=== PATIENT | male | born 1965 | race Caucasian/White ===

== ENCOUNTER 2020-07-18 12:06 | Emergency (ER) | payer MEDICAID, SELFPAY ==
--- NOTE | ~2020-07-18 | XR_ITS ---
EXAMINATION: XR ANKLE, LEFT XR FOOT, LEFT CLINICAL INFORMATION: Fall, trauma, pain COMPARISON: None TECHNIQUE: 2 views left ankle and 2 views left foot are obtained along with a lateral view of the combined ankle and foot for a total of 5 views. FINDINGS: There are old postsurgical changes with screw tracks seen in the mid to lower tibia and fibula. There are old appearing posttraumatic deformity medial malleolus and distal fibular shaft and lateral malleolus without appreciable acute fracture line or cortical disruption. No visible ankle capsular effusion. The subtalar joint and calcaneus are unremarkable. Posterior calcaneal recess is preserved. There are diffuse osteoporotic changes in the ankle and foot with mottled attenuation most notably midfoot. There is a mild hallux valgus great toe. There is an oblique fracture line lateral base first proximal phalanx of indeterminate age, possibly subacute or older. There is questionable cortical disruption neck first proximal phalanx and proximal shaft second toe middle phalanx. XR/XR ankle LT min 3V IMPRESSION: 1. Old appearing posttraumatic changes distal fibula and medial malleolus. No visible acute ankle fracture or dislocation. 2. Fracture lateral base first proximal phalanx of indeterminate age, possibly subacute or older. Questionable hairline fracture neck first proximal phalanx and proximal shaft second toe middle phalanx. Recommend correlation with patient's symptoms and clinical exam. Correlation with outside imaging and/or orthopedic report or be helpful to discern if these areas are sequela from more remote injury.
--- NOTE | ~2020-07-18 | CT_ITS ---
EXAMINATION: HEAD AND CERVICAL SPINE CT WITHOUT CONTRAST CLINICAL INFORMATION: Head injury with loss of consciousness yesterday COMPARISON: Previous head CT July 2006 TECHNIQUE: Axial images through the head and cervical spine without contrast. Sagittal and coronal reconstructions on the technologist workstation were performed. Patient dose 735+4 9 1 mg/cm. This CT examination was performed using dose optimization techniques as appropriate, variously including the following: *Automated exposure control *Adjustment of mA and/or kV according to patient size (this includes techniques or standardized protocols for targeted exams where dose is matched to indication/reason for exam; i.e. extremities or head) *Use of iterative reconstruction technique FINDINGS: Head CT: There is artifact from implanted hearing device in the left temporal occipital lobe left parietal lobes. There is no evidence of an extra-axial collection. There is no evidence of intra-axial or extra-axial hemorrhage. The ventricles and extra-axial CSF spaces are appropriate. Sanches-white matter differentiation is normal. No mass, mass effect or infarct is seen. There is an implanted hearing device projecting over the left temporal bone. No skull fracture is seen. Visualized paranasal sinuses, mastoid air cells and middle ears are clear. Cervical spine CT: There is slight head tilt to the right and curvature of the proximal cervical spine to the left. Bone alignment is otherwise normal. No acute fracture or dislocation is seen. There is a fracture of the posterior left third rib that is probably old. There is question of old trauma to the left scapula versus the coracoclavicular ligament with soft tissue ossification. There is multilevel degenerative spondylosis and degenerative disc disease from C3-C3-C4 to C6-C7. Prevertebral soft tissues are normal. There is a soft tissue ossification of the nuchal ligament probably related to old soft tissue trauma. There is a 3 mm nodule at the left lung apex. This is more posteriorly located than apical nodule seen on March [address] scan and it is uncertain whether this is the same or a new nodule. CT/CT cervical spine wo con IMPRESSION: Head CT: Significant artifact from implanted hearing device. No acute findings. Cervical spine CT: No acute fracture or dislocation seen. Degenerative changes. 3 mm left apical pulmonary nodule.
--- NOTE | ~2020-07-18 | XR_ITS ---
EXAMINATION: XR ANKLE, LEFT XR FOOT, LEFT CLINICAL INFORMATION: Fall, trauma, pain COMPARISON: None TECHNIQUE: 2 views left ankle and 2 views left foot are obtained along with a lateral view of the combined ankle and foot for a total of 5 views. FINDINGS: There are old postsurgical changes with screw tracks seen in the mid to lower tibia and fibula. There are old appearing posttraumatic deformity medial malleolus and distal fibular shaft and lateral malleolus without appreciable acute fracture line or cortical disruption. No visible ankle capsular effusion. The subtalar joint and calcaneus are unremarkable. Posterior calcaneal recess is preserved. There are diffuse osteoporotic changes in the ankle and foot with mottled attenuation most notably midfoot. There is a mild hallux valgus great toe. There is an oblique fracture line lateral base first proximal phalanx of indeterminate age, possibly subacute or older. There is questionable cortical disruption neck first proximal phalanx and proximal shaft second toe middle phalanx. XR/XR foot LT min 3V IMPRESSION: 1. Old appearing posttraumatic changes distal fibula and medial malleolus. No visible acute ankle fracture or dislocation. 2. Fracture lateral base first proximal phalanx of indeterminate age, possibly subacute or older. Questionable hairline fracture neck first proximal phalanx and proximal shaft second toe middle phalanx. Recommend correlation with patient's symptoms and clinical exam. Correlation with outside imaging and/or orthopedic report or be helpful to discern if these areas are sequela from more remote injury.
[2020-07-18 12:22] VITALS: BP 125/82; BP 164/62; PULSE 76; PULSE 78; RESP 16; TEMP 36.3; O2SAT 97; O2SAT 98; BMI 24.2
--- NOTE | 2020-07-18 15:09 | ED.FALL ---
HPI - Fall General Chief Complaint: Extremity Injury, Lower Stated Complaint: ? L TOE FX S/P FALL FROM W/C T-1 Time Seen by Provider: 07/18/20 12:41 Source: patient Mode of arrival: wheelchair Limitations: no limitations History of Present Illness HPI Narrative: 55-year-old male is wheelchair bound with a past medical history of amputation of right leg traumatic, DVT, left ankle fracture,, hepatitis-C, Crohn's disease, and depression presenting to the ED with complaints of a fall with head injury with loss of consciousness unclear down time and right ankle/foot pain since yesterday when he had a mechanical fall where his wheelchair wheel caught in crack of side walk ramp making his wheelchair flip over forward. Reports a bystander helped him up from his wheelchair and brought him home and he decided not to come to the hospital at that time. Although concern for his left ankle/foot due to increasing pain reports he had a old fracture to the left ankle. Currently has a walking boot in place. Denies symptoms prior to the fall. Denies any dizziness, headaches, lightheadedness, change in vision, neck pain/stiffness, nausea/vomiting, cough, sore throat, chest pain, shortness of breath, dyspnea on exertion, orthopnea, palpitations, no pain, diarrhea, constipation, penile discharge, dysuria, hematuria, back pain or any other injuries complaints or concerns at this time. MD complaint: fall Onset (ago): day(s) (Yesterday) Fall from: wheelchair Fall witnessed: yes, by bystander Place fall occurred: street Loss of consciousness: yes Prolonged down time: unclear Symptoms prior to fall: none Location of injury: head and other (right ankle/foot) Severity: moderate Quality: aching Associated symptoms (after fall): other (right ankle/foot pain ) Related Data Previous Rx's Medication Instructions Recorded oxycodone 5 mg PO BID PRN #10 tab 07/18/20 Allergies Allergy/AdvReac Type Severity Reaction Status Date / Time Penicillins [PENICILLINS] Allergy Severe SWELLING Unverified 01/13/20 15:32 shellfish derived Allergy Severe SWELLING Unverified 01/13/20 15:32 [SHELLFISH DERIVED] penicillin G Allergy Unknown facial Verified 05/26/17 00:00 swelling CHOCOLATE Allergy Severe SWELLING Uncoded 01/13/20 15:32 Review of Systems Review of Systems: Constitutional : No changes in activity, No lethargy, No recent prior head injury, No agitation, No increased fussiness ENT/Mouth : No Ear Pain, No Nasal discharge/drainage Eyes: No Eye Pain, No Swelling, No Redness, No Foreign Body, No Vision Changes Cardiovascular : No Chest Pain, No SOB Respiratory : No Cough Gastrointestinal : No Nausea, No Vomiting, No abdominal Pain Genitourinary : No Dysuria, No Urinary Frequency, No Urinary Incontinence, No Urgency, No Flank Pain Musculoskeletal : + joint pain, No neck stiffness, No back pain/injury Skin : No lacerations Neuro : + fall c head injury and LOC, No unsteady gait, No Paresthesias, No altered mental status, No Headache Yes all other systems are reviewed and are negative COUNT INCLUDES THE [facility] Past Medical History Attestation statement: The following information was validated with the patient. Medical History Amputation of leg, right, traumatic DVT (deep venous thrombosis) Social History Social History Advance Directives: No Advance Directives Information Provided: No Physical Exam Vital Signs: Vital Signs: Last Vital Signs Temp 98.4 F 07/18/20 15:39 Pulse 62 07/18/20 15:39 Resp 16 07/18/20 15:39 BP 124/79 07/18/20 15:39 Pulse Ox 99 07/18/20 15:39 Body Mass Index 24.2 Vital signs have been reviewed as normal and appeared to be correct. Blood pressure normal. Heart rate normal. Respiration rate normal. Temperature normal. Oxygen saturation normal. Appearance: Alert. Oriented X3. No acute distress. Head: Normal external exam. Normocephalic. Atraumatic. Able to rotate head bilaterally. Eyes: PERRLA. EOMI. No nystagmus noted. Conjunctiva and sclera normal. Eyelids normal. Corneal reflex normal. ENT: EAC normal. No hemotympanum. No septal hematoma noted. No nasal drainage noted. TM's Normal. Hearing normal. Pharynx normal. Uvula midline. tongue midline. Moist mucous membranes. No trismus noted. No drooling noted. No muffled voice noted. No nystagmus noted. Neck: Normal inspection. Neck supple. FROM. No adenopathy. Trachea midline. Thyroid Normal. No meningeal signs. No neck mass noted. CVS: Normal heart rate and rhythm. Heart sound normal. No murmurs noted. Pulses normal throughout. Respiratory: No respiratory distress. Painless inspiration. Breath sounds normal. No wheezes/rales/rhonchi noted. Chest nontender. No accessory muscle usage noted or decreased air movement noted. Abdomen: Soft and nontender. Bowel sounds normal in all 4 quadrants. No distention noted. No organomegaly noted. No visible injury noted. Back: Nontender. No signs of infection or trauma. Full range of motion noted. Skin: Skin warm and dry. Normal skin color. Normal skin turgor. No rashes/lesions/lacerations noted. Extremities: Patient with amputation to left lower extremity right below the hip joint no signs of infection on stump. Patient with tenderness to palpation to medial and lateral aspect of left ankle no laxity or obvious deformities noted or bruising or abrasions noted. No signs infection noted to left ankle. No calf tenderness noted. Patient with tenderness to palpation to left foot at the 1/2/3 toes with soft tissue swelling. No signs of infection noted. No lower extremity edema. Otherwise all other Extremities exhibit normal range of motion and nontender. Able to shrug shoulders bilaterally and keep up against resistance. Neuro: Oriented X 3. No motor deficit. No sensory deficit. Reflexes normal. Moving all extremities. No focal motor deficits. Cranial nerves II-XI intact bilaterally. Facial strength normal. Normal cognition. Speech normal. Strength 5/5 throughout. No pronator drift. No tremor noted. No fasciculations noted. No rigidity noted. Muscle tone normal throughout. No asterixis noted. Course Course Course Narrative: 13:35pm - 55-year-old male is wheelchair bound with a past medical history of amputation of right leg traumatic, DVT, left ankle fracture,, hepatitis-C, Crohn's disease, and depression presenting to the ED with complaints of a fall with head injury with loss of consciousness unclear down time and right ankle/foot pain since yesterday when he had a mechanical fall where his wheelchair wheel caught in crack of side walk ramp making his wheelchair flip over forward yesterday. - on exam patient is alert and oriented x3. Not in any acute distress. Vital signs are stable within normal limits. No focal neuro deficits are noted. Lungs are clear to auscultation. CV RRR. Abdomen is soft and nontender. Patient noted to have right lower extremity below the hip joint amputation stump appears normal no signs of infection. Left lower leg ankle joint patient with mild soft tissue swelling and tenderness to palpation no signs of infection noted. No calf tenderness or pitting edema noted patient with tenderness to palpation to 1/2/3 toes with mild soft tissue swelling and tenderness to palpation no obvious deformities or signs of infection noted. No other signs of trauma noted. - will obtain CT scan of brain/cervical spine and x-ray of left ankle and left foot Reevaluation(s) Reevaluation #1: - CT scan of brain/cervical spine within normal limits real chronic changes no acute processes noted. X-ray of left ankle revealed chronic changes no acute processes. Foot x-ray revealed age indeterminate fracture to 1st and 5th toes therefore will DC home with instructions to continue using his orthopedic boot give pain meds and referral to Orthopedics and instructions return if any new or worsening symptoms. Patient understands agrees with this plan. Time: 16:20 MDM - Fall Medical Records Attestation: I reviewed the patient's medical records. Lab Data Attestation: I reviewed the patient's lab results. Imaging Data CT scan of brain/cervical spine: Attestation: I personally reviewed and interpreted this imaging study as follows: Radiologist's impression: FINDINGS: Head CT: There is artifact from implanted hearing device in the left temporal occipital lobe left parietal lobes. There is no evidence of an extra-axial collection. There is no evidence of intra-axial or extra-axial hemorrhage. The ventricles and extra-axial CSF spaces are appropriate. Sanches-white matter differentiation is normal. No mass, mass effect or infarct is seen. There is an implanted hearing device projecting over the left temporal bone. No skull fracture is seen. Visualized paranasal sinuses, mastoid air cells and middle ears are clear. Cervical spine CT: There is slight head tilt to the right and curvature of the proximal cervical spine to the left. Bone alignment is otherwise normal. No acute fracture or dislocation is seen. There is a fracture of the posterior left third rib that is probably old. There is question of old trauma to the left scapula versus the coracoclavicular ligament with soft tissue ossification. There is multilevel degenerative spondylosis and degenerative disc disease from C3-C3-C4 to C6-C7. Prevertebral soft tissues are normal. There is a soft tissue ossification of the nuchal ligament probably related to old soft tissue trauma. There is a 3 mm nodule at the left lung apex. This is more posteriorly located than apical nodule seen on March [address] scan and it is uncertain whether this is the same or a new nodule. CT/CT cervical spine wo con IMPRESSION: Head CT: Significant artifact from implanted hearing device. No acute findings. Cervical spine CT: No acute fracture or dislocation seen. Degenerative changes. 3 mm left apical pulmonary nodule. Left ankle/foot x-ray: Attestation: I personally reviewed and interpreted this imaging study as follows: Radiologist's impression: FINDINGS: There are old postsurgical changes with screw tracks seen in the mid to lower tibia and fibula. There are old appearing posttraumatic deformity medial malleolus and distal fibular shaft and lateral malleolus without appreciable acute fracture line or cortical disruption. No visible ankle capsular effusion. The subtalar joint and calcaneus are unremarkable. Posterior calcaneal recess is preserved. There are diffuse osteoporotic changes in the ankle and foot with mottled attenuation most notably midfoot. There is a mild hallux valgus great toe. There is an oblique fracture line lateral base first proximal phalanx of indeterminate age, possibly subacute or older. There is questionable cortical disruption neck first proximal phalanx and proximal shaft second toe middle phalanx. XR/XR foot LT min 3V IMPRESSION: 1. Old appearing posttraumatic changes distal fibula and medial malleolus. No visible acute ankle fracture or dislocation. 2. Fracture lateral base first proximal phalanx of indeterminate age, possibly subacute or older. Questionable hairline fracture neck first proximal phalanx and proximal shaft second toe middle phalanx. Recommend correlation with patient's symptoms and clinical exam. Correlation with outside imaging and/or orthopedic report or be helpful to discern if these areas are sequela from more remote injury. Discharge Plan Discharge Clinical Impression: Ankle sprain and strain, Fall, Head injury with loss of consciousness, Fracture of toe of left foot Patient Disposition: Home, Self-Care Instructions: Toe Fracture (ED), Head Injury (ED) Prescriptions: New oxycodone 5 mg tablet 5 mg PO BID PRN (Reason: pain) Qty: 10 RF: 0 Referrals: Aleisha Blanca MD [Physician] - 2 days (Call tomorrow to make a follow-up appointment within next week or 2)
[2020-07-18 15:39] VITALS: BP 124/79; PULSE 62; RESP 16; TEMP 36.9; O2SAT 99
[2020-07-18] MEDS: oxyCODONE HCl Immed Release 5 MG TABLET PO (16:27)
== END 2020-07-18 16:30 | disposition home or self-care (01) ==
PROVIDERS: Emergency Provider Emergency Medicine Emergency Medical Services
DX: S09.90XA Unspecified injury of head, initial encounter (principal); S93.402A Sprain of unspecified ligament of left ankle, initial encounter; S92.415A Nondisplaced fracture of proximal phalanx of left great toe, initial encounter for closed fracture; S92.525A Nondisplaced fracture of middle phalanx of left lesser toe(s), initial encounter for closed fracture; W05.0XXA Fall from non-moving wheelchair, initial encounter; K50.90 Crohn's disease, unspecified, without complications; Z89.611 Acquired absence of right leg above knee; Z86.718 Personal history of other venous thrombosis and embolism; Z86.19 Personal history of other infectious and parasitic diseases; Y93.89 Activity, other specified; Y92.480 Sidewalk as the place of occurrence of the external cause; Y99.9 Unspecified external cause status
CPT/HCPCS: 70450; 72125; 73610; 73630; 99284

== ENCOUNTER → 2020-08-08 09:52 | Outpatient (BNVA) | payer MEDICAID, SELFPAY | PROVIDERS: PCP Family Medicine; Visit Provider Physician Assistant | DX: S92.402A Displaced unspecified fracture of left great toe, initial encounter for closed fracture (principal); S92.503A Displaced unspecified fracture of unspecified lesser toe(s), initial encounter for closed fracture | CPT/HCPCS: 99202 ==

== ENCOUNTER 2020-09-05 19:58 | Emergency (ER) | payer MEDICAID, SELFPAY ==
--- NOTE | ~2020-09-05 | XR_ITS ---
EXAMINATION: XR CHEST CLINICAL INFORMATION: Pain. COMPARISON: Chest x-ray 12/12/2015. TECHNIQUE: Frontal view of the chest was obtained. 8:40 PM. FINDINGS: Vague small perihilar airspace opacity in the left lung in the superior left perihilar region. The right lung is normally aerated. No pleural effusion. Heart size is normal. The cardiac and mediastinal contours are normal. There is no pulmonary vascular congestion. XR/XR chest 1V IMPRESSION: Vague small perihilar airspace opacity in the left lung.
[2020-09-05 20:08] VITALS: BP 142/85; PULSE 64; RESP 18; TEMP 36.6; O2SAT 96; BMI 25.7
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
[2020-09-05 22:26] LABS: MANUAL DIFF FLAG NO
[2020-09-05 22:27] LABS: Basophils Percent Auto 0.8 % (0-2); Eosinophils Absolute Auto 0.2 X10*3/uL (0.0-0.4); Eosinophils Percent Auto 5.4 % (0-4); Hematocrit 36.1 % (42-52); Hemoglobin 12.3 g/dl (14.0-18.0); Imm Gran Abs Auto 0.02 X10*3/uL (0.00-0.03); Imm Gran Pct Auto 0.5 % (0.0-0.4); Lymphocytes Absolute Auto 0.9 X10*3/uL (1.2-4.9); Lymphocytes Percent Auto 22.4 % (20-40); Mean Corpuscular HGB Conc 34.1 g/dl (31.0-36.0); Mean Corpuscular Hemoglobin 29.9 pg (27.0-33.0); Mean Corpuscular Volume 87.8 fL (80-98); Mean Platelet Volume 9.5 fL (9.4-12.4); Monocytes Absolute Auto 0.4 X10*3/uL (0.1-1.2); Monocytes Percent Auto 9.9 % (2-11); Neutrophils Absolute Auto 2.4 X10*3/uL (2.0-8.3); Platelet Count 208 X10*3/uL (160-400); Red Blood Count 4.11 X10*6/uL (4.60-5.80); Red Cell Distribution Width 11.8 % (11.0-16.0); White Blood Count 3.9 X10*3/uL (4.8-10.8)
[2020-09-05 22:36] LABS: D Dimer < 200 NG/ML
[2020-09-05 22:52] LABS: Anion Gap 13 (12-20); Blood Urea Nitrogen 19 mg/dL (9-16); Calcium 9.1 mg/dL (8.4-10.2); Carbon Dioxide 25 mmol/L (22-29); Chloride 108 mmol/L (96-108); Creatinine Clr Calc Pharmacy 76.3; Estimated Glomerular Filt Rate > 60; Glucose Random 114 mg/dL (60-115); Potassium 3.6 mmol/L (3.3-5.1); Sodium 142 mmol/L (135-145)
[2020-09-05 23:00] LABS: Troponin-I High Sensitivity < 3.5 ng/L (<3.5-35.0)
[2020-09-05 23:02] VITALS: BP 131/79; PULSE 63; RESP 18; O2SAT 97
--- NOTE | 2020-09-05 23:06 | PC.NURSE ---
Pt aaox4, resting on stretcher in NAD, breathing with ease on RA. Pt reports pain in L posterior shoulder. Pt reports it's worse with movement and inspiration though he is able to independently move LUE. pt offers no additional complaints/concerns. pt provided urinal for independent use in bed. Pt stretcher in lowest locked position, rails raised, call vogel within reach.
--- NOTE | 2020-09-05 23:24 | ECG_ITS ---
Test Reason : BACK PAIN Blood Pressure : / mmHG Vent. Rate : 060 BPM Atrial Rate : 060 BPM P-R Int : 150 ms QRS Dur : 082 ms QT Int : 444 ms P-R-T Axes : 069 019 051 degrees QTc Int : 444 ms Normal sinus rhythm Normal ECG When compared with ECG of 02-DEC-2017 10:02, Nonspecific T wave abnormality now evident in Lateral leads Referred By: Chinyere Dia Electronically Signed By:Niles Brandon
[2020-09-05 23:44] VITALS: BP 133/65; PULSE 63; RESP 16; TEMP 36.6; O2SAT 99
== END 2020-09-06 00:15 | disposition home or self-care (01) ==
PROVIDERS: Emergency Provider Emergency Medicine
DX: M25.512 Pain in left shoulder (principal); B19.20 Unspecified viral hepatitis C without hepatic coma; B20 Human immunodeficiency virus [HIV] disease; Z86.718 Personal history of other venous thrombosis and embolism; Z89.611 Acquired absence of right leg above knee
CPT/HCPCS: 36415; 71045; 80048; 84484; 85025; 85379; 93005; 99283; 99284

== ENCOUNTER 2020-10-10 16:38 | Emergency (ER) | payer MEDICAID, SELFPAY ==
--- NOTE | ~2020-10-10 | XR_ITS ---
EXAMINATION: XR ANKLE, LEFT CLINICAL INFORMATION: Fall. COMPARISON: Left ankle 07/18/2020 TECHNIQUE: AP, lateral, and mortise views of the left ankle. FINDINGS: There are old posttraumatic abnormality of both the lateral and medial malleolus that are unchanged since prior exam of 07/18/2020. There is a faint partial radiolucent line still evident at the metaphysis of the fibula at the level the synchondrosis. Ankle mortise remains congruent. There are surgical skin clips at the posterior ankle soft tissues. Ghost tracks again noted in the mid distal shaft of tibia and fibula. There is soft tissue swelling around the ankle, greater on the lateral and medial side. XR/XR ankle LT 2V IMPRESSION: Chronic posttraumatic changes of the medial and lateral malleolus stable in appearance since 07/18/2020. No evidence for an acute osseous abnormality. There is diffuse soft tissue swelling right ankle. If the pain persists CT may be helpful for further evaluation.
[2020-10-10 16:55] VITALS: BP 141/101; BP 144/90; PULSE 63; PULSE 67; RESP 16; TEMP 36.7; O2SAT 96; O2SAT 98; BMI 25.7
[2020-10-10] MEDS: oxyCODONE HCl Immed Release 5 MG TABLET 10 MG PO (18:18)
--- NOTE | 2020-10-10 18:32 | ED.LOWEXIN ---
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 flipped forward with the wheelchair complaining of pain in the left ankle no other injuries Related Data Previous Rx's Medication Instructions Recorded oxycodone 5 mg PO BID PRN #10 tab 07/18/20 cyclobenzaprine 10 mg PO TID PRN #10 tab 09/05/20 oxycodone 5 mg PO Q6H PRN #20 tab 10/10/20 Allergies Allergy/AdvReac Type Severity Reaction Status Date / Time Penicillins [PENICILLINS] Allergy Severe SWELLING Unverified 08/08/20 10:37 shellfish derived Allergy Severe SWELLING Unverified 08/08/20 10:37 [SHELLFISH DERIVED] penicillin G Allergy Unknown facial Verified 08/08/20 10:37 swelling CHOCOLATE Allergy Severe SWELLING Uncoded 08/08/20 10:37 Review of Systems Review of Systems: Yes all other systems are reviewed and are negative [facility] Past Medical History Medical History Amputation of leg, right, traumatic DVT (deep venous thrombosis) Social History Social History Alcohol intake: never Advance Directives: No Advance Directives Information Provided: No Gender identity: male Physical Exam Vital Signs: Vital Signs: Last Vital Signs Temp 98.1 F 10/10/20 16:55 Pulse 67 10/10/20 16:55 Resp 16 10/10/20 16:55 BP 141/101 H 10/10/20 16:55 Pulse Ox 96 10/10/20 16:55 Body Mass Index 25.7 Const: General: comfortable and no acute distress Orientation/consciousness: oriented to person, oriented to place and oriented to time HENMT: Head: Yes normocephalic and Yes atraumatic Eyes: General: appearance normal, both eyes and all related structures Neck: Neck: Yes normal visual inspection and Yes full ROM Chest: Chest palpation & inspection: normal inspection of the chest and normal palpation of entire chest wall Resp: Effort & Inspection: normal respiratory effort Auscultation: clear to auscultation bilaterally Cardio: Palpation: normal PMI Rate: regular rate Rhythm: regular rhythm Heart sounds: S1 normal heart sound present and S2 normal heart sound present GI: Inspection: Yes normal to inspection Palpation (GI): Soft to palpation Auscultation: normal bowel sounds Neuro: General: oriented to person, oriented to place, oriented to time, no focal motor deficits and CN's II-XI intact bilaterally Extrem: Other: Right AKA Ankle/foot/toe images: 1. Diffuse swelling of ankle mortise no deformity neurovascular intact MDM - Extremity Injury (Lower) MDM Narrative Medical decision making narrative: X-ray negative for any acute fracture Louis wrap was applied prescription for oxycodone was given for pain Discharge Plan Discharge Clinical Impression: Ankle sprain Qualifiers: Encounter type: initial encounter Involved ligament of ankle: tibiofibular ligament Laterality: left Qualified Code(s): S93.432A - Sprain of tibiofibular ligament of left ankle, initial encounter Patient Disposition: Home, Self-Care Instructions: Ankle Sprain (ED) Additional Instructions: Louis wrap for support Pain medication as advised Prescriptions: New oxycodone 5 mg tablet 5 mg PO Q6H PRN (Reason: Pain, Moderate) Qty: 20 RF: 0 No Action oxycodone 5 mg tablet 5 mg PO BID PRN (Reason: pain) Qty: 10 RF: 0 cyclobenzaprine 10 mg tablet 10 mg PO TID PRN (Reason: muscle spasm) Qty: 10 RF: 0
== END 2020-10-10 19:10 | disposition home or self-care (01) ==
PROVIDERS: Emergency Provider Internal Medicine
DX: S93.432A Sprain of tibiofibular ligament of left ankle, initial encounter (principal); W05.0XXA Fall from non-moving wheelchair, initial encounter; Y93.9 Activity, unspecified; Y92.9 Unspecified place or not applicable; Y99.9 Unspecified external cause status; Z86.718 Personal history of other venous thrombosis and embolism; Z89.611 Acquired absence of right leg above knee; Z99.3 Dependence on wheelchair
CPT/HCPCS: 73600; 99283

== ENCOUNTER 2020-10-22 20:35 | Emergency (ER) | payer MEDICAID, SELFPAY ==
[2020-10-22 20:45] VITALS: BP 110/71; PULSE 61; RESP 16; TEMP 36.6; O2SAT 96; BMI 26.6
--- NOTE | 2020-10-22 21:38 | ED.LOWEXIN ---
HPI - Extremity Injury (Lower) General Chief Complaint: Extremity Injury, Lower Stated Complaint: body pain Time Seen by Provider: 10/22/20 21:37 History of Present Illness HPI Narrative: 55-year-old male with a history of having traumatic amputation of the right leg. Complaining of pain despite being on Neurontin. Patient also on muscle relaxant. Patient denies any fever chills. No nausea no vomiting. The pain is localized. It is excruciating tonight N/C presents to the emergency department. Related Data Previous Rx's Medication Instructions Recorded oxycodone 5 mg PO BID PRN #10 tab 07/18/20 cyclobenzaprine 10 mg PO TID PRN #10 tab 09/05/20 oxycodone 5 mg PO Q6H PRN #20 tab 10/10/20 Allergies Allergy/AdvReac Type Severity Reaction Status Date / Time Penicillins [PENICILLINS] Allergy Severe SWELLING Unverified 08/08/20 10:37 shellfish derived Allergy Severe SWELLING Unverified 08/08/20 10:37 [SHELLFISH DERIVED] penicillin G Allergy Unknown facial Verified 08/08/20 10:37 swelling CHOCOLATE Allergy Severe SWELLING Uncoded 08/08/20 10:37 Review of Systems Review of Systems: Constitutional: No Weight loss, No Fever, No Chills, No Night Sweats, No Fatigue, No Malaise ENT/Mouth: No Hearing loss, No Ear Pain, No Nasal Congestion, No Sinus Pain, No Hoarseness, No sore throat, No Rhinorrhea, No Swallowing Difficulty Eyes: No Eye Pain, No Swelling, No Redness, No Foreign Body, No Discharge, No Vision Changes Cardiovascular: No Chest Pain, No SOB, No Dyspnea on Exertion, No Orthopnea, No Edema, No Palpitations Respiratory: No Cough, No Sputum, No Wheezing, No Smoke Exposure, No Dyspnea Gastrointestinal: No Nausea, No Vomiting, No Diarrhea, No Constipation, No abdominal Pain, No Hematochezia, No Melena Genitourinary: no irregular bleeding, No Dysuria, No Urinary Frequency, No Hematuria, No Urinary Incontinence, No Urgency, No Flank Pain, No Urinary Flow Changes, No Hesitancy Musculoskeletal: No joint pain, No Myalgias, No Joint Swelling Skin: No Skin Lesions, No rash Neuro: No Weakness, No Numbness, No Paresthesias, No Loss of Consciousness, No Dizziness, No Headache Psych: No Anxiety/Panic, No Depression, No SI/HI/AH/VH, No Social Issues, Heme/Lymph: No Bruising, No Bleeding,No Lymphadenopathy Endocrine: No Polyuria, No Polydipsia, No Temperature Intolerance Yes all other systems are reviewed and are negative [facility] Past Medical History Attestation statement: The following information was validated with the patient. Medical History Amputation of leg, right, traumatic DVT (deep venous thrombosis) Social History Social History Alcohol intake: never Advance Directives: No Advance Directives Information Provided: Yes Gender identity: male Physical Exam Vital Signs: Vital Signs: Last Vital Signs Temp 97.9 F 10/22/20 20:45 Pulse 61 10/22/20 20:45 Resp 16 10/22/20 21:43 BP 110/71 10/22/20 20:45 Pulse Ox 96 10/22/20 20:45 Body Mass Index 26.6 Appearance: Alert. Oriented X3. No acute distress. Eyes: Pupils equal, round and reactive to light. ENT: Pharynx normal. Neck: Normal inspection. Neck supple. No lymph nodes noted. No crepitus CVS: Normal heart rate and rhythm. Pulses normal. Normal S1 and S2 Respiratory: No respiratory distress. Breath sounds normal. No Wheezing. No rales Abdomen: Soft and nontender. No rigidity. No distention. good BS x4 Skin: Skin warm and dry. Normal skin color. Normal skin turgor. Extremities: patient is status post amputation at the level of the proximal thigh on the right. There is no gross redness at the wound. The wound is well healed. Feels warm. No redness noted. No ulcers noted. Neuro: Oriented X 3. No motor deficit. No sensory deficit. Moving all extermities. No slurred speech MDM - Extremity Injury (Lower) MDM Narrative Medical decision making narrative: Patient has symptoms consistent with having phantom pain. No signs of infection.Will give 1 dose of pain medicine. Will discharge patient home. Currently stable condition. Discharge Plan Discharge Clinical Impression: Amputation of leg, right, traumatic Patient Disposition: Home, Self-Care Instructions: Leg Pain (ED) Prescriptions: No Action oxycodone 5 mg tablet 5 mg PO Q6H PRN (Reason: Pain, Moderate) Qty: 20 RF: 0 oxycodone 5 mg tablet 5 mg PO BID PRN (Reason: pain) Qty: 10 RF: 0 cyclobenzaprine 10 mg tablet 10 mg PO TID PRN (Reason: muscle spasm) Qty: 10 RF: 0 Referrals: Physician,Unknown [Primary Care Provider] - 2 days
[2020-10-22 21:43] VITALS: RESP 16
[2020-10-22] MEDS: HYDROmorphone HCl 1 MG/ML SYRINGE IM (21:43)
== END 2020-10-22 22:25 | disposition home or self-care (01) ==
PROVIDERS: Emergency Provider Emergency Medicine Emergency Medical Services
DX: M79.661 Pain in right lower leg (principal); Z89.611 Acquired absence of right leg above knee
CPT/HCPCS: 96372; 99284; J1170

== ENCOUNTER 2020-10-28 18:54 | Emergency (ER) | payer MEDICAID, SELFPAY ==
[2020-10-28 19:07] VITALS: BP 127/95; BP 170/90; PULSE 90; PULSE 95; RESP 16; TEMP 36.4; O2SAT 99; BMI 28.4
--- NOTE | 2020-10-28 19:13 | PC.NURSE ---
PT TO ROOM #5 AFTER HAVING A SYNCOPAL EPISODE AND FALLING DOWN 1-2 STEPS. [employer] APPLIED SALES LEDGER ADMINISTRATOR BY EMS. HL #20G PLACED TO LAC, PT ARRIVES ALERT, RESPIRATIONS EASY, N/L. SKIN W/D. PT DENIES PAIN. PT AWAITING FOR MD'S EVAL.
--- NOTE | 2020-10-28 19:52 | ECG_ITS ---
Test Reason : SYNCOPE Blood Pressure : / mmHG Vent. Rate : 087 BPM Atrial Rate : 087 BPM P-R Int : 154 ms QRS Dur : 080 ms QT Int : 390 ms P-R-T Axes : 055 -18 041 degrees QTc Int : 469 ms Normal sinus rhythm Normal ECG When compared with ECG of 05-SEP-2020 23:42, No significant change was found Referred By: Sukhjinder Gilliam Electronically Signed By:SCARLETT MICHEL
--- NOTE | 2020-10-28 20:10 | ED.FALL ---
HPI - Fall General Chief Complaint: Syncope Stated Complaint: FALL W/LOC Time Seen by Provider: 10/28/20 19:58 Source: patient Mode of arrival: EMS Limitations: no limitations History of Present Illness HPI Narrative: patient right BULMARO was taking cell fever while going down stairs went down one flight of stairs without any problem in the 2nd flight of steps stairs lost balance and fell 2-3 steps without any significant injury no head injury no neck pain was dazed for few seconds Related Data Previous Rx's Medication Instructions Recorded oxycodone 5 mg PO BID PRN #10 tab 07/18/20 cyclobenzaprine 10 mg PO TID PRN #10 tab 09/05/20 oxycodone 5 mg PO Q6H PRN #20 tab 10/10/20 Allergies Allergy/AdvReac Type Severity Reaction Status Date / Time Penicillins [PENICILLINS] Allergy Severe SWELLING Unverified 08/08/20 10:37 shellfish derived Allergy Severe SWELLING Unverified 08/08/20 10:37 [SHELLFISH DERIVED] penicillin G Allergy Unknown facial Verified 08/08/20 10:37 swelling CHOCOLATE Allergy Severe SWELLING Uncoded 08/08/20 10:37 Review of Systems Review of Systems: Yes all other systems are reviewed and are negative [facility] Past Medical History Medical History Amputation of leg, right, traumatic DVT (deep venous thrombosis) Social History Social History Alcohol intake: never Advance Directives: No Advance Directives Information Provided: Yes Gender identity: male Physical Exam Vital Signs: Vital Signs: Last Vital Signs Temp 97.6 F 10/28/20 19:07 Pulse 95 10/28/20 19:07 Resp 16 10/28/20 19:07 BP 127/95 H 10/28/20 19:07 Pulse Ox 99 10/28/20 19:07 Body Mass Index 28.4 Const: General: comfortable and no acute distress Orientation/consciousness: patient oriented x3 HENMT: Head: Yes No palpable skull fracture present, Yes normocephalic and Yes atraumatic Eyes: General: appearance normal, both eyes and all related structures Neck: Neck: Yes normal visual inspection, Yes full ROM, No midline deformity and No tender Chest: Chest palpation & inspection: normal inspection of the chest and normal palpation of entire chest wall Resp: Effort & Inspection: normal respiratory effort Auscultation: clear to auscultation bilaterally Cardio: Palpation: normal PMI Rate: regular rate Rhythm: regular rhythm Heart sounds: S1 normal heart sound present and S2 normal heart sound present Peripheral pulses: Peripheral pulses 2+ throughout GI: Inspection: Yes normal to inspection Palpation (GI): Soft to palpation and nontender : General: No CVA tenderness Back/Spine/Pelvis: Other: R AKA Back: No CVA tenderness and No back tenderness Cervical Spine: cervical ROM normal and No Cervical spine tenderness Thoracic/Lumbar Spine: thoraco-lumbar ROM normal, No paraspinal muscle tenderness, No thoracic spinal tenderness and No lumbar spinal tenderness Skin: General skin exam: no rashes or lesions noted Neuro: General: patient oriented x3 and moves all extremities Extrem: Other: R AKA Discharge Plan Discharge Clinical Impression: Fall (on) (from) other stairs and steps, initial encounter Patient Disposition: Home, Self-Care Instructions: Fall Prevention (ED) Additional Instructions: take Tylenol/Motrin if any pain be careful when going down stairs Prescriptions: No Action oxycodone 5 mg tablet 5 mg PO Q6H PRN (Reason: Pain, Moderate) Qty: 20 RF: 0 oxycodone 5 mg tablet 5 mg PO BID PRN (Reason: pain) Qty: 10 RF: 0 cyclobenzaprine 10 mg tablet 10 mg PO TID PRN (Reason: muscle spasm) Qty: 10 RF: 0 Interventions: ED Discharge Assessment Last Done: 10/28/20 20:35
== END 2020-10-28 22:54 | disposition home or self-care (01) ==
PROVIDERS: Emergency Provider Internal Medicine
DX: Z04.3 Encounter for examination and observation following other accident (principal); Z91.81 History of falling; Z89.611 Acquired absence of right leg above knee
CPT/HCPCS: 93005; 99283

== ENCOUNTER 2020-11-24 15:52 | Outpatient (REF) | payer MEDICAID, SELFPAY ==
--- NOTE | ~2020-11-24 | CT_ITS ---
EXAMINATION: CT CHEST SCREENING CLINICAL INFORMATION: Smoking history COMPARISON: Previous chest x-ray August 2020 and chest CTA 2012 TECHNIQUE: Multidetector volumetric CT imaging of the chest is performed without contrast using low dose technique. Additional 2D coronal and sagittal reformatted images and axial 3D maximum intensity projection (MIP) images are generated on the CT workstation. This CT examination was performed using dose optimization techniques as appropriate, variously including the following: *Automated exposure control *Adjustment of mA and/or kV according to patient size (this includes techniques or standardized protocols for targeted exams where dose is matched to indication/reason for exam; i.e. extremities or head) *Use of iterative reconstruction technique DLP: 53 mGy-cm FINDINGS: LUNGS: There is mild biapical pleural and parenchymal scarring. There is a 3 mm left apical nodule axial image 99 series 5. This may be related to biapical pleural and parenchymal scarring. There is linear scarring or chronic subsegmental atelectasis in the apical posterior segment of the left upper lobe near the pleural fissure axial image 186 series 5. There are clustered peribronchial nodules seen in the left lower lobe. Largest nodule measures 0.7 x 1.7 cm axial image 2:305. this is new from previous exam March 2013. Clustered peribronchial appearance favors an infectious or inflammatory process. The lungs are otherwise clear. MEDIASTINUM: The mediastinum is normal. PLEURA: There is no pleural effusion. There is no pneumothorax. There is left pleural thickening adjacent to a rib fractures. AXILLA: No lymphadenopathy. UPPER ABDOMEN: The gallbladder has been removed. OSSEOUS STRUCTURES: There are multiple healing left rib fractures. There is a left scapula fracture. There may be soft tissue ossification of the coracoclavicular ligament. CT/CT lung screening IMPRESSION: Scarring or subsegmental atelectasis in the left upper lobe adjacent to multiple left-sided rib fractures. Clustered peribronchial left lower lobe nodules, largest measuring 0.7 x 1.7 cm, also adjacent to left-sided rib fractures. Clustered peribronchial appearance favors an infectious or inflammatory process. Multiple healing left left-sided rib fractures and left scapula fracture. ASSESSMENT: Lung-RADS category 3: Probably Benign RECOMMENDATION: Six-month low-dose chest CT follow-up recommended
== END 2020-11-24 15:53 | disposition home or self-care (01) ==
LOC: HO.CT 15:52
PROVIDERS: Visit Provider Physician Assistant Medical
DX: Z12.2 Encounter for screening for malignant neoplasm of respiratory organs (principal); Z87.891 Personal history of nicotine dependence
CPT/HCPCS: 71271; G0296

== ENCOUNTER 2021-02-14 04:29 | Emergency (ER) | payer MEDICAID, SELFPAY ==
[2021-02-14 04:40] VITALS: BP 113/68; BP 120/70; PULSE 65; PULSE 70; RESP 18; TEMP 36.6; O2SAT 97; O2SAT 98; BMI 27.4
--- NOTE | 2021-02-14 04:43 | ED_ITS ---
HPI - General Adult General Stated complaint: R leg pain (amputee) Time Seen by Provider: 02/14/21 04:39 Source: patient and EMS Mode of arrival: EMS Limitations: no limitations History of Present Illness HPI narrative: Patient comes emergency room complaining of phantom pain. Patient states his right leg, which has been amputated approximately 1 year, states it is hurting. Patient denies falling on the amputation site, no infections, no fever, no chills, no joint pain. Related Data Previous Rx's Medication Instructions Recorded oxycodone 5 mg tablet 5 mg PO BID PRN #10 tab 07/18/20 cyclobenzaprine 10 mg tablet 10 mg PO TID PRN #10 tab 09/05/20 oxycodone 5 mg tablet 5 mg PO Q6H PRN #20 tab 10/10/20 Allergies Allergy/AdvReac Type Severity Reaction Status Date / Time Penicillins [PENICILLINS] Allergy Severe SWELLING Verified 02/14/21 04:44 shellfish derived Allergy Severe SWELLING Verified 02/14/21 04:44 [SHELLFISH DERIVED] penicillin G Allergy Unknown facial Verified 02/14/21 04:44 swelling CHOCOLATE Allergy Severe SWELLING Uncoded 08/08/20 10:37 Review of Systems Review of Systems: Constitutional : No Weight loss, No Fever, No Chills, No Night Sweats, No Fatigue, No Malaise ENT/Mouth : No Hearing loss, No Ear Pain, No Nasal Congestion, No Sinus Pain, No Hoarseness, No sore throat, No Rhinorrhea, No Swallowing Difficulty Eyes: No Eye Pain, No Swelling, No Redness, No Foreign Body, No Discharge, No Vision Changes Cardiovascular : No Chest Pain, No SOB, No Dyspnea on Exertion, No Orthopnea, No Edema, No Palpitations Respiratory : No Cough, No Sputum, No Wheezing, No Smoke Exposure, No Dyspnea Gastrointestinal : No Nausea, No Vomiting, No Diarrhea, No Constipation, No abdominal Pain, No Hematochezia, No Melena Genitourinary : no irregular bleeding, No Dysuria, No Urinary Frequency, No Hematuria, No Urinary Incontinence, No Urgency, No Flank Pain, No Urinary Flow Changes, No Hesitancy Musculoskeletal : Chronic joint pain in the left leg, phantom leg pain present in the right leg Skin : No Skin Lesions, No rash Neuro : No Weakness, No Numbness, No Paresthesias, No Loss of Consciousness, No Dizziness, No Headache Psych : No Anxiety/Panic, No Depression, No SI/HI/AH/VH, No Social Issues, Heme/Lymph: No Bruising, No Bleeding,No Lymphadenopathy Endocrine : No Polyuria, No Polydipsia, No Temperature Intolerance [facility] Past Medical History Medical History Amputation of leg, right, traumatic DVT (deep venous thrombosis) Hepatitis C HIV (human immunodeficiency virus infection) Personal history of nicotine dependence Surgical History History of cochlear implant History of colonoscopy History of laparoscopic cholecystectomy History of liver biopsy History of right above knee amputation Social History Social History (Updated 11/24/20 @ 15:50 by Melva Naranjo PA-C) Alcohol intake: never Patient Tobacco Use Status: Former Tobacco user Years Smoked: (onset 16, 1/2-1ppd x 38yrs, 30pyh, quit 01/01/2020) Advance Directives: No Advance Directives Information Provided: Yes Gender identity: Male Physical Exam Const: Other: Appearance: Alert. Oriented X3. No acute distress. Eyes: Pupils equal, round and reactive to light. ENT: Pharynx normal. Neck: Normal inspection. Neck supple. No lymph nodes noted. No crepitus CVS: Normal heart rate and rhythm. Pulses normal. Normal S1 and S2 Respiratory: No respiratory distress. Breath sounds normal. No Wheezing. No rales Abdomen: Soft and nontender. No rigidity. No distention. good BS x4 Skin: Skin warm and dry. Normal skin color. Normal skin turgor. Extremities: Left leg in Aircast boot, right leg amputated, stump clean, no erythema, not tender to palpation Neuro: Oriented X 3. No motor deficit. No sensory deficit. Moving all extermities. No slurred speech. Course Course Course Narrative: Patient likely has phantom limb pain. Patient was provided with 1 shot of Toradol. Discharge Plan Discharge Clinical Impression: Phantom limb pain Patient Disposition: Home, Self-Care Additional Instructions: Please follow-up with your primary care physician tomorrow. If you have any worsening or new symptoms, please return to the emergency room or call 911 Prescriptions: No Action oxycodone 5 mg tablet 5 mg PO Q6H PRN (Reason: Pain, Moderate) Qty: 20 RF: 0 oxycodone 5 mg tablet 5 mg PO BID PRN (Reason: pain) Qty: 10 RF: 0 cyclobenzaprine 10 mg tablet 10 mg PO TID PRN (Reason: muscle spasm) Qty: 10 RF: 0
[2021-02-14] MEDS: Ketorolac Tromethamine 60 MG/2 ML VIAL IM (04:47)
== END 2021-02-14 08:20 | disposition home or self-care (01) ==
PROVIDERS: Emergency Provider Emergency Medicine
DX: G54.6 Phantom limb syndrome with pain (principal)
CPT/HCPCS: 96372; 99283; 99284; J1885

== ENCOUNTER 2021-03-05 09:53 | Outpatient (REF) | payer MEDICAID, SELFPAY ==
--- NOTE | ~2021-03-05 | CT_ITS ---
EXAMINATION: CT CHEST SCREENING CLINICAL INFORMATION: 29 [id number] history. Former smoker. Quit 4 years ago. COMPARISON: Previous chest CT scans most recent October 2020 TECHNIQUE: Multidetector volumetric CT imaging of the chest is performed without contrast using low dose technique. Additional 2D coronal and sagittal reformatted images and axial 3D maximum intensity projection (MIP) images are generated on the CT workstation. This CT examination was performed using dose optimization techniques as appropriate, variously including the following: *Automated exposure control *Adjustment of mA and/or kV according to patient size (this includes techniques or standardized protocols for targeted exams where dose is matched to indication/reason for exam; i.e. extremities or head) *Use of iterative reconstruction technique DLP: 62 mGy-cm FINDINGS: LUNGS: There is mild biapical pleural parenchymal scarring. There is a 3 mm left upper lobe nodule axial image 78 series 5. This is stable and may be related to pleural parenchymal scarring. There is scarring or chronic subsegmental atelectasis in the left upper lobe near the left pleural fissure that is stable. There is interval decrease in size and number of clustered left lower lobe peribronchial nodules. Largest residual nodule measures 4 mm axial image 276 series 5. No new pulmonary nodules are seen. No endobronchial or endotracheal lesion is seen. MEDIASTINUM: There are small mediastinal lymph nodes that are stable. No enlarged lymph nodes are seen. The mediastinum is otherwise normal. PLEURA: There is pleural thickening adjacent to the left-sided rib fractures and the left upper lobe. There is no pleural effusion. AXILLA: No lymphadenopathy. UPPER ABDOMEN: The gallbladder has been removed. OSSEOUS STRUCTURES: There are multiple old left rib fractures. There may be ossification of the coracoclavicular ligament. CT/CT lung screen follow up IMPRESSION: Interval decrease in size and number of the clustered left lower lobe peribronchial nodules, largest residual nodule measuring 4 mm. Evidence of previous trauma to the left upper chest similar to previous exam. ASSESSMENT: Lung-RADS category 2: Benign RECOMMENDATION: Annual low-dose chest CT follow-up recommended.
== END 2021-03-05 09:54 | disposition home or self-care (01) ==
LOC: HO.CT 09:53
PROVIDERS: Visit Provider Physician Assistant Medical
DX: Z12.2 Encounter for screening for malignant neoplasm of respiratory organs (principal); Z87.891 Personal history of nicotine dependence
CPT/HCPCS: 71250

== ENCOUNTER 2021-08-02 14:00 | Outpatient (RCR) | payer MEDICAID, SELFPAY | END 2021-09-10 09:06 | disposition home or self-care (01) | LOC: HO.PT 14:00 | PROVIDERS: PCP General Practice; Visit Provider General Practice | DX: Z89.611 Acquired absence of right leg above knee (principal) | CPT/HCPCS: 95992; 97110; 97112; 97116; 97140; 97163; 97530 ==

== ENCOUNTER 2021-10-18 13:26 | Outpatient (REF) | payer MEDICAID, SELFPAY ==
--- NOTE | ~2021-10-18 | XR_ITS ---
EXAMINATION: XR FOOT, LEFT CLINICAL INFORMATION: Left foot pain COMPARISON: Radiographs left foot 07/18/2020. TECHNIQUE: Left foot is imaged in 4 views. FINDINGS: No acute or healing fracture, dislocation, or destructive process. There is artifactual longitudinal linear lucency lateral base first proximal phalanx on 2 views related to superimposed skin fold. There is mild generalized osteopenia. No focal destructive process or periostitis. There is an old healed fracture distal fibular shaft and screw tract lower tibial shaft. There is some edema in Kager's fat pad. The retrocalcaneal recess is preserved. There is small posterior calcaneal spur. Midfoot shows no focal joint narrowing or erosive change. Forefoot shows degenerative changes first MTP with mild joint narrowing and spurring, mild hallux valgus, and small medial bunion. No erosive change. XR/XR foot LT min 3V IMPRESSION: -No acute or healing fracture, dislocation, destructive process. -Non-specific edema in Kager's fat pad. Retrocalcaneal recess preserved. -Degenerative changes first MTP with mild hallux valgus and medial bunion.
[2021-10-18 13:56] LABS: MANUAL DIFF FLAG NO
[2021-10-18 14:23] LABS: Basophils Percent Auto 0.2 % (0-2); Eosinophils Absolute Auto 0.1 X10*3/uL (0.0-0.4); Hemoglobin 12.8 g/dl (14.0-18.0); Imm Gran Abs Auto 0.01 X10*3/uL (0.00-0.03); Imm Gran Pct Auto 0.2 % (0.0-0.4); Lymphocytes Absolute Auto 0.7 X10*3/uL (1.2-4.9); Lymphocytes Percent Auto 12.1 % (20-40); Mean Corpuscular HGB Conc 32.8 g/dl (31.0-36.0); Mean Corpuscular Hemoglobin 28.5 pg (27.0-33.0); Mean Corpuscular Volume 86.9 fL (80.0-98.0); Mean Platelet Volume 9.9 fL (9.4-12.4); Monocytes Absolute Auto 0.3 X10*3/uL (0.1-1.2); Monocytes Percent Auto 5.7 % (2-11); Neutrophils Absolute Auto 4.4 x10*3/uL (2.0-8.3); Neutrophils Percent Auto 79.8 % (45-73); Platelet Count 280 X10*3/uL (160-400); Red Blood Count 4.49 X10*6/uL (4.60-5.80); Red Cell Distribution Width 12.9 % (11.0-16.0); White Blood Count 5.5 X10*3/uL (4.8-10.8)
[2021-10-18 14:53] LABS: Alanine Aminotransferase 18 U/L (0-40); Albumin Level 4.3 g/dL (3.5-5.0); Alkaline Phosphatase 196 U/L (39-117); Anion Gap 12 (12-20); Aspartate Amino Transferase 36 U/L (5-37); Bilirubin Total 0.6 mg/dL (0.0-1.0); Blood Urea Nitrogen 12 mg/dL (9-16); Calcium 9.2 mg/dL (8.4-10.2); Carbon Dioxide 29 mmol/L (22-29); Chloride 103 mmol/L (96-108); Cholesterol 204 mg/dL; Estimated Glomerular Filt Rate > 60; Glucose Random 116 mg/dL (60-115); HDL Cholesterol 28 mg/dL; LDL Cholesterol Calculated 126 mg/dl; Potassium 4.3 mmol/L (3.3-5.1); Sodium 140 mmol/L (135-145); Total Protein 7.5 g/dL (6.5-8.0); Triglycerides 254 mg/dL
[2021-10-18 15:58] LABS: Appearance Urine CLEAR; Color Urine YELLOW; Glucose Urine UA NEG (NEG); Leukocyte Esterase Urine NEG (NEG); Nitrite Urine NEG (NEG); Specific Gravity - Urine 1.025 (1.005-1.025); Urine Blood NEG (NEG); Urine Ketones NEG (NEG); Urine Protein NEG (NEG-TRACE)
[2021-10-20 13:07] LABS: HCV Log PCR <1.18 NOT DETECTED Log IU/mL (NOT DETECTED); HepC Viral Load <15 NOT DETECTED IU/mL (NOT DETECTED)
[2021-10-20 14:27] LABS: HIV RNA PCR Qn Copies <20 DETECTED copies/mL (NOT DETECTED); HIV RNA PCR Qn Log Copies <1.30 DETECTED (NOT DETECTED)
[2021-10-21 18:06] LABS: TS Negative Control Passed; TS Panel A 2; TS Panel B 1; TS Positive Control Passed; TSpotTB Negative (Negative)
[2021-10-23 11:26] LABS: Absolute CD3 Count 322 cells/uL (840-3060); Absolute CD4 Count 113 cells/uL (490-1740); Absolute CD8 Count 212 cells/uL (180-1170); Absolute Lymphocytes 681 cells/uL (850-3900); CD4 CD8 Ratio 0.53 (0.86-5.00); Percent CD3 Cells 47 % (57-85); Percent CD4 Cells 17 % (30-61); Percent CD8 Cells 31 % (12-42)
== END 2021-10-18 13:27 | disposition home or self-care (01) ==
LOC: HO.XRAY 13:26
PROVIDERS: Absent Provider General Practice; PCP General Practice; Visit Provider Family Medicine
DX: Z11.1 Encounter for screening for respiratory tuberculosis (principal); B20 Human immunodeficiency virus [HIV] disease; M79.672 Pain in left foot
CPT/HCPCS: 36415; 73630; 80053; 80061; 81003; 85025; 86359; 86360; 86481; 87522; 87536

== ENCOUNTER 2021-10-21 19:28 | Emergency (ER) | payer MEDICAID, SELFPAY ==
--- NOTE | ~2021-10-21 | CT_ITS ---
EXAMINATION: CT ABDOMEN AND PELVIS WITH CONTRAST CLINICAL INFORMATION: Abdominal pain COMPARISON: None TECHNIQUE: Multidetector volumetric images were obtained from the superior aspect of the liver through the pubic symphysis following administration 85 mL of Omnipaque 350 intravenous contrast. Sagittal and coronal reformatted images were obtained on the technologist's workstation. Oral contrast: No This CT examination was performed using dose optimization techniques as appropriate, variously including the following: *Automated exposure control *Adjustment of mA and/or kV according to patient size (this includes techniques or standardized protocols for targeted exams where dose is matched to indication/reason for exam; i.e. extremities or head) *Use of iterative reconstruction technique DLP: 571 mGy-cm FINDINGS: LUNG BASES: The visualized lung bases are unremarkable. LIVER, GALLBLADDER, AND BILIARY TREE: The liver is normal in size, shape, and attenuation. No focal hepatic lesion or biliary ductal dilatation is present. Status post cholecystectomy PANCREAS: Unremarkable. SPLEEN: Unremarkable. ADRENAL GLANDS: Unremarkable. KIDNEYS AND URETERS: The kidneys are normal in size, shape, and attenuation. No hydronephrosis, hydroureter, or calculi seen. No perinephric stranding. BLADDER: Unremarkable. GASTROINTESTINAL TRACT: The small and large bowel are unremarkable. The appendix is unremarkable. ABDOMINAL WALL: Soft tissue stranding over the inguinal region on the right and abnormal-appearing right hip joint. Dystrophic calcification. No convincing evidence for an acute bony erosion. LYMPH NODES: Normal. VASCULAR: There is low density in the visualized common femoral vein. Thrombus here cannot be excluded PELVIC VISCERA: Prominent prostate. This is likely incidental in the inferior aspect of the bladder. Given this I cannot exclude a bladder floor lesion OSSEOUS STRUCTURES: Findings as described in the hip. Correlation of course needs to be made clinically. CT/CT abdomen pelvis w con IMPRESSION: The bowel pattern is within normal limits. There is no free fluid. Abnormal appearing right hip. Correlation needs to be made clinically. Calcification which may be dystrophic. No convincing evidence for an acute bony erosion. There is soft tissue pipe changer the common femoral region and again this could be chronic. Hematoma or other acute finding cannot be excluded here. Again clinical correlation needs to be made. Note is made of low density in the visualized right common femoral vein. Thrombus cannot be excluded within the vein. Consider ultrasound to further evaluate. Prominent prostate with an indentation on the inferior bladder. Given this and inferior bladder wall lesion cannot be excluded Fleischner guidelines were followed.
--- NOTE | ~2021-10-21 | US_ITS ---
EXAMINATION: Targeted sonography of the right inguinal region. CLINICAL INFORMATION: Density on CT to right femoral vein. COMPARISON: CT abdomen pelvis 10/21/2021. TECHNIQUE: Targeted grayscale, color and spectral Doppler ultrasonography of the right inguinal vessels. FINDINGS: Targeted sonography of the right inguinal region is identified. The right common femoral vein demonstrates normal grayscale, color and spectral Doppler interrogation and normal compressibility. The right common femoral artery demonstrates no measurable spectral flow and appears to have central intermediate low echogenicity. US/US venous duplex LE RT IMPRESSION: *Findings suspicious for occlusive thrombus within the right common femoral artery. This result was discussed with SHAYY Liang by telephone at 10/22/2021 12:05 AM and it was ascertained that the content and urgency of the report was understood at the time of direct communication.
--- NOTE | ~2021-10-21 | US_ITS ---
EXAMINATION: US PELVIS LIMITED (BLADDER) CLINICAL INFORMATION: Abdominal pain. Lower lobe lateral lesion.. COMPARISON: None TECHNIQUE: Real-time imaging of the bladder. FINDINGS: BLADDER: Well distended and normal. Both ureteral jet are not visualized. Prevoid bladder volume is 110 mL. Postvoid bladder volume is not obtained. US/US bladder IMPRESSION: Nonvisualization of bilateral ureteral jets. The bladder is otherwise unremarkable.
--- NOTE | 2021-10-21 10:33 | ECG_ITS ---
Test Reason : LEG PAIN Blood Pressure : / mmHG Vent. Rate : 065 BPM Atrial Rate : 065 BPM P-R Int : 150 ms QRS Dur : 072 ms QT Int : 414 ms P-R-T Axes : 044 004 022 degrees QTc Int : 430 ms Normal sinus rhythm Normal ECG When compared with ECG of 21-OCT-2021 19:50, QRS axis Shifted right Non-specific change in ST segment in Lateral leads Referred By: Mary Carmen Mckee Electronically Signed By:SCARLETT MICHEL
--- NOTE | 2021-10-21 19:41 | ECG_ITS ---
Test Reason : LEG PAIN Blood Pressure : / mmHG Vent. Rate : 067 BPM Atrial Rate : 067 BPM P-R Int : 144 ms QRS Dur : 076 ms QT Int : 410 ms P-R-T Axes : 000 188 162 degrees QTc Int : 433 ms Normal sinus rhythm Right superior axis deviation Abnormal ECG When compared with ECG of 28-OCT-2020 19:52, QRS axis Shifted left Non-specific change in ST segment in Lateral leads Referred By: Mary Carmen Mckee Electronically Signed By:SCARLETT MICHEL
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
[2021-10-21 19:44] VITALS: BP 98/68; PULSE 76; RESP 17; TEMP 35.6; O2SAT 93; BMI 26.7
[2021-10-21 19:48] VITALS: BP 132/76; PULSE 76; O2SAT 94
[2021-10-21 19:56] LABS: MANUAL DIFF FLAG NO
[2021-10-21 20:00] LABS: Basophils Percent Auto 0.7 % (0-2); Eosinophils Absolute Auto 0.2 X10*3/uL (0.0-0.4); Eosinophils Percent Auto 3.7 % (0-4); Hematocrit 39.3 % (42.0-52.0); Hemoglobin 13.1 g/dl (14.0-18.0); Imm Gran Abs Auto 0.01 X10*3/uL (0.00-0.03); Imm Gran Pct Auto 0.2 % (0.0-0.4); Lymphocytes Absolute Auto 1.4 X10*3/uL (1.2-4.9); Lymphocytes Percent Auto 22.9 % (20-40); Mean Corpuscular HGB Conc 33.3 g/dl (31.0-36.0); Mean Corpuscular Volume 86.9 fL (80.0-98.0); Mean Platelet Volume 9.7 fL (9.4-12.4); Monocytes Absolute Auto 0.5 X10*3/uL (0.1-1.2); Monocytes Percent Auto 7.3 % (2-11); Neutrophils Percent Auto 65.2 % (45-73); Platelet Count 286 X10*3/uL (160-400); Red Blood Count 4.52 X10*6/uL (4.60-5.80); Red Cell Distribution Width 12.9 % (11.0-16.0); White Blood Count 6.2 X10*3/uL (4.8-10.8)
[2021-10-21 20:15] LABS: Alanine Aminotransferase 18 U/L (0-40); Albumin Level 4.2 g/dL (3.5-5.0); Alkaline Phosphatase 190 U/L (39-117); Anion Gap 12 (12-20); Aspartate Amino Transferase 30 U/L (5-37); Bilirubin Direct 0.2 mg/dL (0.0-0.5); Bilirubin Total 0.5 mg/dL (0.0-1.0); Blood Urea Nitrogen 22 mg/dL (9-16); Calcium 9.3 mg/dL (8.4-10.2); Carbon Dioxide 26 mmol/L (22-29); Chloride 106 mmol/L (96-108); Creatinine Clr Calc Pharmacy 55.7; Estimated Glomerular Filt Rate 56; Glucose Random 106 mg/dL (60-115); Lipase 35 U/L (8-78); Potassium 4.2 mmol/L (3.3-5.1); Sodium 140 mmol/L (135-145); Total Protein 7.7 g/dL (6.5-8.0)
[2021-10-21] MEDS: iohexoL 350 MG/ML 100 ML INFUS..BTL IV (20:44)
[2021-10-21 21:35] LABS: Appearance Urine CLEAR; Color Urine DK YELLOW; Glucose Urine UA NEG (NEG); Leukocyte Esterase Urine NEG (NEG); Nitrite Urine NEG (NEG); PH 5.5 (5.0-8.0); Specific Gravity - Urine 1.025 (1.005-1.025); Urine Blood NEG (NEG); Urine Ketones NEG (NEG); Urine Protein NEG (NEG-TRACE)
[2021-10-21] MEDS: diazePAM 2 MG TABLET PO (21:44)
[2021-10-21 23:41] LABS: INTERNATIONAL NORM RATIO 0.9 (0.9-1.1); Prothrombin Time 10.5 SEC (9.9-13.0)
[2021-10-21 23:44] LABS: Partial Thromboplastin Time 36.3 SEC (24.1-38.0)
[2021-10-22] MEDS: 0.9 % Sodium Chloride 1,000 ML 999 ML IVCONT (00:12)
[2021-10-22] MEDS: Apixaban 5 MG TABLET 10 MG PO (01:14)
[2021-10-22] MEDS: oxyCODONE HCl Immed Release 5 MG TABLET PO (01:14)
[2021-10-22 01:17] VITALS: BP 134/78; PULSE 60; RESP 17; TEMP 36.6; O2SAT 96
== END 2021-10-22 02:21 | disposition home or self-care (01) ==
PROVIDERS: Nurse Practitioner Family; Emergency Provider Emergency Medicine; PCP General Practice
DX: I82.411 Acute embolism and thrombosis of right femoral vein (principal); R10.31 Right lower quadrant pain; N40.0 Benign prostatic hyperplasia without lower urinary tract symptoms; R94.31 Abnormal electrocardiogram [ECG] [EKG]; Z89.611 Acquired absence of right leg above knee
CPT/HCPCS: 36415; 74177; 76857; 80048; 80076; 81003; 83690; 85025; 85610; 85730; 93005; 93971; 96360; 99284; Q9967

== ENCOUNTER → 2021-11-08 13:40 | Outpatient (BNVA) | payer MEDICAID, SELFPAY | PROVIDERS: PCP General Practice; Visit Provider Surgery Vascular Surgery | DX: I73.9 Peripheral vascular disease, unspecified (principal); S88.911D Complete traumatic amputation of right lower leg, level unspecified, subsequent encounter | CPT/HCPCS: 99202 ==

== ENCOUNTER 2021-11-21 15:10 | Outpatient (REF) | payer MEDICAID, SELFPAY ==
[2021-11-21 16:11] LABS: Blood Urea Nitrogen 15 mg/dL (9-16); Estimated Glomerular Filt Rate > 60
== END 2021-11-21 15:11 | disposition home or self-care (01) ==
LOC: HO.LAB 15:10
PROVIDERS: PCP General Practice; Visit Provider Surgery Vascular Surgery
DX: I73.9 Peripheral vascular disease, unspecified (principal)
CPT/HCPCS: 36415; 82565; 84520

== ENCOUNTER 2021-11-23 08:22 | Outpatient (REF) | payer MEDICAID, SELFPAY ==
--- NOTE | ~2021-11-23 | CT_ITS ---
EXAMINATION: CTA ABDOMEN, PELVIS AND LOWER EXTREMITY RUNOFF WITH CONTRAST HISTORY: Peripheral vascular disease. DESCRIPTION: Routine abdominal aorta and lower extremity runoff CTA protocol with contrast was performed. 100 mL of Omnipaque 350 was administered. Images were reviewed and processed on an independent dedicated 3-D workstation and 3-D images were reconstructed with concurrent radiologist supervision and subsequently interpreted. The images were reviewed and postprocessed on a dedicated 3-D workstation. DLP: 694 mGy-cm COMPARISON: CT abdomen and pelvis with contrast on 10/21/2021 FINDINGS: VASCULAR: Heart: The visualized heart is normal in size. No pericardial effusion. Abdominal Aorta: Normal caliber, patent. Mesenteric Arteries:The celiac axis, superior mesenteric artery and inferior mesenteric artery are patent. The left gastric artery originates directly from the aorta. Renal Arteries: The right renal artery is widely patent without evidence of hemodynamically significant stenosis. The left renal artery is widely patent without evidence of hemodynamically significant stenosis. Inferior Vena Cava: Normal caliber. Right Lower Extremity: Common iliac artery: Normal caliber, widely patent. External iliac artery: The proximal and mid external iliac artery is patent. The distal vessel is irregular and occludes consistent with proximal right lower extremity amputation at the thigh. Internal iliac artery: Normal caliber, widely patent. Left Lower Extremity: Common iliac artery: Normal caliber, widely patent. External iliac artery: Normal caliber, widely patent. Internal iliac artery: Normal caliber, widely patent. Common femoral artery: Normal caliber, widely patent. Superficial femoral artery: Normal caliber, widely patent. Profunda femoris artery: Normal caliber, widely patent. Popliteal artery: Normal caliber, widely patent. Anterior tibial artery: Normal caliber, widely patent. Posterior tibial artery: Normal caliber, widely patent. Peroneal artery: Normal caliber, widely patent. NONVASCULAR: Lung Bases: The visualized lung bases are unremarkable. Liver: The liver is normal in size, shape, and attenuation. No focal hepatic lesion or biliary ductal dilatation is present. Gallbladder: Surgically absent. Pancreas: Unremarkable. Spleen: Unremarkable. Adrenal Glands: Unremarkable. Kidneys and Ureters: No significant change from 10/21/2021. Symmetric nephrograms. Stable left renal cyst. No hydronephrosis. Bladder: Unremarkable. Gastrointestinal Tract: The small and large bowel are unremarkable. The appendix is unremarkable. Abdominal Wall: No large hernias. Soft tissue stranding/scarring and muscle atrophy along the right hip is stable and consistent with prior surgery. Lymph Nodes: Normal. Pelvis: Mild prostatomegaly. Osseous Structures: No suspicious lesions. Irregularity of the left distal fibula and tibia redemonstrated most consistent with prior injury. Surgical clips are seen adjacent to the ankle posteriorly. The patient is post right lower extremity amputation at the thigh. CT/CT angio abd aorta runoff IMPRESSION: 1. Patent three-vessel runoff to the left lower extremity. 2. Post proximal right lower extremity amputation at the thigh.
[2021-11-23] MEDS: iohexoL 350 MG/ML 100 ML INFUS..BTL IV (09:30)
== END 2021-11-23 08:23 | disposition home or self-care (01) ==
LOC: HO.CT 08:22
PROVIDERS: PCP General Practice; Visit Provider Surgery Vascular Surgery
DX: I73.9 Peripheral vascular disease, unspecified (principal)
CPT/HCPCS: 75635; Q9967

== ENCOUNTER → 2021-12-20 15:38 | Outpatient (BNVA) | payer MEDICAID, SELFPAY | PROVIDERS: PCP General Practice; Visit Provider Surgery Vascular Surgery | DX: I73.9 Peripheral vascular disease, unspecified (principal); Z89.611 Acquired absence of right leg above knee | CPT/HCPCS: 99212 ==

== ENCOUNTER 2022-01-03 16:56 | Emergency (ER) | payer MEDICAID, SELFPAY ==
--- NOTE | ~2022-01-03 | XR_ITS ---
EXAMINATION: XR CLAVICLE, LEFT CLINICAL INFORMATION: Status post fall COMPARISON: None TECHNIQUE: 2 views of the left clavicle. FINDINGS: No acute clavicle fractures identified. AC joint is congruent and intact. There is chronic proliferative bone arising from the coracoid and the distal clavicle compatible with prior remote injury. Degenerative disc disease and uncovertebral spurring noted in the lower cervical spine. XR/XR clavicle LT IMPRESSION: 1. No acute clavicle fracture. 2. Findings compatible with remote injury of the distal clavicle and region of the coracoclavicular ligaments.
[2022-01-03 17:30] VITALS: BP 130/94; PULSE 73; O2SAT 96; BMI 29.0
[2022-01-03 18:33] VITALS: BP 140/87; PULSE 68; RESP 16; TEMP 36.4; O2SAT 96
[2022-01-03] MEDS: oxyCODONE HCl Immed Release 5 MG TABLET 10 MG PO (18:45)
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
== END 2022-01-03 19:16 | disposition home or self-care (01) ==
PROVIDERS: Emergency Provider Internal Medicine
DX: M25.512 Pain in left shoulder (principal); Z79.899 Other long term (current) drug therapy
CPT/HCPCS: 73000; 99283; 99284

== ENCOUNTER 2022-03-17 14:33 | Inpatient (IN) | payer MEDICAID, SELFPAY ==
[2022-03-17] VITALS (7 sets, daily range): BP systolic 92–158; BP diastolic 54–90; PULSE 74–152; RESP 18–28; TEMP 36.4–40.1; O2SAT 4–99; BMI 26.2
--- NOTE | ~2022-03-17 | XR_ITS ---
EXAMINATION: PORTABLE CHEST 1 VIEW CLINICAL INFORMATION: ng placement . COMPARISON: Chest x-ray today. TECHNIQUE: Portable frontal view of the chest was obtained. FINDINGS: Lungs remain hypoexpanded. There has been interval repositioning of the nasogastric tube slightly withdrawn but still with the tip and side-port in the stomach which is decompressed. Chronic appearing reticular markings on the left. Multiple chronic left-sided rib fractures and healed scapular fracture again noted. No focal infiltrate, effusion, edema, or pneumothorax XR/XR chest 1V IMPRESSION: Nasogastric tube slightly withdrawn but still with the tip and side-port in the stomach.
--- NOTE | ~2022-03-17 | XR_ITS ---
EXAMINATION: XR CHEST CLINICAL INFORMATION: NG tube placement COMPARISON: None TECHNIQUE: Frontal view of the chest was obtained. 5:44 PM FINDINGS: Nasogastric tube tip at the diaphragm. Sidehole in the distal thoracic esophagus. Catheter can be advanced 10 cm. No significant abnormality is noted involving the heart, lungs, mediastinum, bony thorax or soft tissues. XR/XR chest 1V IMPRESSION: 1. Nasogastric tube tip at the diaphragm. Catheter can be advanced 10 cm. 2. No acute abnormality of chest. This critical result was discussed with Dr. Gilliam on 03/17/2022, 6:20 PM and it was ascertained that the content and urgency of the report was understood at the time of direct communication.
--- NOTE | ~2022-03-17 | XR_ITS ---
EXAMINATION: XR CHEST CLINICAL INFORMATION: NG tube COMPARISON: None TECHNIQUE: Frontal portable view of the chest was obtained. 1940 hours FINDINGS: Nasogastric tube passes down into the stomach with the end and side hole within the stomach. No significant abnormality is noted involving the heart, lungs, mediastinum, bony thorax or soft tissues. Surgical clips right upper quadrant of abdomen. XR/XR chest 1V IMPRESSION: 1. Nasogastric tube in stomach. 2. No acute abnormality of chest.
--- NOTE | ~2022-03-17 | CT_ITS ---
EXAMINATION: CT ABDOMEN AND PELVIS WITH CONTRAST CLINICAL INFORMATION: Right-sided abdominal pain. COMPARISON: Multiple priors with the last CT abdomen and pelvis CTA of 11/23/2021. TECHNIQUE: Multidetector volumetric images were obtained from the superior aspect of the liver through the pubic symphysis following administration 85 mL of Omnipaque 350 intravenous contrast. Sagittal and coronal reformatted images were obtained on the technologist's workstation. Oral contrast: No This CT examination was performed using dose optimization techniques as appropriate, variously including the following: *Automated exposure control *Adjustment of mA and/or kV according to patient size (this includes techniques or standardized protocols for targeted exams where dose is matched to indication/reason for exam; i.e. extremities or head) *Use of iterative reconstruction technique DLP: 628 mGy-cm FINDINGS: LUNG BASES: Mild bronchial thickening is noted. The lung bases are otherwise unremarkable. No pleural or pericardial effusion. LIVER, GALLBLADDER, AND BILIARY TREE: The liver is normal in size, shape, and attenuation. No focal hepatic lesion or biliary ductal dilatation is present. The gallbladder is surgically absent. Common bile duct is upper limits of normal measuring 0.7 cm in diameter, stable finding. No filling defect is noted in the common bile duct. PANCREAS: Severe fatty atrophy of the pancreatic head is again noted. No focal pancreatic mass is demonstrated. No peripancreatic stranding or fluid. SPLEEN: Unremarkable ADRENAL GLANDS: Unremarkable KIDNEYS AND URETERS: The kidneys are normal in size, shape, and attenuation. No hydronephrosis, hydroureter, or calculi seen. No perinephric stranding. A 3.9 cm cortical cyst is a stable finding when compared to previous CT of 10/21/2021; no further imaging followup of this finding is recommended. BLADDER: Distended and therefore not optimally evaluated. No evidence of radiopaque calculi. GASTROINTESTINAL TRACT: The stomach is mildly distended with fluid. Multiple proximal and mid small bowel loops are fluid-filled with a maximum diameter measuring up to 3 cm. The transition zone is noted in the right upper pelvis (series 3 images 63, 64/100. The small bowel loops distal to these levels are decompressed. Somewhat ovoid dense material is noted within the lumen of small bowel at the transition point, proximal to which the small bowel loops are mildly dilated and fluid filled (series 5 image 35, series 3 image 64), measuring 1.5 x 2.0 cm. Terminal ileum is decompressed. An appendix is normal. The ascending colon is normal in caliber containing air and fecal material. Mid to distal transverse colon, descending colon and rectosigmoid colon are decompressed. No evidence of colonic wall thickening or pericolonic fat stranding. No evidence of intestinal pneumatosis. PERITONEAL CAVITY: There is no evidence of free intraperitoneal air. Small amount of free fluid is noted in the pelvis. ABDOMINAL WALL: No significant hernia is appreciated. LYMPH NODES: No evidence of pathologically enlarged lymph nodes. VASCULAR: The aortoiliac vessels are normal in caliber and well opacified. Celiac axis, SMA and STEVEN are normal in caliber and demonstrate normal enhancement. PELVIC VISCERA: Stable. The prostate measures 4.1 cm in transverse dimension. Normal seminal vesicles. OSSEOUS STRUCTURES: Stable. Deformity of the right acetabulum with heterotopic ossification in the vicinity and absence of femur are again noted. The findings are consistent with known history of right lower extremity amputation. No acute or suspicious osseous lesions are seen. Mild multilevel degenerative disc disease is noted in the lumbar spine. CT/CT abdomen pelvis w IV con IMPRESSION: 1. Findings consistent with distal small bowel obstruction with transition zone in the right upper pelvis. The dense ovoid material noted in the lumen of the small bowel at the transition point as described above is of unclear etiology, may represent nondigested ingested material. Small amount of free fluid in the pelvis. No evidence of intestinal pneumatosis. No evidence of colonic wall thickening or pericolonic fat stranding. 2. Normal appendix. 3. Mild bronchial thickening at the lung bases. Fleischner guidelines were followed.
--- NOTE | 2022-03-17 15:04 | ED.ABDPAIN ---
HPI - Abdominal Pain General Chief Complaint: Abdominal Pain Stated Complaint: RLQ PAIN PER EMS Time Seen by Provider: 03/17/22 14:51 Source: patient Mode of arrival: ambulatory History of Present Illness HPI narrative: 57-year-old male with past medical history of DVT, hepatitis-C, HIV, right leg amputation, presenting to the ED complaining of right lower quadrant abdominal pain, nausea, and vomiting since this morning. Denies known fever, chills, dysuria/hematuria, flank pain, diarrhea/constipation. Last BM this morning MD elicited complaint: abdominal pain Related Data Previous Rx's Medication Instructions Recorded oxycodone 5 mg tablet 5 mg PO BID PRN pain #10 tabs 07/18/20 cyclobenzaprine 10 mg tablet 10 mg PO TID PRN muscle spasm #10 09/05/20 tabs oxycodone 5 mg tablet 5 mg PO Q6H PRN Pain, Moderate #20 10/10/20 tabs apixaban 5 mg (74 tabs) tablets in 5 mg PO BID #74 ea 10/22/21 a dose pack ([employer] DVT-PE Treat 30D Start) oxycodone 5 mg tablet 5 mg PO TID PRN pain 3 days #9 tabs 10/22/21 Allergies Allergy/AdvReac Type Severity Reaction Status Date / Time Penicillins [PENICILLINS] Allergy Severe SWELLING Verified 12/20/21 15:42 shellfish derived Allergy Severe SWELLING Verified 12/20/21 15:42 [SHELLFISH DERIVED] penicillin G Allergy Unknown facial Verified 12/20/21 15:42 swelling CHOCOLATE Allergy Severe SWELLING Uncoded 08/08/20 10:37 Review of Systems Review of Systems Constitutional: No Fever, No Chills, No Fatigue, No Malaise ENT/Mouth: No Ear Pain, No Nasal Congestion, No sore throat, No Rhinorrhea, No Swallowing Difficulty Eyes: No Eye Pain, No Swelling, No Redness, No Vision Changes Cardiovascular: No Chest Pain, No SOB, No Edema, No Palpitations Respiratory: No Cough, No Sputum, No Dyspnea Gastrointestinal: + Nausea, + Vomiting, No Diarrhea, No Constipation, + Abdominal pain Genitourinary: No Dysuria, No Urinary Frequency, No Hematuria, No Urinary Incontinence/retention, No Urgency, No Flank Pain, No Urinary Flow Changes Musculoskeletal: No joint pain, No Myalgias, No Joint Swelling Skin: No Skin Lesions, No rash Neuro: No Weakness, No Dizziness, No Headache Yes all other systems are reviewed and are negative Constitutional: Reports as per [facility] Past Medical History Attestation statement: The following information was validated with the patient. Medical History Amputation of leg, right, traumatic DVT (deep venous thrombosis) Hepatitis C HIV (human immunodeficiency virus infection) Personal history of nicotine dependence Surgical History History of cochlear implant History of colonoscopy History of laparoscopic cholecystectomy History of liver biopsy History of right above knee amputation Social History Social History Alcohol intake: never Patient Tobacco Use Status: Never used Tobacco Cigarettes Per Day: 1 Years Smoked: (onset 16, 1/2-1ppd x 38yrs, 30pyh, quit 01/01/2020) Smoked in Last 30 Days: No Use of substances other than those prescribed or required for medical reasons: No Advance Directives: No Advance Directives Information Provided: No Gender identity: Male Physical Exam ED Vital Signs: Vital Signs - 24 hr 03/17/22 14:46 03/17/22 16:07 03/17/22 18:07 Temperature 97.5 F 99.0 F Pulse Rate 74 92 152 H Respiratory Rate 20 18 28 H Blood Pressure 107/76 147/87 H 128/90 H Pulse Oximetry 94 97 93 Oxygen Delivery Method Room Air Room Air Nasal Cannula Oxygen Flow Rate 4 03/17/22 19:28 03/17/22 20:15 03/17/22 21:03 Temperature 104.2 F H 103.4 F H Pulse Rate 137 H 128 H 126 H Respiratory Rate 28 H 21 H 22 H Blood Pressure 118/85 92/54 L Pulse Oximetry 95 4 L Oxygen Delivery Method Nasal Cannula Nasal Cannula Oxygen Flow Rate 4 BMI result Body Mass Index 26.2 Const General: cooperative, healthy appearing and no acute distress Orientation/consciousness: patient oriented x3 Limitations: no limitations HENMT Head: Yes normal to inspection and Yes atraumatic Ears: hearing grossly normal bilaterally General nose exam: Normal external nose present Face and sinus: Yes normal facial exam Eyes General: appearance normal, both eyes and all related structures EOM: EOMs intact bilaterally Neck Neck: Yes normal visual inspection and Yes no meningeal signs Resp Effort & Inspection: normal respiratory effort and no respiratory distress Auscultation: clear to auscultation bilaterally Cardio Rate: regular rate Heart sounds: S1 normal heart sound present and S2 normal heart sound present GI Other: Old surgical scars noted Inspection: Yes normal to inspection Palpation (GI): Soft to palpation, Tenderness to palpation present (GI) (Diffusely > RLQ) with no rebound tenderness, no guarding and not rigid Skin Rashes: no rashes Wounds: no wounds Neuro General: patient oriented x3, tone normal and no meningeal signs Gait exam (Neuro): Normal gait present Extrem General: Yes normal to inspection Procedures Procedure Narrative Procedure Narrative: NG tube placement 1st--14 gauge placed not great output, bubbles heard on placement confirmation 2nd--18 gauge placed No complications Good output Course Course Course Narrative: -1553--mild leukocytosis of 11.6 likely reactive from nausea/vomiting and pain. -Acute on chronically elevated BUN likely from dehydration. Chronically elevated alk-phos. Labs otherwise reassuring 1734--CT abdomen pelvis w IV con IMPRESSION: 1. Findings consistent with distal small bowel obstruction with transition zone in the right upper pelvis. The dense ovoid material noted in the lumen of the small bowel at the transition point as described above is of unclear etiology, may represent nondigested ingested material. Small amount of free fluid in the pelvis. No evidence of intestinal pneumatosis. No evidence of colonic wall thickening or pericolonic fat stranding. 2. Normal appendix. 3. Mild bronchial thickening at the lung bases. ? Fleischner guidelines were followed. >> NG tube placed, consulted general surgeon, Dr. Guerrero > Dr. Guerrero recommended medicine admit -1750--after NG tube placement patient very tachycardic in 150s, sinus tach on EKG, desatting, concern for aspiration pneumonia > lactic/blood cultures, IV cefepime, and IV metoprolol ordered -heart rate mildly improved to 120s after Lopressor. Plan to admit for further management XR chest 1V IMPRESSION: 1.? Nasogastric tube tip at the diaphragm. Catheter can be advanced 10 cm. 2.? No acute abnormality of chest. >?NG tube adjusted, will obtain repeat XR -1705--lactic acid elevated to 2.9 likely from persistent nausea/ vomiting & dehydration -patient febrile to 104.2 rectally IV Toradol and rectal Tylenol ordered. Will re-consult Surgery -Dr. Guerrero evaluated patient in the ED, recommended replacing NG tube with larger tube > will place 18g -new NG tube with good output Medications Administered Discontinued Medications Generic Name Dose Route Start Last Admin Trade Name Freq PRN Reason Stop Dose Admin Acetaminophen 650 mg 03/17/22 19:33 03/17/22 19:46 Acetaminophen Supp 650 Mg Supp.Rect CO 03/17/22 19:34 650 mg ONCE ONE Administration Diphenhydramine HCl 12.5 mg 03/17/22 16:39 03/17/22 16:44 Diphenhydramine Hcl 50 Mg/Ml Vial IVPUSH 03/17/22 16:40 12.5 mg ONCE ONE Administration Sodium Chloride 1,000 mls @ 999 mls/hr 03/17/22 15:00 03/17/22 19:31 Ns IV 03/17/22 16:00 Infused .Q1H1M ANTWAN Infusion Lactated Ringer's 1,000 mls @ 999 mls/hr 03/17/22 16:00 03/17/22 19:31 Lr IV 03/17/22 17:00 Infused .Q1H1M ANTWAN Infusion Cefepime HCl 2 gm/ Sodium 50 mls @ 100 mls/hr 03/17/22 17:48 03/17/22 19:31 Chloride IV 03/17/22 18:17 Infused ONCE ONE Infusion Iohexol 85 ml 03/17/22 16:03 03/17/22 16:04 Iohexol 350 Mg/Ml 100 Ml Infus..Btl IV 03/17/22 16:04 85 ml ONCE ONE Administration Ketorolac Tromethamine 15 mg 03/17/22 19:31 03/17/22 19:46 Ketorolac Tromethamine 15 Mg/Ml Vial IVPUSH 03/17/22 19:32 15 mg ONCE ONE Administration Levalbuterol HCl 1.25 mg 03/17/22 20:10 03/17/22 20:13 Levalbuterol Hcl 1.25 Mg/0.5 Ml Vial.Neb INHALE 03/17/22 20:11 1.25 mg ONCE ONE Administration Lidocaine HCl 1 appl 03/17/22 17:14 03/17/22 17:21 Lidocaine Hcl 4 % Avnceh-F-Axd 4 Ml TOPICAL 03/17/22 17:15 1 appl ONCE ONE Administration Metoclopramide HCl 10 mg 03/17/22 16:39 03/17/22 16:44 Metoclopramide Hcl 10 Mg/2 Ml Vial IVPUSH 03/17/22 16:40 10 mg ONCE ONE Administration Metoprolol Tartrate 5 mg 03/17/22 17:48 03/17/22 18:07 Metoprolol Tartrate 5 Mg/5 Ml Vial IVPUSH 03/17/22 17:49 5 mg ONCE ONE Administration Morphine Sulfate 4 mg 03/17/22 14:59 03/17/22 15:25 Morphine Sulfate 4 Mg/Ml Cartridge IVPUSH 03/17/22 15:00 4 mg ONCE ONE Administration Protocol Morphine Sulfate 2 mg 03/17/22 19:53 03/17/22 20:00 Morphine Sulfate 2 Mg/Ml Cartridge IVPUSH 03/17/22 19:54 2 mg ONCE ONE Administration Protocol Ondansetron HCl 4 mg 03/17/22 14:59 03/17/22 15:25 Ondansetron Hcl 4 Mg/2 Ml Vial IVPUSH 03/17/22 15:00 4 mg ONCE ONE Administration Ondansetron HCl 4 mg 03/17/22 17:14 03/17/22 17:21 Ondansetron Hcl 4 Mg/2 Ml Vial IVPUSH 03/17/22 17:15 4 mg ONCE ONE Administration MDM - Abdominal Pain MDM Narrative Medical decision making narrative: 57-year-old male with past medical history of DVT, hepatitis-C, HIV, right leg amputation, presenting to the ED complaining of right lower quadrant abdominal pain, nausea, and vomiting since this morning. On exam vital signs stable, appears in pain, NAD, abdomen soft diffusely tender to palpation greatest in the right lower quadrant, no rebound or guarding. Concern for appendicitis vs diverticulitis vs renal stone. Lower suspicion for cholecystitis/lithiasis or pancreatitis Plan: Labs, UA, CT abdomen/pelvis, IVF, pain medication ordered Differential Diagnosis Differential diagnosis: Likely abdominal pain, acute appendicitis, diverticulitis, gastroenteritis, gastritis, pancreatitis and renal colic Medical Records Attestation: I reviewed the patient's medical records. Lab Data Attestation: I reviewed the patient's lab results. Result diagrams: 03/17/22 15:20 03/17/22 15:20 Labs: Lab Results 03/17/22 03/17/22 03/17/22 Range/Units 15:20 15:20 17:53 WBC 11.6 H (4.8-10.8) X10*3/uL RBC 5.41 (4.60-5.80) X10*6/uL Hgb 15.5 (14.0-18.0) g/dl Hct 47.2 D (42.0-52.0) % MCV 87.2 (80.0-98.0) fL MCH 28.7 (27.0-33.0) pg MCHC 32.8 (31.0-36.0) g/dl RDW 12.6 (11.0-16.0) % Plt Count 300 (160-400) X10*3/uL MPV 9.8 (9.4-12.4) fL Immature Gran % (Auto) 0.3 (0.0-0.4) % Neut % (Auto) 88.5 H (45-73) % Lymph % (Auto) 7.8 L (20-40) % [place] % (Auto) 2.4 (2-11) % Eos % (Auto) 0.6 (0-4) % Baso % (Auto) 0.4 (0-2) % Lymph # (Auto) 0.9 L (1.2-4.9) X10*3/uL [place] # (Auto) 0.3 (0.1-1.2) X10*3/uL Eos # (Auto) 0.1 (0.0-0.4) X10*3/uL Baso # (Auto) 0.1 (0.0-0.2) X10*3/uL Abs Immat Gran (auto) 0.03 (0.00-0.03) X10*3/uL Absolute Neuts (auto) 10.3 H (2.0-8.3) x10*3/uL Absolute Nucleated RBC 0.000 (0.0-0.012) X10*3/uL Nucleated RBC % (auto) 0.0 (0.0-0.2) /100WBC Sodium 141 (135-145) mmol/L Potassium 4.2 (3.3-5.1) mmol/L Chloride 104 (96-108) mmol/L Carbon Dioxide 26 (22-29) mmol/L Anion Gap 15 (12-20) BUN 23 H (9-16) mg/dL Creatinine 1.22 (0.5-1.4) mg/dL Estim Creat Clear Calc 61.7 Estimated GFR > 60 Random Glucose 130 H (60-115) mg/dL Lactic Acid (0.5-2.0) mmol/L Calcium 9.9 D (8.4-10.2) mg/dL Magnesium 2.0 (1.6-2.6) mg/dL Total Bilirubin 0.8 (0.0-1.0) mg/dL Direct Bilirubin 0.2 (0.0-0.5) mg/dL AST 27 (5-37) U/L ALT 16 (0-40) U/L Alkaline Phosphatase 191 H (39-117) U/L Lactate Dehydrogenase 228 (118-273) U/L Total Protein 8.4 H (6.5-8.0) g/dL Albumin 4.8 (3.5-5.0) g/dL Lipase 10 (8-78) U/L COVID-19 (FRANCES) Negative (Negative) COVID-19 Clin Com See Note 03/17/22 Range/Units 17:58 WBC (4.8-10.8) X10*3/uL RBC (4.60-5.80) X10*6/uL Hgb (14.0-18.0) g/dl Hct (42.0-52.0) % MCV (80.0-98.0) fL MCH (27.0-33.0) pg MCHC (31.0-36.0) g/dl RDW (11.0-16.0) % Plt Count (160-400) X10*3/uL MPV (9.4-12.4) fL Immature Gran % (Auto) (0.0-0.4) % Neut % (Auto) (45-73) % Lymph % (Auto) (20-40) % [place] % (Auto) (2-11) % Eos % (Auto) (0-4) % Baso % (Auto) (0-2) % Lymph # (Auto) (1.2-4.9) X10*3/uL [place] # (Auto) (0.1-1.2) X10*3/uL Eos # (Auto) (0.0-0.4) X10*3/uL Baso # (Auto) (0.0-0.2) X10*3/uL Abs Immat Gran (auto) (0.00-0.03) X10*3/uL Absolute Neuts (auto) (2.0-8.3) x10*3/uL Absolute Nucleated RBC (0.0-0.012) X10*3/uL Nucleated RBC % (auto) (0.0-0.2) /100WBC Sodium (135-145) mmol/L Potassium (3.3-5.1) mmol/L Chloride (96-108) mmol/L Carbon Dioxide (22-29) mmol/L Anion Gap (12-20) BUN (9-16) mg/dL Creatinine (0.5-1.4) mg/dL Estim Creat Clear Calc Estimated GFR Random Glucose (60-115) mg/dL Lactic Acid 2.9 H* (0.5-2.0) mmol/L Calcium (8.4-10.2) mg/dL Magnesium (1.6-2.6) mg/dL Total Bilirubin (0.0-1.0) mg/dL Direct Bilirubin (0.0-0.5) mg/dL AST (5-37) U/L ALT (0-40) U/L Alkaline Phosphatase (39-117) U/L Lactate Dehydrogenase (118-273) U/L Total Protein (6.5-8.0) g/dL Albumin (3.5-5.0) g/dL Lipase (8-78) U/L COVID-19 ([facility]) (Negative) COVID-19 Clin Com ECG Data Attestation: I personally reviewed and interpreted this ECG as follows: ECG interpretation date: 03/17/22 ECG interpretation time: 17:40 Interpretation: EKG sinus tachycardia with premature atrial complexes at a rate of 142. Artifact present. No STEMI. QTC 427 Critical Care Time Critical Care Time Critical Care Time: Yes Total Critical Care Time: 50 Attestation: I have personally provided critical care time exclusive of time spent on separately billable procedures. Time includes review of lab data, radiology results, discussion with consultants, and monitoring for potential decompensation. Intervention performed as documented. Discharge Plan Discharge Clinical Impression: SBO (small bowel obstruction), Aspiration pneumonia Patient Disposition: Admitted As Inpatient
[2022-03-17 15:24] LABS: MANUAL DIFF FLAG NO
[2022-03-17] MEDS: 0.9 % Sodium Chloride 1,000 ML 999 ML IV (15:24)
[2022-03-17 15:25] LABS: Basophils Absolute Auto 0.1 X10*3/uL (0.0-0.2); Basophils Percent Auto 0.4 % (0-2); Eosinophils Absolute Auto 0.1 X10*3/uL (0.0-0.4); Eosinophils Percent Auto 0.6 % (0-4); Hematocrit 47.2 % (42.0-52.0); Hemoglobin 15.5 g/dl (14.0-18.0); Imm Gran Abs Auto 0.03 X10*3/uL (0.00-0.03); Imm Gran Pct Auto 0.3 % (0.0-0.4); Lymphocytes Absolute Auto 0.9 X10*3/uL (1.2-4.9); Lymphocytes Percent Auto 7.8 % (20-40); Mean Corpuscular HGB Conc 32.8 g/dl (31.0-36.0); Mean Corpuscular Hemoglobin 28.7 pg (27.0-33.0); Mean Corpuscular Volume 87.2 fL (80.0-98.0); Mean Platelet Volume 9.8 fL (9.4-12.4); Monocytes Absolute Auto 0.3 X10*3/uL (0.1-1.2); Monocytes Percent Auto 2.4 % (2-11); Neutrophils Absolute Auto 10.3 x10*3/uL (2.0-8.3); Neutrophils Percent Auto 88.5 % (45-73); Platelet Count 300 X10*3/uL (160-400); Red Blood Count 5.41 X10*6/uL (4.60-5.80); Red Cell Distribution Width 12.6 % (11.0-16.0); White Blood Count 11.6 X10*3/uL (4.8-10.8)
[2022-03-17] MEDS: ondansetron HCL 4 MG/2 ML VIAL IVPUSH ×2 (15:25→17:21)
[2022-03-17] MEDS: Morphine Sulfate 4 MG/ML CARTRIDGE IVPUSH (15:25)
[2022-03-17 15:47] LABS: Alanine Aminotransferase 16 U/L (0-40); Albumin Level 4.8 g/dL (3.5-5.0); Alkaline Phosphatase 191 U/L (39-117); Anion Gap 15 (12-20); Aspartate Amino Transferase 27 U/L (5-37); Bilirubin Direct 0.2 mg/dL (0.0-0.5); Bilirubin Total 0.8 mg/dL (0.0-1.0); Blood Urea Nitrogen 23 mg/dL (9-16); Calcium 9.9 mg/dL (8.4-10.2); Carbon Dioxide 26 mmol/L (22-29); Chloride 104 mmol/L (96-108); Creatinine Clr Calc Pharmacy 61.7; Estimated Glomerular Filt Rate > 60; Glucose Random 130 mg/dL (60-115); Lipase 10 U/L (8-78); Potassium 4.2 mmol/L (3.3-5.1); Sodium 141 mmol/L (135-145); Total Protein 8.4 g/dL (6.5-8.0)
[2022-03-17] MEDS: iohexoL 350 MG/ML 100 ML INFUS..BTL 85 ML IV (16:04)
[2022-03-17] MEDS: Lactated Ringers 1,000 ML 999 ML IV ×2 (16:27→22:21)
[2022-03-17] MEDS: diphenhydrAMINE HCL 50 MG/ML VIAL 12.5 MG IVPUSH (16:44)
[2022-03-17] MEDS: Metoclopramide HCl 10 MG/2 ML VIAL IVPUSH (16:44)
[2022-03-17] MEDS: Lidocaine HCl 4 % Laryng-O-Jet 4 ML 1 APPL TOPICAL (17:21)
--- NOTE | 2022-03-17 17:39 | ECG_ITS ---
Test Reason : DYSPNEA/TACHY Blood Pressure : / mmHG Vent. Rate : 142 BPM Atrial Rate : 142 BPM P-R Int : 126 ms QRS Dur : 070 ms QT Int : 278 ms P-R-T Axes : 054 259 037 degrees QTc Int : 427 ms Sinus tachycardia with Premature atrial complexes with Aberrant conduction Right superior axis deviation Abnormal ECG When compared with ECG of 21-OCT-2021 19:54, Aberrant conduction is now Present Vent. rate has increased BY 77 BPM QRS axis Shifted left Referred By: Marleni Turner Electronically Signed By:MICHAEL OTTO MD
--- NOTE | 2022-03-17 18:05 | P.CONGS_ITS ---
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 I was asked to evaluate the pt due to poor NG function & vomiting around the NG tube, along with fever of 104F & continued abd pain. The pt reports the pain started yesterday & he had a BM, but then began vomiting. He notes he's comp liant with his HIV meds & my counts are good, even my T cells. Review of Systems Review of Systems: Yes all other systems are reviewed and are negative Constitutional: Constitutional: Reports as per [facility] Past Medical History Medical History Amputation of leg, right, traumatic DVT (deep venous thrombosis) Hepatitis C HIV (human immunodeficiency virus infection) Personal history of nicotine dependence Surgical History Surgical History History of cochlear implant History of colonoscopy History of laparoscopic cholecystectomy History of liver biopsy History of right above knee amputation Social History Social History Alcohol intake: never Patient Tobacco Use Status: Never used Tobacco Cigarettes Per Day: 1 Years Smoked: (onset 16, 1/2-1ppd x 38yrs, 30pyh, quit 01/01/2020) Smoked in Last 30 Days: No Use of substances other than those prescribed or required for medical reasons: No Advance Directives: No Advance Directives Information Provided: No Gender identity: Male Meds Allergies Allergy/AdvReac Type Severity Reaction Status Date / Time Penicillins [PENICILLINS] Allergy Severe SWELLING Verified 12/20/21 15:42 shellfish derived Allergy Severe SWELLING Verified 12/20/21 15:42 [SHELLFISH DERIVED] penicillin G Allergy Unknown facial Verified 12/20/21 15:42 swelling CHOCOLATE Allergy Severe SWELLING Uncoded 08/08/20 10:37 Active Medications: Current Medications Cefepime HCl 2 gm/ Sodium (Chloride) 50 mls @ 100 mls/hr IV ONCE ONE Stop: 03/17/22 18:17 Pharmacy Consult (Consult Rx Perform Med Rec) 1 each MISCELLANE ONCE PRN PRN Reason: Consult order Physical Exam Vital Signs: Vital Signs: Last Vital Signs Temp 99.0 F 03/17/22 16:07 Pulse 92 03/17/22 16:07 Resp 18 03/17/22 16:07 BP 147/87 H 03/17/22 16:07 Pulse Ox 97 03/17/22 16:07 O2 Del Method 03/17/22 16:07 BMI result Body Mass Index 26.2 The patient is non-toxic & in good spirits NC/AT, PERRLA, EOMI Mood, affect & judgment all appear appropriate Sclera anicteric conjunctiva pink and moist Oropharynx is clear with no aphthous ulcers, Mallampati class 4, mucous membranes moist Neck is supple with no masses, adenopathy or bruits Thyroid is nontender and free of dominant masses Heart is regular, normal S1-S2 no rubs or murmurs Lungs are clear and equal anteriorly with no audible wheezing, rubs or dullness to percussion Abdomen is overweight with no demonstrable hernias. A well-healed lower abd midline incision is present. RLQ tenderness with no R/R/G or peritoneal sign to percussion is noted. No HSM, rebound, rigidity, guarding, masses or bruits are present. Rectal exam is deferred Skin has good turgor and is free of rashes RIGHT lower Extremities is absent; left is free of cyanosis clubbing edema Results Labs Result diagrams: 03/17/22 15:20 03/17/22 15:20 Labs: Abnormal lab results 03/17/22 03/17/22 Range/Units 15:20 15:20 WBC 11.6 H (4.8-10.8) X10*3/uL Neut % (Auto) 88.5 H (45-73) % Lymph % (Auto) 7.8 L (20-40) % Lymph # (Auto) 0.9 L (1.2-4.9) X10*3/uL Absolute Neuts (auto) 10.3 H (2.0-8.3) x10*3/uL BUN 23 H (9-16) mg/dL Random Glucose 130 H (60-115) mg/dL Alkaline Phosphatase 191 H (39-117) U/L Total Protein 8.4 H (6.5-8.0) g/dL Short CBC 03/17/22 Range/Units 15:20 WBC 11.6 H (4.8-10.8) X10*3/uL Hgb 15.5 (14.0-18.0) g/dl Hct 47.2 D (42.0-52.0) % Plt Count 300 (160-400) X10*3/uL BMP 03/17/22 15:20 Sodium 141 Potassium 4.2 Chloride 104 Carbon Dioxide 26 BUN 23 H Creatinine 1.22 Calcium 9.9 D Liver Function 03/17/22 Range/Units 15:20 Total Bilirubin 0.8 (0.0-1.0) mg/dL Direct Bilirubin 0.2 (0.0-0.5) mg/dL AST 27 (5-37) U/L ALT 16 (0-40) U/L Alkaline Phosphatase 191 H (39-117) U/L Albumin 4.8 (3.5-5.0) g/dL Lactic acid is elevated at 2.9; repeat after 2L IVF is pending Imaging Chest x-ray: report reviewed and image reviewed Abdomen CT scan report/results: report reviewed and image reviewed CT scan - pelvis: report reviewed and image reviewed Assessment and Plan (1) SBO (small bowel obstruction): Status: Acute (2) Aspiration pneumonia: Status: Acute (3) PAD (peripheral artery disease): Status: Acute (4) Acute deep vein thrombosis (DVT) of right femoral vein: Status: Acute (5) Personal history of nicotine dependence: Status: Acute (6) HIV (human immunodeficiency virus infection): Status: Acute (7) Hepatitis C: Status: Acute (8) Depression: Status: Acute (9) Crohn's disease: Status: Acute (10) Substance abuse: Status: Acute (11) Amputation of leg, right, traumatic: Status: Acute Plan New 18Fr NG placed with improved output. Continue NPO, NG to low intermittent suction Pt dehydrated; continue aggressive IVF & resuscitation May need to transition to Lovenox re: DVT suspect aspiration, given approx 500cc reported by ER staff around NG & only 300cc via NG. Abx added Trend labs & exam. There's a Dx of Crohn's in his EMR; will need more hx re: presentation. Procedures Date of Service Date of Service: 03/17/22
[2022-03-17] MEDS: Metoprolol Tartrate 5 MG/5 ML VIAL IVPUSH (18:07)
[2022-03-17] MEDS: cefEPime HCl 2 GM in 0.9 % Sodium Chloride 50 ML IV (18:07)
[2022-03-17 18:19] LABS: COVID-19 Test Negative (Negative); IDNOW Serial# 55D5AD1C
[2022-03-17 18:46] LABS: Lactic Acid 2.9 mmol/L (0.5-2.0)
[2022-03-17] MEDS: Ketorolac Tromethamine 15 MG/ML VIAL IVPUSH ×2 (19:46→21:50)
[2022-03-17] MEDS: Acetaminophen Supp 650 MG SUPP.RECT PR (19:46)
[2022-03-17] MEDS: Morphine Sulfate 2 MG/ML CARTRIDGE IVPUSH (20:00)
[2022-03-17 20:02] LABS: Reflex Lactate? Lactic Acid Added
[2022-03-17 20:25] LABS: Lactate Dehydrogenase 228 U/L (118-273)
--- NOTE | 2022-03-17 21:26 | PM.IMHP ---
History of Present Illness Date of Service: 03/17/22 Chief Complaint: Abdominal pain This is a 57-year-old male with past medical history of HIV, hep C, Crohn's disease, history of substance abuse, DVT, traumatic amputation of right leg, of abdominal pain and distension. Patient reports the pain started the day prior, pain is 10/10, associated with nausea vomiting, worse in the lower abdomen, nonradiating. Constant. Last bowel movement once a day prior, he is not passing gas. Denies any fever chills, no chest pain, no shortness of breath. No urinary symptoms and no lower extremity edema. Patient has history of appendectomy. On arrival to the ED patient hemodynamically stable with no significant abnormal vitals. Labs are significant for WBC count of 11.6 lactic acid of 2.9 improved after IV fluids, otherwise unremarkable Abdomen pelvic CT shows distal small-bowel obstruction with transition zone in the right upper pelvis, also there was dense 0 view admit to really noted in the lumen of the small bowel While patient was receiving the NG tube to decompress for small-bowel obstruction he has significant vomiting, became hypoxic went into respiratory distress. Likely secondary to aspiration. Patient's heart rate increased to the 130s, became tachypneic, patient was placed on nasal cannula with improvement in his symptoms. Chest x-ray showed no acute abnormality Despite the NG tube placement patient continued to have vomiting, general surgery was called, came to evaluate patient, recommended changing the NG tube 12 bigger tube, the NG tube was changed with improvement patient's symptoms Review of Systems Review of Systems: Yes all other systems are reviewed and are negative [facility] Medical History Acute deep vein thrombosis (DVT) of right femoral vein Amputation of leg, right, traumatic Ankle fracture, left Closed fracture of phalanx of second toe Crohn's disease Depression DVT (deep venous thrombosis) Fracture of left great toe Hepatitis C HIV (human immunodeficiency virus infection) PAD (peripheral artery disease) Personal history of nicotine dependence Substance abuse Family History (Updated 03/18/22 @ 05:14 by Tarik Carlton MD) Other No family history of coronary artery disease Surgical History History of cochlear implant History of colonoscopy History of laparoscopic cholecystectomy History of liver biopsy History of right above knee amputation Social History Household Members: Spouse and Family Housing: Apartment Alcohol intake: never Patient Tobacco Use Status: Never used Tobacco Cigarettes Per Day: 1 Years Smoked: (onset 16, 1/2-1ppd x 38yrs, 30pyh, quit 01/01/2020) Smoked in Last 30 Days: No Use of substances other than those prescribed or required for medical reasons: Yes Substance Use Type: Marijuana Substance Use Frequency: Occasionally Last Used Substance: Days (ago) Currently Displaying Signs/Symptoms of Drug Intoxication Withdrawal: No Any prior treatment program specific to substance use: No Have you been hit, kicked, punched, or otherwise hurt by someone within the past year? If so, by whom?: No Do you feel safe in your current relationship?: No Is there a partner from a previous relationship who is making you feel unsafe now?: No Are you made to feel afraid or neglected: No Advance Directives: No Advance Directives Information Provided: No Do you have thoughts of harming others: None Do you have a plan to hurt others: No Plan Recently lost weight without trying: No How much weight loss: Not applicable Eating poorly because of decreased appetite: No Nutrition screen score: 0 Gender identity: Male Meds Allergies Allergy/AdvReac Type Severity Reaction Status Date / Time Penicillins [PENICILLINS] Allergy Severe SWELLING Verified 12/20/21 15:42 shellfish derived Allergy Severe SWELLING Verified 12/20/21 15:42 [SHELLFISH DERIVED] penicillin G Allergy Unknown facial Verified 12/20/21 15:42 swelling CHOCOLATE Allergy Severe SWELLING Uncoded 08/08/20 10:37 Active Medications: Current Medications Lactated Ringer's (Lr) 1,000 mls @ 999 mls/hr IV .Q1H1M ANTWAN Stop: 03/17/22 22:15 Pharmacy Consult (Consult Rx Perform Med Rec) 1 each MISCELLANE ONCE PRN PRN Reason: Consult order Physical Exam Vital Signs and Narrative: Vital Signs: Last Vital Signs Temp 103.4 F H 03/17/22 21:03 Pulse 126 H 03/17/22 21:03 Resp 22 H 03/17/22 21:03 BP 92/54 L 03/17/22 21:03 Pulse Ox 4 L 03/17/22 21:03 O2 Del Method 11/20/22 21:03 O2 Flow Rate 4 03/17/22 19:28 BMI result Body Mass Index 26.2 Const: General: cooperative and no acute distress Orientation/consciousness: patient oriented x3 Eyes: General: appearance normal, both eyes and all related structures Resp: Effort & Inspection: normal respiratory effort Auscultation: clear to auscultation bilaterally Cardio: Rate: regular rate Rhythm: regular rhythm GI: Other: Abdomen is distended, NG tube in place, hyperactive bowel sounds Skin: General skin exam: no rashes or lesions noted Neuro: General: patient oriented x3 Cognition (Neuro): normal cognition Extrem: General: Yes normal to inspection and Yes no pedal edema Results Labs CBC and Chem 7: 03/17/22 15:20 03/17/22 15:20 Labs: Laboratory Results - last 24 hr 03/17/22 03/17/22 03/17/22 15:20 15:20 17:53 MCV 87.2 MCH 28.7 MCHC 32.8 RDW 12.6 Plt Count 300 MPV 9.8 Immature Gran % (Auto) 0.3 Neut % (Auto) 88.5 H Lymph % (Auto) 7.8 L [place] % (Auto) 2.4 Eos % (Auto) 0.6 Baso % (Auto) 0.4 Lymph # (Auto) 0.9 L [place] # (Auto) 0.3 Eos # (Auto) 0.1 Baso # (Auto) 0.1 Abs Immat Gran (auto) 0.03 Absolute Neuts (auto) 10.3 H Absolute Nucleated RBC 0.000 Nucleated RBC % (auto) 0.0 Anion Gap 15 Estim Creat Clear Calc 61.7 Estimated GFR > 60 Random Glucose 130 H Lactic Acid Calcium 9.9 D Magnesium 2.0 Total Bilirubin 0.8 Direct Bilirubin 0.2 AST 27 ALT 16 Alkaline Phosphatase 191 H Lactate Dehydrogenase 228 Total Protein 8.4 H Albumin 4.8 Lipase 10 COVID-19 (FRANCES) Negative COVID-19 Clin Com See Note 03/17/22 17:58 MCV MCH MCHC RDW Plt Count MPV Immature Gran % (Auto) Neut % (Auto) Lymph % (Auto) [place] % (Auto) Eos % (Auto) Baso % (Auto) Lymph # (Auto) [place] # (Auto) Eos # (Auto) Baso # (Auto) Abs Immat Gran (auto) Absolute Neuts (auto) Absolute Nucleated RBC Nucleated RBC % (auto) Anion Gap Estim Creat Clear Calc Estimated GFR Random Glucose Lactic Acid 2.9 H* Calcium Magnesium Total Bilirubin Direct Bilirubin AST ALT Alkaline Phosphatase Lactate Dehydrogenase Total Protein Albumin Lipase COVID-19 (FRANCES) COVID-19 Clin Com Imaging Radiologist's Impressions: Impressions Abdomen/Pelvis CT 03/17/22 16:05 IMPRESSION: 1. Findings consistent with distal small bowel obstruction with transition zone in the right upper pelvis. The dense ovoid material noted in the lumen of the small bowel at the transition point as described above is of unclear etiology, may represent nondigested ingested material. Small amount of free fluid in the pelvis. No evidence of intestinal pneumatosis. No evidence of colonic wall thickening or pericolonic fat stranding. 2. Normal appendix. 3. Mild bronchial thickening at the lung bases. Fleischner guidelines were followed. Chest X-Ray 03/17/22 17:50 IMPRESSION: 1. Nasogastric tube tip at the diaphragm. Catheter can be advanced 10 cm. 2. No acute abnormality of chest. This critical result was discussed with Dr. Gilliam on 03/17/2022, 6:20 PM and it was ascertained that the content and urgency of the report was understood at the time of direct communication. Chest X-Ray 03/17/22 19:42 IMPRESSION: 1. Nasogastric tube in stomach. 2. No acute abnormality of chest. Chest X-Ray 03/17/22 20:50 IMPRESSION: Nasogastric tube slightly withdrawn but still with the tip and side-port in the stomach. Assessment and Plan (1) SBO (small bowel obstruction): Status: Acute (2) Aspiration pneumonia: Qualifiers: Aspiration pneumonia type: due to gastric secretions Laterality: unspecified laterality Lung location: unspecified part of lung Qualified Code(s): J69.0 - Pneumonitis due to inhalation of food and vomit Status: Acute (3) Acute respiratory failure with hypoxia: Status: Acute (4) Lactic acidosis: Status: Acute Plan 57-year-old male with significant past medical history as mentioned above presents to the hospital complaints of abdominal pain found to have acute small-bowel obstruction # small-bowel obstruction - likely in the setting of prior gastrointestinal surgery - patient was evaluated by surgery, recommending decompression by NG tube - at this time will keep patient NPO - general surgery to follow # acute hypoxic respiratory failure - secondary to aspiration pneumonia - patient with evidence of aspiration after placement of NG tube - chest x-ray negative but may be lagging - continue O2 as required # aspiration pneumonia - secondary to NG tube placement and small-bowel obstruction - will treat with Levaquin given history of penicillin allergy = monitor respiratory status # lactic acidosis - likely secondary to small-bowel obstruction - no acute sepsis - trended down after IV fluids # history of HIV - pharmacy pending med review # DVT - hold Eliquis in anticipation of possible surgical intervention for small-bowel obstruction DVT prophylaxis: SCDs Given patient's small-bowel obstruction patient require minimum 2 night inpatient hospital stay for further management Quality Stroke Does the patient have a stroke diagnosis?: No VTE Prior VTE?: No VTE Risk Level:: Medical - moderate - high VTE Device Contraindication: N/A - Device Ordered VTE Drug Contraindication: Treatment Not Indicated
[2022-03-17] MEDS: Lactated Ringers 1,000 ML 100 ML IVCONT (23:22)
[2022-03-17] MEDS: 0.9 % Sodium Chloride Flush 3 ML SYRINGE IVFLUSH (23:23)
[2022-03-17 23:33] LABS: ~Lactic Acid-LAB USE ONLY 1.9 mmol/L (0.5-2.0)
[2022-03-18] VITALS (7 sets, daily range): BP systolic 100–144; BP diastolic 55–83; PULSE 81–98; RESP 17–20; TEMP 36.6–38.8; O2SAT 90–96
[2022-03-18] MEDS: Morphine Sulfate 2 MG/ML CARTRIDGE 4 MG IVPUSH ×3 (06:21→19:33)
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
[2022-03-18 10:04] LABS: MANUAL DIFF FLAG NO
[2022-03-18 10:05] LABS: Basophils Percent Auto 0.4 % (0-2); Eosinophils Percent Auto 0.2 % (0-4); Hematocrit 43.6 % (42.0-52.0); Imm Gran Abs Auto 0.02 X10*3/uL (0.00-0.03); Imm Gran Pct Auto 0.4 % (0.0-0.4); Lymphocytes Absolute Auto 0.8 X10*3/uL (1.2-4.9); Mean Corpuscular HGB Conc 32.1 g/dl (31.0-36.0); Mean Corpuscular Hemoglobin 28.3 pg (27.0-33.0); Mean Corpuscular Volume 88.1 fL (80.0-98.0); Mean Platelet Volume 9.9 fL (9.4-12.4); Monocytes Absolute Auto 0.8 X10*3/uL (0.1-1.2); Monocytes Percent Auto 14.2 % (2-11); Neutrophils Absolute Auto 3.9 x10*3/uL (2.0-8.3); Neutrophils Percent Auto 70.8 % (45-73); Platelet Count 231 X10*3/uL (160-400); Red Blood Count 4.95 X10*6/uL (4.60-5.80); Red Cell Distribution Width 13.2 % (11.0-16.0); White Blood Count 5.5 X10*3/uL (4.8-10.8)
--- NOTE | 2022-03-18 10:11 | PHA.MEDREC ---
Pharmacy Consult ? Medication Reconciliation Pharmacy has completed the medication reconciliation. Spoke with patient's Theresa. Reports patient does not take Aspirin. Chandrika Hernandez, PharmD
[2022-03-18] MEDS: Lactated Ringers 1,000 ML 100 ML IVCONT ×2 (10:16→21:54)
[2022-03-18] MEDS: levoFLOXacin/D5W 750 MG/150 ML PIGGYBACK 100 MG IV (10:17)
[2022-03-18 10:22] LABS: Anion Gap 15 (12-20); Blood Urea Nitrogen 33 mg/dL (9-16); Carbon Dioxide 27 mmol/L (22-29); Chloride 107 mmol/L (96-108); Creatinine Clr Calc Pharmacy 46.7; Estimated Glomerular Filt Rate 44; Glucose Random 107 mg/dL (60-115); Potassium 4.6 mmol/L (3.3-5.1); Sodium 144 mmol/L (135-145)
[2022-03-18 10:36] LABS: Calcium 8.9 mg/dL (8.4-10.2)
--- NOTE | 2022-03-18 11:15 | P.PNIM_ITS ---
Subjective Subjective Date of Service: 03/18/22 Interval History: No acute issues overnight. Pt complains of continued SOB and productive cough. Continued diffuse abdominal pain an distention. Pt denies passing gas or having a bowel movement. Denies F/C, palpitations, difficulty urinating. Review of Systems SOB Productive cough Diffuse abdominal pain Review of Systems: Yes all other systems are reviewed and are negative Physical Exam Vital Signs: Vital Signs: Last Vital Signs Temp 101.9 F H 03/18/22 07:51 Pulse 95 03/18/22 07:51 Resp 17 03/18/22 07:51 BP 100/63 03/18/22 07:51 Pulse Ox 90 L 03/18/22 07:51 O2 Del Method 03/18/22 07:51 O2 Flow Rate 2.0 03/18/22 07:51 BMI result Body Mass Index 26.2 Const: General: cooperative, no acute distress, alert and awake Orientation/consciousness: patient oriented x3 HEENT: Head: Yes normal to inspection, Yes normocephalic and Yes atraumatic Resp: Effort & Inspection: normal respiratory effort, able to speak in complete sentences and Actively coughing Quality: productive Auscultation: rales bilateral throughout Cardio: Jugular venous distension: no JVD Rate: regular rate Rhythm: regular rhythm GI: Inspection: Yes distended and Yes G-tube present Palpation (GI): Firmness to palpation present (GI) and Tenderness to palpation present (GI) (diffusely) Auscultation: Hyperactive bowel sounds present Neuro: General: patient oriented x3 and CN's II-XI intact bilaterally Psych: Mental Status: mental status grossly normal Speech and movement: Normal speech and movement present Thought process: Normal thought process present Thought content: Normal thought content present Insight: Good insight present (Psych) Judgement: Good judgement present (Psych) Objective Data Active Medications Acetaminophen (Acetaminophen 325 Mg Tablet) 650 mg PO Q6H PRN PRN Reason: Pain, Mild (Pain Scale 1-3) Lactated Ringer's (Lr) 1,000 mls @ 100 mls/hr IVCONT .Q10H [facility] Last Infusion: 03/18/22 10:24 Dose: 0 mls/hr Documented By: YANCY Levofloxacin (Levaquin) 750 mg in 150 mls @ 100 mls/hr IV Q24H [facility] Last Admin: 03/18/22 10:17 Dose: 100 mls/hr Documented By: YANCY Morphine Sulfate (Morphine Sulfate 2 Mg/Ml Cartridge) 4 mg IVPUSH Q4H PRN; Protocol PRN Reason: Pain, Severe (Pain Scale 7-10) Last Admin: 03/18/22 06:21 Dose: 4 mg Documented By: MADAN Ondansetron HCl (Ondansetron Hcl 4 Mg/2 Ml Vial) 4 mg IVPUSH Q8H PRN PRN Reason: Nausea and Vomiting Pharmacy Consult (Consult Rx Perform Med Rec) 1 each MISCELLANE ONCE PRN PRN Reason: Consult order Sodium Chloride (0.9 % Sodium Chloride Flush 3 Ml Syringe) 3 ml IVFLUSH QSHIFT [facility] Last Admin: 03/18/22 10:14 Dose: Not Given Documented By: YANCY Non-Admin Reason: IV Running Labs CBC & Chem 7: 03/18/22 09:49 03/18/22 09:49 Labs: Laboratory Results - last 24 hr 03/17/22 03/17/22 03/17/22 15:20 15:20 17:53 MCV 87.2 MCH 28.7 MCHC 32.8 RDW 12.6 Plt Count 300 MPV 9.8 Immature Gran % (Auto) 0.3 Neut % (Auto) 88.5 H Lymph % (Auto) 7.8 L [place] % (Auto) 2.4 Eos % (Auto) 0.6 Baso % (Auto) 0.4 Lymph # (Auto) 0.9 L [place] # (Auto) 0.3 Eos # (Auto) 0.1 Baso # (Auto) 0.1 Abs Immat Gran (auto) 0.03 Absolute Neuts (auto) 10.3 H Absolute Nucleated RBC 0.000 Nucleated RBC % (auto) 0.0 Anion Gap 15 Estim Creat Clear Calc 61.7 Estimated GFR > 60 Random Glucose 130 H Lactic Acid Lactic Acid F/U @ 2Hr Calcium 9.9 D Magnesium 2.0 Total Bilirubin 0.8 Direct Bilirubin 0.2 AST 27 ALT 16 Alkaline Phosphatase 191 H Lactate Dehydrogenase 228 Total Protein 8.4 H Albumin 4.8 Lipase 10 COVID-19 (FRANCES) Negative COVID-19 Clin Com See Note 03/17/22 03/17/22 03/18/22 17:58 23:11 09:49 MCV 88.1 MCH 28.3 MCHC 32.1 RDW 13.2 Plt Count 231 MPV 9.9 Immature Gran % (Auto) 0.4 Neut % (Auto) 70.8 Lymph % (Auto) 14.0 L [place] % (Auto) 14.2 H Eos % (Auto) 0.2 Baso % (Auto) 0.4 Lymph # (Auto) 0.8 L [place] # (Auto) 0.8 Eos # (Auto) 0.0 Baso # (Auto) 0.0 Abs Immat Gran (auto) 0.02 Absolute Neuts (auto) 3.9 Absolute Nucleated RBC 0.000 Nucleated RBC % (auto) 0.0 Anion Gap Estim Creat Clear Calc Estimated GFR Random Glucose Lactic Acid 2.9 H* Lactic Acid F/U @ 2Hr 1.9 Calcium Magnesium Total Bilirubin Direct Bilirubin AST ALT Alkaline Phosphatase Lactate Dehydrogenase Total Protein Albumin Lipase COVID-19 (FRANCES) COVID-19 [facility] Com 03/18/22 09:49 MCV MCH MCHC RDW Plt Count MPV Immature Gran % (Auto) Neut % (Auto) Lymph % (Auto) [place] % (Auto) Eos % (Auto) Baso % (Auto) Lymph # (Auto) [place] # (Auto) Eos # (Auto) Baso # (Auto) Abs Immat Gran (auto) Absolute Neuts (auto) Absolute Nucleated RBC Nucleated RBC % (auto) Anion Gap 15 Estim Creat Clear Calc 46.7 Estimated GFR 44 Random Glucose 107 Lactic Acid Lactic Acid F/U @ 2Hr Calcium 8.9 D Magnesium Total Bilirubin Direct Bilirubin AST ALT Alkaline Phosphatase Lactate Dehydrogenase Total Protein Albumin Lipase COVID-19 (FRANCES) COVID-19 Clin Com Assessment and Plan (1) SBO (small bowel obstruction): Status: Acute (2) Aspiration pneumonia: Status: Acute Plan Pt is a 57-year-old male with PMH significant for HIV, Hep C, Chron's disease, history of substance abuse, DVT, traumatic amputation of right leg, who presented to the hospital with complaints of abdominal pain and distention and N/V. CT revealed an acute small-bowel obstruction. Pt vomited with NG tube placement, became hypoxic and went into respiratory distress, likely secondary to aspiration. # small-bowel obstruction - likely in the setting of prior gastrointestinal surgery - patient was evaluated by surgery, recommending decompression by NG tube - pt continues to deny flatus or BM - at this time will keep patient NPO - general surgery to follow # acute hypoxic respiratory failure, secondary to aspiration pneumonia - patient with evidence of aspiration after placement of NG tube - chest x-ray negative but may be lagging - Levaquin 750mg IV q24 - continue O2 as required - monitor respiratory status # lactic acidosis, now resolved - likely secondary to small-bowel obstruction - no acute sepsis - trended down after IV fluids # history of HIV - keep home meds pending med review # DVT - hold Eliquis in anticipation of possible surgical intervention for small-bowel obstruction DVT prophylaxis:? SCDs Pt will need continued inpatient hospitalization given patient's unresolved small-bowel obstruction and treatment for aspiration pneumonia Quality Stroke Does the patient have a stroke diagnosis?: No VTE Prior VTE?: No VTE Risk Level:: Medical - moderate - high VTE Device Contraindication: N/A - Device Ordered VTE Drug Contraindication: Treatment Not Indicated
--- NOTE | 2022-03-18 13:38 | MHC.CM.PN ---
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
[2022-03-18] MEDS: Throat Lozenge, Medicated LOZENGE 1 LOZENGE MUCOUS MEM (23:02)
[2022-03-19 03:27] VITALS: BP 135/76; PULSE 90; RESP 20; TEMP 37.2; O2SAT 97
[2022-03-19] MEDS: Lactated Ringers 1,000 ML 100 ML IVCONT (06:13)
[2022-03-19 07:34] VITALS: BP 118/77; PULSE 87; RESP 17; TEMP 37.4; O2SAT 94
--- NOTE | 2022-03-19 07:55 | P.PNGS_ITS ---
Subjective Subjective Date of Service: 03/19/22 Patient reports: no new complaints, feels better, flatus and bowel movement Interval history: The patient reports that he had 3 bowel movements yesterday in his been passing gas. He otherwise denies abdominal pain, interval change since yesterday and is having no issues with difficulty breathing or shortness of breath. He was helpful that is nasogastric tube could be removed, so I placed an order and started him on clears. Physical Exam Vital Signs: Vital Signs: Last Vital Signs Temp 99.4 F 03/19/22 07:34 Pulse 87 03/19/22 07:34 Resp 17 03/19/22 07:34 BP 118/77 03/19/22 07:34 Pulse Ox 94 03/19/22 07:34 O2 Del Method 03/19/22 07:34 O2 Flow Rate 2.0 03/19/22 07:34 BMI result Body Mass Index 26.2 On exam, the patient is nontoxic The bilious drainage in his nasogastric tube is transition to light yellow/green, fresh bile. His abdomen is nontender and there is no rebound, rigidity or guarding I still do not appreciate any hernia to explain the patient's symptoms Objective Data Active Medications Acetaminophen (Acetaminophen 325 Mg Tablet) 650 mg PO Q6H PRN PRN Reason: Pain, Mild (Pain Scale 1-3) Benzocaine (Throat Lozenge, Medicated Lozenge) 1 lozenge MUCOUS MEM Q2H PRN PRN Reason: Sore Throat Last Admin: 03/18/22 23:02 Dose: 1 lozenge Documented By: IRVING Lactated Ringer's (Lr) 1,000 mls @ 100 mls/hr IVCONT .Q10H [facility] Last Admin: 03/19/22 06:13 Dose: 100 mls/hr Documented By: IRVING Levofloxacin (Levaquin) 750 mg in 150 mls @ 100 mls/hr IV Q24H [facility] Last Infusion: 03/18/22 12:39 Dose: 0 mls/hr Documented By: YANCY Morphine Sulfate (Morphine Sulfate 2 Mg/Ml Cartridge) 4 mg IVPUSH Q4H PRN; Protocol PRN Reason: Pain, Severe (Pain Scale 7-10) Last Admin: 03/18/22 19:33 Dose: 4 mg Documented By: IRVING Ondansetron HCl (Ondansetron Hcl 4 Mg/2 Ml Vial) 4 mg IVPUSH Q8H PRN PRN Reason: Nausea and Vomiting Pharmacy Consult (Consult Rx Perform Med Rec) 1 each MISCELLANE ONCE PRN PRN Reason: Consult order Sodium Chloride (0.9 % Sodium Chloride Flush 3 Ml Syringe) 3 ml IVFLUSH QSHIFT [facility] Last Admin: 03/18/22 23:22 Dose: Not Given Documented By: IRVING Non-Admin Reason: IV Running Labs CBC & Chem 7: 03/18/22 09:49 03/18/22 09:49 Labs: Laboratory Results - last 24 hr 03/18/22 03/18/22 09:49 09:49 MCV 88.1 MCH 28.3 MCHC 32.1 RDW 13.2 Plt Count 231 MPV 9.9 Immature Gran % (Auto) 0.4 Neut % (Auto) 70.8 Lymph % (Auto) 14.0 L [place] % (Auto) 14.2 H Eos % (Auto) 0.2 Baso % (Auto) 0.4 Lymph # (Auto) 0.8 L [place] # (Auto) 0.8 Eos # (Auto) 0.0 Baso # (Auto) 0.0 Abs Immat Gran (auto) 0.02 Absolute Neuts (auto) 3.9 Absolute Nucleated RBC 0.000 Nucleated RBC % (auto) 0.0 Anion Gap 15 Estim Creat Clear Calc 46.7 Estimated GFR 44 Random Glucose 107 Calcium 8.9 D Microbiology Microbiology Results: Microbiology 03/17/22 18:01 Blood Culture - Preliminary Blood - Venous No growth after 24 hours. 03/17/22 17:58 Blood Culture - Preliminary Blood - Venous No growth after 24 hours. Procedures Date of Service Date of Service: 03/19/22 Progress Note: A&P Assessment and plan (1) SBO (small bowel obstruction): Status: Acute (2) Aspiration pneumonia: Status: Acute (3) HIV (human immunodeficiency virus infection): Status: Acute (4) Hepatitis C: Status: Acute (5) DVT (deep venous thrombosis): Status: Acute Plan As noted, I have placed an order to remove his nasogastric tube and start him on a clear diet. If he is doing better and tolerating a clear diet tonight, his oral medicines can be resumed and his diet advanced with likely discharge tomorrow. If his abdominal pain/cramping returns, resume NPO and will consider a Gastrografin small-bowel follow-through to assess anatomy. Time Spent With Patient Time: Total time spent is greater than 50% in coordination of care (as documented) at patient's floor/unit and/or counseling patient: Quality Stroke Does the patient have a stroke diagnosis?: No VTE Prior VTE?: No VTE Risk Level:: Medical - moderate - high VTE Device Contraindication: N/A - Device Ordered VTE Drug Contraindication: Treatment Not Indicated
[2022-03-19] MEDS: levoFLOXacin/D5W 750 MG/150 ML PIGGYBACK 100 MG IV (09:10)
--- NOTE | 2022-03-19 09:28 | HO.PM.IMPN ---
Subjective Subjective Date of Service: 03/19/22 Interval History: Pt reports he is feeling much better. He started passing gas yesterday with three bowel movements. Denies abdominal pain or distention. Denies SOB or difficulty breathing. Cough is better but still intermittently productive. NGT has been removed and diet advanced to clears. Review of Systems Pt reports no new complaints. Denies abdominal pain. Denies SOB. Reports intermittent productive cough. Review of Systems: Yes all other systems are reviewed and are negative Physical Exam Vital Signs: Vital Signs: Last Vital Signs Temp 99.4 F 03/19/22 07:34 Pulse 87 03/19/22 07:34 Resp 17 03/19/22 07:34 BP 118/77 03/19/22 07:34 Pulse Ox 94 03/19/22 07:34 O2 Del Method 03/19/22 07:34 O2 Flow Rate 2.0 03/19/22 07:34 BMI result Body Mass Index 26.2 General: AOx3, no acute distress Resp: Mild expiratory wheezes in lower lobes bilaterally CVS: S1, S2, RRR GI: +BS, NT, no distention Skin: No rash Neuro: Motor grossly intact Psych: Appropriate affect Objective Data Active Medications Acetaminophen (Acetaminophen 325 Mg Tablet) 650 mg PO Q6H PRN PRN Reason: Pain, Mild (Pain Scale 1-3) Benzocaine (Throat Lozenge, Medicated Lozenge) 1 lozenge MUCOUS MEM Q2H PRN PRN Reason: Sore Throat Last Admin: 03/18/22 23:02 Dose: 1 lozenge Documented By: IRVING Lactated Ringer's (Lr) 1,000 mls @ 100 mls/hr IVCONT .Q10H [facility] Last Infusion: 03/19/22 09:09 Dose: 0 mls/hr Documented By: YANCY Levofloxacin (Levaquin) 750 mg in 150 mls @ 100 mls/hr IV Q24H [facility] Last Admin: 03/19/22 09:10 Dose: 100 mls/hr Documented By: YANCY Morphine Sulfate (Morphine Sulfate 2 Mg/Ml Cartridge) 4 mg IVPUSH Q4H PRN; Protocol PRN Reason: Pain, Severe (Pain Scale 7-10) Last Admin: 03/18/22 19:33 Dose: 4 mg Documented By: IRVING Ondansetron HCl (Ondansetron Hcl 4 Mg/2 Ml Vial) 4 mg IVPUSH Q8H PRN PRN Reason: Nausea and Vomiting Pharmacy Consult (Consult Rx Perform Med Rec) 1 each MISCELLANE ONCE PRN PRN Reason: Consult order Sodium Chloride (0.9 % Sodium Chloride Flush 3 Ml Syringe) 3 ml IVFLUSH QSHIFT [facility] Last Admin: 03/19/22 09:09 Dose: Not Given Documented By: YANCY Non-Admin Reason: IV Running Labs CBC & Chem 7: 03/18/22 09:49 03/18/22 09:49 Labs: Laboratory Results - last 24 hr 03/18/22 03/18/22 09:49 09:49 MCV 88.1 MCH 28.3 MCHC 32.1 RDW 13.2 Plt Count 231 MPV 9.9 Immature Gran % (Auto) 0.4 Neut % (Auto) 70.8 Lymph % (Auto) 14.0 L [place] % (Auto) 14.2 H Eos % (Auto) 0.2 Baso % (Auto) 0.4 Lymph # (Auto) 0.8 L [place] # (Auto) 0.8 Eos # (Auto) 0.0 Baso # (Auto) 0.0 Abs Immat Gran (auto) 0.02 Absolute Neuts (auto) 3.9 Absolute Nucleated RBC 0.000 Nucleated RBC % (auto) 0.0 Anion Gap 15 Estim Creat Clear Calc 46.7 Estimated GFR 44 Random Glucose 107 Calcium 8.9 D Microbiology Microbiology Results: Microbiology 03/17/22 18:01 Blood Culture - Preliminary Blood - Venous No growth after 24 hours. 03/17/22 17:58 Blood Culture - Preliminary Blood - Venous No growth after 24 hours. Assessment and Plan (1) SBO (small bowel obstruction): Status: Acute (2) Aspiration pneumonia: Status: Acute Plan Plan Pt is a 57-year-old male with PMH significant for HIV, Hep C, Chron's disease, history of substance abuse, DVT, traumatic amputation of right leg, who presented to the hospital with complaints of abdominal pain and distention and N/V. CT revealed an acute small-bowel obstruction. Pt vomited with NG tube placement, became hypoxic and went into respiratory distress, likely secondary to aspiration.? # small-bowel obstruction, now resolved - likely secondary to prior gastrointestinal surgery - pt reports passing flatus and having three bowel movements yesterday - NGT removed - diet advanced to clears - general surgery to follow # acute hypoxic respiratory failure, secondary to aspiration pneumonia - patient with evidence of aspiration after placement of NG tube - chest x-ray negative but may be lagging - Levaquin 750mg IV q24, change to PO tomorrow if tolerates clears today - continue O2 as required - monitor respiratory status # lactic acidosis, now resolved - likely secondary to small-bowel obstruction - no acute sepsis - trended down after IV fluids # history of HIV - keep home meds # DVT - resume Eliquis since surgical intervention no longer indicated DVT prophylaxis:? SCDs If pt tolerates clear diet today, pt will likley be discharged tomorrow. Quality Stroke Does the patient have a stroke diagnosis?: No VTE Prior VTE?: No VTE Risk Level:: Medical - moderate - high VTE Device Contraindication: N/A - Device Ordered VTE Drug Contraindication: Treatment Not Indicated
[2022-03-19 11:00] VITALS: BP 119/80; PULSE 91; RESP 18; TEMP 37; O2SAT 92
--- NOTE | 2022-03-19 13:53 | P.CDIC_ITS ---
CDI Concurrent Query Documentation Clarification: PHYSICIAN'S DOCUMENTATION REQUEST Date of Query: 03/19/22 [id number] Patient Name: Memo Mishra Admit Date: 03/17/22 Dear Doctor, A review of the medical record indicates additional documentation may be needed. Please review below and update the documentation accordingly. Clinical Indicators: The following diagnoses or signs and symptoms were noted in the patient record: Risk Factors/Clinical Indicators/Treatments per MD progress note 03/19/22: ?small-bowel obstruction, now resolved - likely secondary to prior gastrointest inal surgery - pt reports passing flatus and having t hree bowel movements yesterday - NGT removed - diet advanced to clears Based on the above, could you clarify in the Progress Notes the appropriate diagnosis, if significant, that supports the above abnormalities and additional evaluation, monitoring, and/or treatment rendered: * Partial SBO * Complete SBO * Other (please specify) * Unable to determine Use of terms such as suspected, likely, concern for, or probable (associated with a specific diagnosis that is being evaluated, monitored, or treated as if it exists) are acceptable and can be coded in the inpatient setting, when documented at the time of discharge. Thank you, Lesley Keith [insert CDI's credentials] Extension: [4-digit phone extension] Please use your independent medical judgment in providing your response. THIS QUERY IS PART OF THE PERMANENT MEDICAL RECORD Provider Response: Other Other Diagnosis: complete small bowel obstruction
[2022-03-19 15:21] VITALS: BP 130/75; PULSE 89; RESP 18; TEMP 37.2; O2SAT 92
[2022-03-19] MEDS: Apixaban 5 MG TABLET PO (19:35)
[2022-03-19 20:00] VITALS: BP 133/81; PULSE 89; RESP 18; TEMP 37.7; O2SAT 95
[2022-03-19] MEDS: Gabapentin 400 MG CAPSULE PO (22:54)
[2022-03-19] MEDS: 0.9 % Sodium Chloride Flush 3 ML SYRINGE IVFLUSH (22:56)
[2022-03-19 23:29] VITALS: BP 125/73; PULSE 96; RESP 18; TEMP 37.2; O2SAT 94
[2022-03-20 03:33] VITALS: BP 125/78; PULSE 80; RESP 20; TEMP 37.3; O2SAT 96
--- NOTE | 2022-03-20 07:07 | PM.PNGS ---
Subjective Subjective Date of Service: 03/20/22 Patient reports: no new complaints, feels better, tolerating liquids well, flatus and bowel movement Interval history: The patient reports that he continues to improve and is hungry. He denies any abdominal pain, chest pain, difficulty breathing or shortness of breath. He reports that he has had continued flatus and another couple bowel movements yesterday. He asked if his diet could be advanced since he is hungry. He denies any new complaints or neurologic issues. Physical Exam Vital Signs: Vital Signs: Last Vital Signs Temp 99.1 F 03/20/22 03:33 Pulse 80 03/20/22 03:33 Resp 20 03/20/22 03:33 BP 125/78 03/20/22 03:33 Pulse Ox 96 03/20/22 03:33 O2 Del Method 03/20/22 03:33 O2 Flow Rate 2 03/20/22 03:33 BMI result Body Mass Index 26.2 On exam, he is nontoxic and is in good spirits NC/AT, PERRLA, EOMI Abdomen is soft with no tenderness. No rebound, rigidity or guarding is noted. No masses, hernia or hepatosplenomegaly is present Objective Data Active Medications Acetaminophen (Acetaminophen 325 Mg Tablet) 650 mg PO Q6H PRN PRN Reason: Pain, Mild (Pain Scale 1-3) Apixaban (Apixaban 5 Mg Tablet) 5 mg PO BID [facility] Last Admin: 03/19/22 19:35 Dose: 5 mg Documented By: JUANIS Benzocaine (Throat Lozenge, Medicated Lozenge) 1 lozenge MUCOUS MEM Q2H PRN PRN Reason: Sore Throat Last Admin: 03/18/22 23:02 Dose: 1 lozenge Documented By: IRVING Gabapentin (Gabapentin 400 Mg Capsule) 400 mg PO TID [facility] Last Admin: 03/19/22 22:54 Dose: 400 mg Documented By: JUANIS Levofloxacin (Levaquin) 750 mg in 150 mls @ 100 mls/hr IV Q24H [facility] Last Infusion: 03/19/22 11:57 Dose: 0 mls/hr Documented By: YANCY Morphine Sulfate (Morphine Sulfate 2 Mg/Ml Cartridge) 4 mg IVPUSH Q4H PRN; Protocol PRN Reason: Pain, Severe (Pain Scale 7-10) Last Admin: 03/18/22 19:33 Dose: 4 mg Documented By: MATTHEW-SCHLM Ondansetron HCl (Ondansetron Hcl 4 Mg/2 Ml Vial) 4 mg IVPUSH Q8H PRN PRN Reason: Nausea and Vomiting Pharmacy Consult (Consult Rx Perform Med Rec) 1 each MISCELLANE ONCE PRN PRN Reason: Consult order Sodium Chloride (0.9 % Sodium Chloride Flush 3 Ml Syringe) [facility] Last Admin: 03/19/22 22:56 Dose: 3 ml Documented By: JUANIS Labs CBC & Chem 7: 03/18/22 09:49 03/18/22 09:49 Microbiology Microbiology Results: Microbiology 03/17/22 18:01 Blood Culture - Preliminary Blood - Venous No growth after 48 hours. 03/17/22 17:58 Blood Culture - Preliminary Blood - Venous No growth after 48 hours. Procedures Date of Service Date of Service: 03/20/22 Progress Note: A&P Assessment and plan (1) SBO (small bowel obstruction): Status: Acute (2) Aspiration pneumonia: Status: Acute (3) Personal history of nicotine dependence: Status: Acute (4) HIV (human immunodeficiency virus infection): Status: Acute (5) Hepatitis C: Status: Acute (6) DVT (deep venous thrombosis): Status: Acute (7) Amputation of leg, right, traumatic: Status: Acute Plan I have advanced the patient's diet since he is clinically improved. From a surgical perspective, there are no active issues and he can be discharged later this morning after he tolerates breakfast. Patient needs follow-up with his PCP. EMR shows a history of Crohn's disease diagnosed at [facility] with no follow-up. Given this transient bowel obstruction, the patient might of had a Crohn's flare or adhesions. It is also possible this was simply a case of gastroenteritis given the significant vomiting that was self limited. No surgical outpatient follow-up is required. Thank you for asking me to participate in his care. Will sign off. Time Spent With Patient Time: Total time spent is greater than 50% in coordination of care (as documented) at patient's floor/unit and/or counseling patient: Quality Stroke Does the patient have a stroke diagnosis?: No VTE Prior VTE?: No VTE Risk Level:: Medical - moderate - high VTE Device Contraindication: N/A - Device Ordered VTE Drug Contraindication: Treatment Not Indicated
[2022-03-20 07:58] VITALS: BP 127/84; PULSE 91; RESP 20; TEMP 36.7; O2SAT 95
--- NOTE | 2022-03-20 08:02 | HO.PM.IMPN ---
Subjective Subjective Date of Service: 03/20/22 Interval History: No acute issues overnight. Pt continues to feel better. Reports passing flatus and four bowel movements yesterday. Denies abdominal pain and distention. No SOB or difficulty breathing. Cough has resolved and no sputum production. General surgery has advanced his diet to regular and is cleared for discharge if he tolerates his breakfast. Review of Systems Pt reports no new complaints. Reports passing flatus and bowel movements. Denies abdominal pain or distention. Denies SOB, chest pain or pressure. Denies cough. Review of Systems: Yes all other systems are reviewed and are negative Physical Exam Vital Signs: Vital Signs: Last Vital Signs Temp 98.0 F 03/20/22 07:58 Pulse 91 03/20/22 07:58 Resp 20 03/20/22 07:58 BP 127/84 03/20/22 07:58 Pulse Ox 95 03/20/22 07:58 O2 Del Method 03/20/22 07:58 O2 Flow Rate 2.0 03/20/22 07:58 BMI result Body Mass Index 26.2 General: AOx3, no acute distress Resp: CTA bilaterally CVS: S1, S2, RRR GI: +BS, NT, no distention Skin: No rash Neuro: Motor grossly intact Psych: Appropriate affect Objective Data Active Medications Acetaminophen (Acetaminophen 325 Mg Tablet) 650 mg PO Q6H PRN PRN Reason: Pain, Mild (Pain Scale 1-3) Apixaban (Apixaban 5 Mg Tablet) 5 mg PO BID [facility] Last Admin: 03/19/22 19:35 Dose: 5 mg Documented By: JUANIS Benzocaine (Throat Lozenge, Medicated Lozenge) 1 lozenge MUCOUS MEM Q2H PRN PRN Reason: Sore Throat Last Admin: 03/18/22 23:02 Dose: 1 lozenge Documented By: IRVING Gabapentin (Gabapentin 400 Mg Capsule) 400 mg PO TID [facility] Last Admin: 03/19/22 22:54 Dose: 400 mg Documented By: JUANIS Levofloxacin (Levaquin) 750 mg in 150 mls @ 100 mls/hr IV Q24H [facility] Last Infusion: 03/19/22 11:57 Dose: 0 mls/hr Documented By: YANCY Morphine Sulfate (Morphine Sulfate 2 Mg/Ml Cartridge) 4 mg IVPUSH Q4H PRN; Protocol PRN Reason: Pain, Severe (Pain Scale 7-10) Last Admin: 03/18/22 19:33 Dose: 4 mg Documented By: IRVING Ondansetron HCl (Ondansetron Hcl 4 Mg/2 Ml Vial) 4 mg IVPUSH Q8H PRN PRN Reason: Nausea and Vomiting Pharmacy Consult (Consult Rx Perform Med Rec) 1 each MISCELLANE ONCE PRN PRN Reason: Consult order Sodium Chloride (0.9 % Sodium Chloride Flush 3 Ml Syringe) [facility] Last Admin: 03/19/22 22:56 Dose: 3 ml Documented By: JUANIS Labs CBC & Chem 7: 03/18/22 09:49 03/18/22 09:49 Microbiology Microbiology Results: Microbiology 03/17/22 18:01 Blood Culture - Preliminary Blood - Venous No growth after 48 hours. 03/17/22 17:58 Blood Culture - Preliminary Blood - Venous No growth after 48 hours. Assessment and Plan (1) Acute respiratory failure with hypoxia: Status: Acute (2) SBO (small bowel obstruction): Status: Acute (3) Aspiration pneumonia: Status: Acute Plan Pt is a 57-year-old male with PMH significant for HIV, Hep C, Chron's disease, history of substance abuse, DVT, traumatic amputation of right leg, who presented to the hospital with complaints of abdominal pain and distention and N/V. CT revealed an acute small-bowel obstruction with a transition zone in the right upper pelvis. Pt vomited with NG tube placement, became hypoxic and went into respiratory distress, likely secondary to aspiration.? # complete SBO, now resolved - likely secondary to prior gastrointestinal surgery - pt continues to pass flatus and having four bowel movements yesterday - NGT removed on 03/18 - diet advanced to regular 03/20 - general surgery cleared to discharge if tolerates breakfast - pt should follow up with PCP # acute hypoxic respiratory failure, secondary to aspiration pneumonia - patient with evidence of aspiration after placement of NG tube - chest x-ray negative but may be lagging - Levaquin 750mg IV q24, change to PO - continue O2 as required - monitor respiratory status # lactic acidosis, now resolved - likely secondary to small-bowel obstruction - no acute sepsis - trended down after IV fluids # history of HIV - keep home meds # DVT - resume Kimber since surgical intervention no longer indicated DVT prophylaxis:? SCDs If pt tolerates regular diet breakfast today, will be discharged today. Quality Stroke Does the patient have a stroke diagnosis?: No VTE Prior VTE?: No VTE Risk Level:: Medical - moderate - high VTE Device Contraindication: N/A - Device Ordered VTE Drug Contraindication: Treatment Not Indicated
[2022-03-20] MEDS: Apixaban 5 MG TABLET PO (08:06)
[2022-03-20] MEDS: Gabapentin 400 MG CAPSULE PO (08:06)
[2022-03-20] MEDS: levoFLOXacin/D5W 750 MG/150 ML PIGGYBACK 100 MG IV (08:06)
[2022-03-20] MEDS: 0.9 % Sodium Chloride Flush 3 ML SYRINGE IVFLUSH (08:07)
--- NOTE | 2022-03-20 09:55 | PM.DS ---
DS: Providers Provider Date of Service: 03/20/22 Date of admission: 03/17/22 21:22 Date of discharge: 03/20/22 Primary care physician: Lenora Julio MD Consults: 03/17/22 17:39 Consult to General Surgery Stat Consulting Provider: Nba Guerrero Reason for consultation: SBO Has provider been notified: Yes DS: Diagnosis Discharge Diagnosis (1) SBO (small bowel obstruction): Status: Acute (2) Aspiration pneumonia: Status: Acute (3) Personal history of nicotine dependence: Status: Acute (4) HIV (human immunodeficiency virus infection): Status: Acute (5) Hepatitis C: Status: Acute (6) DVT (deep venous thrombosis): Status: Acute (7) Amputation of leg, right, traumatic: Status: Acute DS: Summary Hospital Course Hospital Course: Presenting HPI: Chief Complaint: Abdominal pain This is a 57-year-old male with past medical history of HIV, hep C, Crohn's disease, history of substance abuse, DVT, traumatic amputation of right leg, of abdominal pain and distension.? Patient reports the pain started the day prior, pain is 10/10, associated with nausea vomiting, worse in the lower abdomen, nonradiating.? Constant.? Last bowel movement once a day prior, he is not passing gas.? Denies any fever chills, no chest pain, no shortness of breath.? No urinary symptoms and no lower extremity edema.? Patient has history of appendectomy.? On arrival to the ED patient hemodynamically stable with no significant abnormal vitals. ?Labs are significant for WBC count of 11.6 lactic acid of 2.9 improved after IV fluids, otherwise unremarkable Abdomen pelvic CT shows distal small-bowel obstruction with transition zone in the right upper pelvis, also there was dense 0 view admit to really noted in the lumen of the small bowel While patient was receiving the NG tube to decompress for small-bowel obstruction he has significant vomiting, became hypoxic went into respiratory distress.? Likely secondary to aspiration.? Patient's heart rate increased to the 130s, became tachypneic, patient was placed on nasal cannula with improvement in his symptoms.? Chest x-ray showed no acute abnormality Despite the NG tube placement patient continued to have vomiting, general surgery was called, came to evaluate patient, recommended changing the NG tube 12 bigger tube, the NG tube was changed with improvement patient's symptoms Hospital Course: Pt was initially made NPO and had NGT placed on 03/17/22. Pt began passing flatus and had bowel movements on 03/18/22; diet advanced to clears. Pt complained of productive cough and started on levofloxacin for aspiration pneumonia. Pt continued passing flatus and had bowel movements on 03/19/22; abdominal pain resolved. Pt reported improvement of cough but still had occasional sputum production. Pt's diet advanced to normal on 03/20/22. Continued to pass flatus and cough now resolved. Denies abdominal pain, SOB, chest pain/pressure. Pt to be discharged now that he can tolerate normal diet. Status at Discharge Overall status at discharge: patient is back to baseline Time Spent with Patient Time attestation: Total time spent providing and/or coordinating discharge services: Discharge coordination time: Greater than 30 minutes Quality: Safe Use of Opioids Does Pt have an Active Cancer Diagnosis on the Problem List?: No Quality: Stroke Does the patient have a stroke diagnosis?: No Physical Exam Vital Signs: Vital Signs: Last Vital Signs Temp 98.0 F 03/20/22 07:58 Pulse 91 03/20/22 07:58 Resp 20 03/20/22 07:58 BP 127/84 03/20/22 07:58 Pulse Ox 95 03/20/22 07:58 O2 Del Method 03/20/22 07:58 O2 Flow Rate 2.0 03/20/22 07:58 BMI result Body Mass Index 26.2 General: AOx3, no acute distress Resp: CTA bilaterally CVS: S1, S2, RRR GI: +BS, NT, no distention Skin: No rash Neuro: Motor grossly intact Psych: Appropriate affect DS: Data Data Completed and Pending Labs on day of discharge: Preliminary micro results at discharge 03/17/22 18:01 Blood Culture - Preliminary Blood - Venous No growth after 48 hours. 03/17/22 17:58 Blood Culture - Preliminary Blood - Venous No growth after 48 hours. Discharge Plan Discharge Anticipated Discharge Date/Time: 03/20/22 09:09 Patient Disposition: Home, Self-Care Discharge Diagnosis: Small Bowel Obstruction Aspiration Pneumonia Acute Respiratory Failure with Hypoxia Referrals: [facility] [Other] - 1 Week Lenora Julio MD [Primary Care Provider] - 1 Week Discharge Medications: New levofloxacin 750 mg tablet 750 mg PO Q24H Qty: 2 0RF Rx Instructions: Take one tablet on 03/21/22 and another on 03/22/22. Complete course of antibiotics. Continued multivitamin Tablet 1 tab PO QAM methocarbamol 500 mg tablet 1 tab PO QID PRN (Reason: pain) sulfamethoxazole-trimethoprim 400-80 mg tablet 1 tab PO QAM gabapentin 400 mg capsule 1 cap PO TID sumatriptan succinate 50 mg tablet 50 mg PO DAILY PRN (Reason: Migraine Headache) acetaminophen 650 mg tablet extended release 1 tab PO Q6H PRN (Reason: Pain) paroxetine HCl 20 mg tablet 1 tab PO BEDTIME docusate sodium 100 mg capsule 1 cap PO BID PRN (Reason: constipation) omeprazole 20 mg capsule,delayed release(DR/EC) 1 cap PO QAM mirtazapine 15 mg tablet 1 tab PO BEDTIME melatonin 5 mg tablet 1 tab PO BEDTIME Biktarvy 50-200-25 mg tablet 1 tab PO BEDTIME Eliquis DVT-PE Treat 30D Start 5 mg (74 tabs) tablets,dose pack 5 mg PO BID Qty: 74 0RF Discharge Orders: Discharge Order (Routine); Ordered 03/20/22 Ordered By: Jose Mayfield Diet: Advance to usual diet Activity on Discharge: As tolerated Stand Alone Forms: Patient Portal Discharge page Care Plan Goals: Resume all home meds Health Concerns: F/U with PCP in 2 weeks. Discuss possible treatments for previously-diagnosed Crohn's disease which possibly contributed to SBO. Monitor bowel movements. Plan of Treatment: Complete course (Levaquin) of antibiotics for aspiration pneumonia. Assessment: See discharge summary. Patient Instructions: Crohn Disease (GEN), Pneumonia (DC)
--- NOTE | 2022-03-20 11:07 | MHC.CM.PN ---
Male 57 is discharged to home with family assist and transportation. He will resume out patient Maria[facility] @ [facility] @ [facility] [place].
[2022-03-20 11:22] VITALS: BP 128/79; PULSE 85; RESP 20; TEMP 36.3; O2SAT 92
== END 2022-03-20 14:32 | disposition home or self-care (01) | DRG 252 ==
LOC: HO.ED 19:11 → HO.EDOVER 21:29 → HO.S3 21:46
PROVIDERS: Nurse Practitioner Family; Physician Assistant; Admitting Provider Internal Medicine; Emergency Provider Internal Medicine; PCP General Practice; Visit Provider Internal Medicine
DX: K91.32 Postprocedural complete intestinal obstruction (principal); J96.01 Acute respiratory failure with hypoxia; J69.0 Pneumonitis due to inhalation of food and vomit; Z89.611 Acquired absence of right leg above knee; F11.11 Opioid abuse, in remission; E87.20 Acidosis, unspecified; Z21 Asymptomatic human immunodeficiency virus [HIV] infection status; Z20.822 Contact with and (suspected) exposure to COVID-19; Z86.718 Personal history of other venous thrombosis and embolism; Z86.19 Personal history of other infectious and parasitic diseases; Z88.0 Allergy status to penicillin; Z91.013 Allergy to seafood; Z79.01 Long term (current) use of anticoagulants; Z79.899 Other long term (current) drug therapy
CPT/HCPCS: 36415; 71045; 74177; 80048; 80076; 83605; 83615; 83690; 83735; 85025; 87040; 87635; 93005; 94640; 99285; J0692; J1200; J1885; J1956; J2270; J2405; J2765; Q9967

== ENCOUNTER 2022-06-03 07:25 | Emergency (ER) | payer MEDICAID, SELFPAY ==
[2022-06-03 07:47] VITALS: BP 143/89; PULSE 118; RESP 14; TEMP 36.3; O2SAT 94; BMI 24.5
== END 2022-06-03 10:18 | disposition left against medical advice (07) ==
PROVIDERS: Emergency Provider Emergency Medicine; PCP General Practice
DX: R05.9 Cough, unspecified (principal); M79.10 Myalgia, unspecified site
CPT/HCPCS: 99281

== ENCOUNTER 2022-06-21 08:00 | Outpatient (RCR) | payer MEDICAID, SELFPAY | END 2022-07-11 09:41 | disposition home or self-care (01) | LOC: HO.PT 08:00 | PROVIDERS: PCP General Practice; Visit Provider General Practice | DX: S78.111A Complete traumatic amputation at level between right hip and knee, initial encounter (principal) | CPT/HCPCS: 97110; 97112; 97116; 97163; 97530 ==

== ENCOUNTER → 2022-07-08 10:17 | Outpatient (BNVA) | payer MEDICAID, SELFPAY | PROVIDERS: PCP General Practice; Visit Provider Internal Medicine | DX: G54.6 Phantom limb syndrome with pain (principal) | CPT/HCPCS: 99202 ==

== ENCOUNTER → 2022-09-04 12:07 | Day surgery (SDC) | payer MEDICAID, SELFPAY ==
[2022-08-30 19:02] VITALS: BMI 24.4
--- NOTE | 2022-09-03 11:04 | P.CONAN_ITS ---
Documented by User: Sara Gardner NP 09/03/22 11:10 HPI - Anesthesia Eval Consult details Narrative: 57yo M for Right SPRINT femoral nerve stimulation temporary placement Eliquis for hx DVT. Cleared to hold [facility] [place] 02/2022 with SBO r/t crohn's. NGT and abx, no surgery PMFSH Past Medical History Medical History Acute deep vein thrombosis (DVT) of right femoral vein Amputation of leg, right, traumatic Ankle fracture, left Closed fracture of phalanx of second toe Crohn's disease Depression DVT (deep venous thrombosis) Fracture of left great toe Hepatitis C HIV (human immunodeficiency virus infection) PAD (peripheral artery disease) Personal history of nicotine dependence Substance abuse Family History Family History (Updated 03/18/22 @ 05:14 by Tarik Carlton MD) Other No family history of coronary artery disease Surgical History Surgical History History of cochlear implant History of colonoscopy History of laparoscopic cholecystectomy History of liver biopsy History of right above knee amputation Social History Social History Household Members: Spouse and Family Housing: Apartment Are you a primary respiratory care assistant to a significant other at home: No Do you presently have visiting nurse or other home services: No Alcohol intake: never Patient Tobacco Use Status: Current someday Tobacco user Tobacco use type: Cigarette Cigarettes Per Day: 2 Years Smoked: (onset 16, 1/2-1ppd x 38yrs, 30pyh, quit 01/01/2020) Smoked in Last 30 Days: Yes Second Hand Smoke Exposure: Yes Use of substances other than those prescribed or required for medical reasons: No Substance Use Type: Marijuana Have you been hit, kicked, punched, or otherwise hurt by someone within the past year? If so, by whom?: No Advance Directives: No Advance Directives Information Provided: Yes Recently lost weight without trying: No Nutrition Risks: No Nutritional Risk Poor oral hygiene: No service: No Current occupational status: unemployed Gender identity: Male Meds Allergies Allergy/AdvReac Type Severity Reaction Status Date / Time Penicillins [PENICILLINS] Allergy Severe SWELLING Verified 09/02/22 13:01 shellfish derived Allergy Severe SWELLING Verified 09/02/22 13:01 [SHELLFISH DERIVED] penicillin G Allergy Unknown facial Verified 09/02/22 13:01 swelling CHOCOLATE Allergy Severe SWELLING Uncoded 09/02/22 13:01 Home Medications Medication Instructions Recorded Confirmed Last Taken Type acetaminophen 650 mg 1 tab PO Q6H PRN Pain 03/18/22 08/30/22 Unknown History tablet,extended release bictegravir 50 mg-emtricitabine 1 tab PO BEDTIME 03/18/22 08/30/22 Unknown History 200 mg-tenofovir alafenam 25 mg tablet (Biktarvy) docusate sodium 100 mg capsule 1 cap PO BID PRN constipation 03/18/22 08/30/22 Unknown History gabapentin 400 mg capsule 1 cap PO TID 03/18/22 08/30/22 Unknown History melatonin 5 mg tablet 1 tab PO BEDTIME 03/18/22 08/30/22 Unknown History methocarbamol 500 mg tablet 1 tab PO QID PRN pain 03/18/22 08/30/22 Unknown History mirtazapine 15 mg tablet 1 tab PO BEDTIME 03/18/22 08/30/22 Unknown History multivitamin 1 tab PO QAM 03/18/22 08/30/22 Unknown History omeprazole 20 mg capsule,delayed 1 cap PO QAM 03/18/22 08/30/22 Unknown History release paroxetine HCl 20 mg tablet 1 tab PO BEDTIME 03/18/22 08/30/22 Unknown History sulfamethoxazole 400 1 tab PO QAM 03/18/22 08/30/22 Unknown History mg-trimethoprim 80 mg tablet sumatriptan succinate 50 mg tablet 50 mg PO DAILY PRN Migraine 03/18/22 08/30/22 Unknown History Headache Exam Exam Date and Time: September 03, 2022 1104 Height,Weight and Vital Signs: Height 5 ft 6 in Weight 68.492 kg Pertinent Lab Results Pertinent Lab Results: Laboratory Tests 03/17/22 03/18/22 03/18/22 15:20 09:49 09:49 WBC 5.5 Hgb 14.0 Hct 43.6 Plt Count 231 Sodium 141 144 Potassium 4.2 4.6 Chloride 104 107 Carbon Dioxide 26 27 BUN 23 H 33 H D Creatinine 1.22 1.61 H Calcium 9.9 D Magnesium 2.0 Total Bilirubin 0.8 Direct Bilirubin 0.2 AST 27 ALT 16 Alkaline Phosphatase 191 H Lactate Dehydrogenase 228 Total Protein 8.4 H Albumin 4.8 Narrative Narrative: EKG 02/2022 Vent. Rate : 142 BPM ? ? Atrial Rate : 142 BPM ?? P-R Int : 126 ms? QRS Dur : 070 ms ? ? QT Int : 278 ms ? ? ? P-R-T Axes : 054 259 037 degrees ?? QTc Int : 427 ms ? Sinus tachycardia with Premature atrial complexes with Aberrant conduction Right superior axis deviation Abnormal ECG When compared with ECG of 21-OCT-2021 19:54, Aberrant conduction is now Present Vent. rate has increased BY? 77 BPM QRS axis Shifted left Assessment and Plan Assessment Anesthesia Assessment: Chart Reviewed Documented by User: Krystina Curtis MD 09/04/22 12:46 [facility] Past Medical History Medical History Acute deep vein thrombosis (DVT) of right femoral vein Amputation of leg, right, traumatic Ankle fracture, left Closed fracture of phalanx of second toe Crohn's disease Depression DVT (deep venous thrombosis) Fracture of left great toe Hepatitis C HIV (human immunodeficiency virus infection) PAD (peripheral artery disease) Personal history of nicotine dependence Substance abuse Family History Family History (Updated 03/18/22 @ 05:14 by Tarik Carlton MD) Other No family history of coronary artery disease Family history of problems with anesthesia: No Surgical History Surgical History History of cochlear implant History of colonoscopy History of laparoscopic cholecystectomy History of liver biopsy History of right above knee amputation History of Problems with Anesthesia: No Social History Social History Household Members: Spouse and Family Housing: Apartment Are you a primary respiratory care assistant to a significant other at home: No Do you presently have visiting nurse or other home services: No Alcohol intake: never Patient Tobacco Use Status: Current someday Tobacco user Tobacco use type: Cigarette Cigarettes Per Day: 2 Years Smoked: (onset 16, 1/2-1ppd x 38yrs, 30pyh, quit 01/01/2020) Smoked in Last 30 Days: Yes Second Hand Smoke Exposure: Yes Use of substances other than those prescribed or required for medical reasons: No Substance Use Type: Marijuana Have you been hit, kicked, punched, or otherwise hurt by someone within the past year? If so, by whom?: No Advance Directives: No Advance Directives Information Provided: Yes Recently lost weight without trying: No Nutrition Risks: No Nutritional Risk Poor oral hygiene: No service: No Current occupational status: unemployed Gender identity: Male Meds Allergies Allergy/AdvReac Type Severity Reaction Status Date / Time Penicillins [PENICILLINS] Allergy Severe SWELLING Verified 09/02/22 13:01 shellfish derived Allergy Severe SWELLING Verified 09/02/22 13:01 [SHELLFISH DERIVED] penicillin G Allergy Unknown facial Verified 09/02/22 13:01 swelling CHOCOLATE Allergy Severe SWELLING Uncoded 09/02/22 13:01 Home Medications Medication Instructions Recorded Confirmed Last Taken Type acetaminophen 650 mg 1 tab PO Q6H PRN Pain 03/18/22 08/30/22 Unknown History tablet,extended release bictegravir 50 mg-emtricitabine 1 tab PO BEDTIME 03/18/22 08/30/22 Unknown History 200 mg-tenofovir alafenam 25 mg tablet (Biktarvy) docusate sodium 100 mg capsule 1 cap PO BID PRN constipation 03/18/22 08/30/22 Unknown History gabapentin 400 mg capsule 1 cap PO TID 03/18/22 08/30/22 Unknown History melatonin 5 mg tablet 1 tab PO BEDTIME 03/18/22 08/30/22 Unknown History methocarbamol 500 mg tablet 1 tab PO QID PRN pain 03/18/22 08/30/22 Unknown History mirtazapine 15 mg tablet 1 tab PO BEDTIME 03/18/22 08/30/22 Unknown History multivitamin 1 tab PO QAM 03/18/22 08/30/22 Unknown History omeprazole 20 mg capsule,delayed 1 cap PO QAM 03/18/22 08/30/22 Unknown History release paroxetine HCl 20 mg tablet 1 tab PO BEDTIME 03/18/22 08/30/22 Unknown History sulfamethoxazole 400 1 tab PO QAM 03/18/22 08/30/22 Unknown History mg-trimethoprim 80 mg tablet sumatriptan succinate 50 mg tablet 50 mg PO DAILY PRN Migraine 03/18/22 08/30/22 Unknown History Headache Exam Airway Mallampati Class: II TM Dist: >3cm Neck ROM: Full Heart: rrr Lungs: cta Assessment and Plan Assessment Anesthesia Assessment: Anesthesia Plan Discussed Final Anesthetic Review Family History of Problems with Anesthesia: No History of Problems with Anesthesia: No NPO: Yes ASA Class: III Final Preanesthetic Review: No Changes in Pt Med Stat, Meds/Allgs Chart Reviewed and Consent Obtained/Reviewed Patient Risk: Low Procedure Risk: Low Anesthetic Plan Anesthetic Plan: MAC: Disposition: Standard PACU
[2022-09-04 13:12] VITALS: BP 132/88; PULSE 66; RESP 16; TEMP 36.3; O2SAT 94
[2022-09-04] MEDS: Lactated Ringers 1,000 ML 100 ML IVCONT (13:21)
--- NOTE | 2022-09-04 13:30 | PC.NURSE ---
PATIENT STATES HE DID NOT STOP HIS ELIQUIS FOR THE PLANNED PROCEDURE TODAY. DR HERNDON MADE AWARE. OKAY PER HIM, TO PROCEED.
[2022-09-04 14:16] VITALS: BP 116/83; PULSE 61; RESP 16; TEMP 36.4; O2SAT 96
[2022-09-04 14:30] VITALS: BP 129/89; PULSE 58; RESP 16; O2SAT 95
[2022-09-04 14:45] VITALS: BP 137/80; PULSE 55; RESP 16; O2SAT 95
[2022-09-04 15:00] VITALS: BP 124/78; PULSE 59; RESP 16; TEMP 36.1; O2SAT 95
--- NOTE | 2022-09-04 15:32 | MHC.SHP ---
Pre-Procedural Eval Section A Date of Service: 09/04/22 Changes since office visit: Yes Patient answered all questions The History & Physical has been completed within 30 days and I have reviewed it.: Yes Section B Chief Complaint: Phantom limb syndrome with pain Relevant Social History: None Present Medications: see Short Stay Collaborative assessment Medical History: Significant History History of Previous Operations: Relevant previous surgery/procedure and date(s) Allergies: Allergies Allergy/AdvReac Type Severity Reaction Status Date / Time penicillin G Allergy Severe facial Verified 09/04/22 13:04 swelling Penicillins [PENICILLINS] Allergy Severe SWELLING Verified 09/04/22 13:04 shellfish derived Allergy Severe SWELLING Verified 09/04/22 13:04 [SHELLFISH DERIVED] CHOCOLATE Allergy Severe SWELLING Uncoded 09/04/22 13:04 Review of Systems Sugical H&P ROS: Negative: Constitution, Cardiovascular and Respiratory Exam Surgical H&P Exam: Normal: HEENT, Normal: Heart and Normal: Lungs Plan Diagnosis/Plan: Unchanged I have reviewed the history and physical and performed a pertinent physical examination on my patient. No changes have occurred unless specified. Time Spent With Patient Time: Total time managing care of this patient today ____ minutes.
--- NOTE | 2022-09-04 15:33 | P.BOP_ITS ---
Brief Operative Note Date of Service: 09/04/22 Pre-op diagnosis: Phantom limb pain, right lower extremity Post-op diagnosis: same Procedure: Right femoral nerve temporary stimulator placement Implants: Sprint temporary PNS system Surgeon: Pablito Haro MD Anesthesia: MAC Was an Abrasives Sales Representative used for this Procedure?: No Estimated blood loss (mL): 1 Pathology: none sent Condition: stable Disposition: PACU
--- NOTE | 2022-09-04 15:34 | P.OP_ITS ---
Operative Note Operative Note Date of Service: 09/04/22 Narrative: Peripheral Nerve Stimulation Temporary Lead Placement, Ultrasound-Guided, Femoral Nerve, Right ? After the risks, benefits and alternatives were discussed with the patient and informed consentwas obtained, patient was placed in the supine position and padded to foster comfort. The patient was anesthetized by the machine operators for comfort during needle placement. Appropriate skin and bony landmarks were iden tified, and pertinent vascular structures were located. The skin overlying the needle entry site was prepped and draped in sterile fashion. Ultrasound was used to identify the femoral artery, the femoral vein and the femoral nerve. After identifying and marking the intended target along the course of the femoral nerve, the skin around the planned entry point and the subcutaneous tissues were injected with local anesthetic. An introducer needle and stimulating probe were assembled, inserted and advanced along the intended course of the saphenous; nerve, taking care to maintain the proper depth of insertion as the introducer was advanced under ultrasound guidance. The introducer needle was delivered to a location in proximity to the nerve taking care not to puncture the femoral artery or the vein. Multiple stimulation parameters were used to deliver stimulation to the saphenous nerve in concert with stimulating at multiple positions around the nerve. Nerve target acquisition was confirmed noting generation of sensory and mild motor effects (paresthesia, muscle tension, etc) in the right leg stump; corresponding to the patient's distribution of the femoral nerve. Various electrical parameter combinations were tested, and the lead location was adjusted (physically relocated under ultrasound guidance) until the patient indicated paresthesia and tension overlapping the distribution of the patient?s typical region of pain. The stimulating probe was removed from the introducer and a percutaneous lead was guided through the needle and delivered to a location in similar proximity t o the nerve. Final location was verified with electrical stimulation and documented. The introducer needle was removed, and the exposed end of the percutaneous lead was attached to an external stimulator unit. Various electrical parameter combinations were again tested until the patient indicated paresthesia and muscle tension overlapping the distribution of the patient?s typical region of pain. After confirming that lead impedance was in the normal range, the external unit was detached, the needle was removed, and the lead was anchored at the skin. The lead was threaded into the connector block and electrical continuity and desired patient response was confirmed. The connector block was attached to the external stimulator unit. The site was covered with a sterile occlusive dressing. A f ina ultrasound image was taken to document final placement. The patient was observed for stability of vital signs and comfort.
== END | disposition home or self-care (01) ==
PROVIDERS: PCP General Practice; Visit Provider Internal Medicine
PROC: (CPT 64555; principal; 2022-09-04 13:40)
DX: G54.6 Phantom limb syndrome with pain (principal); Z89.611 Acquired absence of right leg above knee; I82.411 Acute embolism and thrombosis of right femoral vein; I73.9 Peripheral vascular disease, unspecified; B20 Human immunodeficiency virus [HIV] disease; B19.20 Unspecified viral hepatitis C without hepatic coma; Z79.899 Other long term (current) drug therapy; Z79.01 Long term (current) use of anticoagulants; Z88.0 Allergy status to penicillin; F19.11 Other psychoactive substance abuse, in remission; F12.90 Cannabis use, unspecified, uncomplicated; Z87.891 Personal history of nicotine dependence
CPT/HCPCS: 64555; C1778; J2250

== ENCOUNTER → 2022-09-09 10:38 | Outpatient (BNVA) | payer MEDICAID, SELFPAY | PROVIDERS: PCP General Practice; Visit Provider Internal Medicine | DX: Z96.89 Presence of other specified functional implants (principal) | CPT/HCPCS: 99211 ==

== ENCOUNTER → 2022-09-20 12:47 | Outpatient (BNVA) | payer MEDICAID, SELFPAY | PROVIDERS: PCP General Practice; Visit Provider Internal Medicine ==

== ENCOUNTER 2022-09-25 10:16 | Day surgery (SDC) | payer MEDICAID, SELFPAY ==
[2022-09-19 14:40] VITALS: BMI 24.4
--- NOTE | 2022-09-25 11:42 | HO.ANESPROP2 ---
[facility] Past Medical History Medical History Acute deep vein thrombosis (DVT) of right femoral vein Amputation of leg, right, traumatic Ankle fracture, left Closed fracture of phalanx of second toe Crohn's disease Depression DVT (deep venous thrombosis) Fracture of left great toe Hepatitis C HIV (human immunodeficiency virus infection) PAD (peripheral artery disease) Personal history of nicotine dependence Substance abuse Family History Family History (Updated 03/18/22 @ 05:14 by Tarik Carlton MD) Other No family history of coronary artery disease Family history of problems with anesthesia: No Surgical History Surgical History History of cochlear implant History of colonoscopy History of laparoscopic cholecystectomy History of liver biopsy History of right above knee amputation History of surgery History of Problems with Anesthesia: No Social History Social History Household Members: Spouse and Family Housing: Apartment Are you a primary acute care assistant to a significant other at home: No Do you presently have visiting nurse or other home services: No Alcohol intake: never Patient Tobacco Use Status: Current everyday Tobacco user Tobacco use type: Cigarette Cigarettes Per Day: 2 Years Smoked: (onset 16, 1/2-1ppd x 38yrs, 30pyh, quit 01/01/2020) Second Hand Smoke Exposure: Yes Use of substances other than those prescribed or required for medical reasons: No Substance Use Type: Marijuana Have you been hit, kicked, punched, or otherwise hurt by someone within the past year? If so, by whom?: No Are you DNR?: No Advance Directives: No Advance Directives Information Provided: Yes (brochure mailed) Advance Directives on File: No Recently lost weight without trying: No Eating poorly because of decreased appetite: No Nutrition Risks: No Nutritional Risk service: No Current occupational status: unemployed Gender identity: Male Meds Allergies Allergy/AdvReac Type Severity Reaction Status Date / Time Penicillins [PENICILLINS] Allergy Severe SWELLING Verified 09/25/22 11:29 shellfish derived Allergy Severe SWELLING Verified 09/25/22 11:29 [SHELLFISH DERIVED] CHOCOLATE Allergy Severe SWELLING Uncoded 09/09/22 11:26 Home Medications Medication Instructions Recorded Confirmed Last Taken Type acetaminophen 650 mg 1 tab PO Q6H PRN Pain 03/18/22 09/19/22 09/04/22 History tablet,extended release bictegravir 50 mg-emtricitabine 1 tab PO BEDTIME 03/18/22 09/19/22 09/04/22 History 200 mg-tenofovir alafenam 25 mg tablet (Biktarvy) docusate sodium 100 mg capsule 1 cap PO BID PRN constipation 03/18/22 09/19/22 09/04/22 History gabapentin 400 mg capsule 1 cap PO TID 03/18/22 09/19/22 09/25/22 06:00 History melatonin 5 mg tablet 1 tab PO BEDTIME 03/18/22 09/19/22 Unknown History methocarbamol 500 mg tablet 1 tab PO QID PRN pain 03/18/22 09/19/22 09/04/22 History mirtazapine 15 mg tablet 1 tab PO BEDTIME 03/18/22 09/19/22 09/04/22 History multivitamin 1 tab PO QAM 03/18/22 09/19/22 09/25/22 06:00 History omeprazole 20 mg capsule,delayed 1 cap PO QAM 03/18/22 09/19/22 09/25/22 06:00 History release paroxetine HCl 20 mg tablet 1 tab PO BEDTIME 03/18/22 09/19/22 09/04/22 History sulfamethoxazole 400 1 tab PO QAM 03/18/22 09/09/22 09/25/22 06:00 History mg-trimethoprim 80 mg tablet sumatriptan succinate 50 mg tablet 50 mg PO DAILY PRN Migraine 03/18/22 09/19/22 09/04/22 History Headache Exam Exam Date and Time: September 25, 2022 1142 Height,Weight and Vital Signs: Height 5 ft 6 in Weight 68.492 kg Airway Mallampati Class: II TM Dist: >3cm Neck ROM: Full Partial: Upper Heart: rrr Lungs: cta Assessment and Plan Assessment Anesthesia Assessment: Anesthesia Plan Discussed and Chart Reviewed Final Anesthetic Review Family History of Problems with Anesthesia: No History of Problems with Anesthesia: No NPO: Yes ASA Class: II Final Preanesthetic Review: No Changes in Pt Med Stat, Meds/Allgs Chart Reviewed and Consent Obtained/Reviewed Patient Risk: Intermediate Procedure Risk: Intermediate Anesthetic Plan Anesthetic Plan: MAC: Disposition: Standard PACU
[2022-09-25 11:43] VITALS: BP 119/79; PULSE 64; RESP 16; TEMP 36; O2SAT 95
[2022-09-25] MEDS: Lactated Ringers 1,000 ML 50 ML IVCONT (11:48)
[2022-09-25 13:03] VITALS: BP 88/59; PULSE 60; RESP 16; TEMP 36.1; O2SAT 95
[2022-09-25 13:18] VITALS: BP 112/75; PULSE 56; RESP 16; O2SAT 95
[2022-09-25 13:34] VITALS: BP 120/85; PULSE 56; RESP 16; TEMP 36.1; O2SAT 95
--- NOTE | 2022-09-25 15:48 | MHC.SHP ---
Pre-Procedural Eval Section A Date of Service: 09/25/22 The patient is an INPATIENT: No Changes since office visit: Yes Patient answered all questions The History & Physical has been completed within 30 days and I have reviewed it.: Yes Section B Chief Complaint: Phantom limb syndrome with pain Relevant Family History (Specify if Yes): Yes Relevant Social History: None Present Medications: see Short Stay Collaborative assessment Medical History: No relevant PMH History of Previous Operations: No relevant previous surgery Allergies: Allergies Allergy/AdvReac Type Severity Reaction Status Date / Time Penicillins [PENICILLINS] Allergy Severe SWELLING Verified 09/25/22 11:29 shellfish derived Allergy Severe SWELLING Verified 09/25/22 11:29 [SHELLFISH DERIVED] CHOCOLATE Allergy Severe SWELLING Uncoded 09/09/22 11:26 Review of Systems Sugical H&P ROS: Negative: Constitution, Cardiovascular and Respiratory Exam Surgical H&P Exam: Normal: HEENT, Normal: Heart and Normal: Lungs Plan Diagnosis/Plan: Unchanged I have reviewed the history and physical and performed a pertinent physical examination on my patient. No changes have occurred unless specified. Time Spent With Patient Time: Total time managing care of this patient today ____ minutes.
--- NOTE | 2022-10-02 08:46 | P.BOP_ITS ---
Brief Operative Note Date of Service: 09/25/22 Pre-op diagnosis: Phantom limb pain, right Post-op diagnosis: same Procedure: Temporary right sciatic nerve stimulator placement Implants: Sprint temporary PNS system Surgeon: Pablito Haro MD Anesthesia: MAC Was an Automotive Parts Clerk used for this Procedure?: No Estimated blood loss (mL): 3 Pathology: none sent Condition: stable Disposition: PACU
--- NOTE | 2022-10-02 08:47 | P.OP_ITS ---
Operative Note Operative Note Date of Service: 09/25/22 Narrative: Peripheral Nerve Stimulation Temporary Lead Placement, Ultrasound-Guided, Sciatic Nerve, Right ? After the risks, benefits and alternatives were discussed with the patient and informed consentwas obtained, patient was placed in the supine position and padded to foster comfort. Appropriate skin and bony landmarks were identified for transgluteal sciatic nerve stimulator placement. The skin overlying the nee dle entry site was prepped and draped in sterile fashion. Ultrasound was used to identify the sciatic nerve. After identifying and marking the intended target along the course of the sciatic nerve, the skin around the planned entry point and the subcutaneous tissues were injected with local anesthetic. An introducer needle and stimulating probe were assembled, inserted and advanced towards the sciatic nerve in an out of plane approach, taking care to maintain the proper depth of insertion as the introducer was advanced under ultrasound guidance. The introducer needle was delivered to a location in proximity to the nerve. Multiple stimulation parameters were used to deliver stimulation to the sciatic nerve in concert with stimulating at multiple positions around the nerve. Nerve target acquisition was confirmed noting generation of sensory and mild motor effects (paresthesia, muscle tension, etc) in the right buttock; corresponding to the distribution of the patient's sciatic nerve. Various electrical parameter combinations were tested, and the lead location was adjusted (physically relocated under ultrasound guidance) until the patient indicated paresthesia and tension overlapping the distribution of the patient?s typical region of pain. The stimulating probe was removed from the introducer and a percutaneous lead was guided through the needle and delivered to a location in similar proximity to the nerve. Final location was verified with electrical stimulation and documented. The introducer needle was removed, and the exposed end of the percutaneous lead was attached to an external stimulator unit. Various electrical parameter combinations were again tested until the patient indicated paresthesia and muscle tension overlapping the distribution of the patient?s typical region of pain. After confirming that lead impedance was in the normal range, the external unit was detached, the needle was removed, and the lead was anchored at the skin. The lead was threaded into the connector block and electrical continuity and desired patient response was confirmed. The connector block was attached to the external stimulator unit. The site was covered with a sterile occlusive dressing. A final ultrasound image was taken to document final placement. The patient was observed for stability of vital signs and comfort.
== END 2022-09-25 14:30 | disposition home or self-care (01) ==
PROVIDERS: PCP General Practice; Visit Provider Internal Medicine
PROC: (CPT 64555; principal; 2022-09-25 12:10)
DX: G54.6 Phantom limb syndrome with pain (principal); Z89.611 Acquired absence of right leg above knee; I82.411 Acute embolism and thrombosis of right femoral vein; K50.90 Crohn's disease, unspecified, without complications; I73.9 Peripheral vascular disease, unspecified; B20 Human immunodeficiency virus [HIV] disease; B19.20 Unspecified viral hepatitis C without hepatic coma; Z79.899 Other long term (current) drug therapy; Z79.01 Long term (current) use of anticoagulants; Z88.0 Allergy status to penicillin; F19.10 Other psychoactive substance abuse, uncomplicated; Z87.19 Personal history of other diseases of the digestive system; Z90.49 Acquired absence of other specified parts of digestive tract
CPT/HCPCS: 64555; C1778; J2250; J3010

== ENCOUNTER → 2022-09-27 12:45 | Outpatient (BNVA) | payer MEDICAID, SELFPAY | PROVIDERS: PCP General Practice; Visit Provider Internal Medicine ==

== ENCOUNTER → 2022-10-04 11:10 | Outpatient (BNVA) | payer MEDICAID, SELFPAY | PROVIDERS: PCP General Practice; Visit Provider Internal Medicine | DX: Z48.00 Encounter for change or removal of nonsurgical wound dressing (principal) | CPT/HCPCS: 99211 ==

== ENCOUNTER → 2022-10-11 10:57 | Outpatient (BNVA) | payer MEDICAID, SELFPAY | PROVIDERS: PCP General Practice; Visit Provider Internal Medicine | DX: Z48.00 Encounter for change or removal of nonsurgical wound dressing (principal) | CPT/HCPCS: 99211 ==

== ENCOUNTER → 2022-10-18 10:55 | Outpatient (BNVA) | payer MEDICAID, SELFPAY | PROVIDERS: PCP General Practice; Visit Provider Internal Medicine ==

== ENCOUNTER → 2022-10-25 11:21 | Outpatient (BNVA) | payer MEDICAID, SELFPAY | PROVIDERS: PCP General Practice; Visit Provider Internal Medicine | DX: G54.6 Phantom limb syndrome with pain (principal); I73.9 Peripheral vascular disease, unspecified; I82.411 Acute embolism and thrombosis of right femoral vein; B20 Human immunodeficiency virus [HIV] disease; B19.20 Unspecified viral hepatitis C without hepatic coma; Z99.3 Dependence on wheelchair; Z89.611 Acquired absence of right leg above knee | CPT/HCPCS: 99212 ==

== ENCOUNTER 2022-11-01 09:57 | Outpatient (AMB) | payer MEDICAID, SELFPAY ==
--- NOTE | 2022-11-01 10:08 | A.OFFVIS_ITS ---
Intake Vital Signs 11/01/22 10:09 BP 134/86 Blood Pressure Location Lt brachial Position Sitting Respiration 16 Pulse 88 Pulse Source Pulse Oximeter Pulse Oximetry (%) 94 Oxygen Delivery Method Room Air Intake Visit Reasons: Sprint Removal Allergies Penicillins [PENICILLINS] Allergy (Severe, Verified 11/01/22 10:09) SWELLING shellfish derived [SHELLFISH DERIVED] Allergy (Severe, Verified 11/01/22 10:09) SWELLING CHOCOLATE Allergy (Severe, Uncoded 09/09/22 11:26) SWELLING HPI Sprint Removal HPI Details 57-year-old male presenting today for his femoral PNS removal. He still has 4 weeks of therapy left for the sciatic component. Past Procedures: 10/02/22: Peripheral Nerve Stimulation Temporary Lead Placement, Ultrasound- Guided, Sciatic Nerve, Right: 60-70% relief while wearing the device 09/04/22: Peripheral Nerve Stimulation Temporary Lead Placement, Ultrasound- Guided, Femoral Nerve, Right: 50% relief while wearing the device [facility] Medical History Acute deep vein thrombosis (DVT) of right femoral vein Amputation of leg, right, traumatic Ankle fracture, left Closed fracture of phalanx of second toe Crohn's disease Depression DVT (deep venous thrombosis) Fracture of left great toe Hepatitis C HIV (human immunodeficiency virus infection) PAD (peripheral artery disease) Personal history of nicotine dependence Substance abuse Surgical History History of cochlear implant History of colonoscopy History of laparoscopic cholecystectomy History of liver biopsy History of right above knee amputation History of surgery Family History (Updated 03/18/22 @ 05:14 by Tarik Carlton MD) Other No family history of coronary artery disease Social History Household Members: Spouse and Family Housing: Apartment Are you a primary home care liaison to a significant other at home: No Do you presently have visiting nurse or other home services: No Alcohol intake: never Patient Tobacco Use Status: Current everyday Tobacco user Tobacco use type: Cigarette Cigarettes Per Day: 2 Years Smoked: (onset 16, 1/2-1ppd x 38yrs, 30pyh, quit 01/01/2020) Second Hand Smoke Exposure: Yes Substance Use Type: Marijuana service: No Current occupational status: unemployed Gender identity: Male Review of Systems Const All systems reviewed & are unremarkable except as noted in HPI and below Physical Exam Vital Signs: Last Vital Signs Pulse 88 11/01/22 10:09 Resp 16 11/01/22 10:09 BP 134/86 11/01/22 10:09 Pulse Ox 94 11/01/22 10:09 Oxygen Delivery Method Room Air 11/01/22 10:09 General: Appears afebrile. Alert and oriented. Mood and affect appropriate. Follows and participates in conversation appropriately. Respiratory effort is unlabored. Able to transition from sit to stand unassisted. Ambulates with bilaterally normal heel strike and toe off. Femoral lead removed with tip intact. Site is clean dry and intact. Results Reviewed Results Reviewed: No imaging is available for review. Assessment & Plan Assessment & Plan (1) Phantom limb pain: Code(s): G54.6 - Phantom limb syndrome with pain Plan 1. The femoral lead was removed with tip intact. Site is clean, dry and intact. The external generator was moved closer to sciatic site to prevent disconnection from excessive tension. The patient will follow up in four weeks for removal of sciatica lead. 2. If pain symptoms return after removal of the sciatic lead, we will consider an implant of permanent nerve stimulator. Scribed for Dr. Haro by Carlton Boyle, medical resident, on 11/01/2022. I, Dr. Haro, have personally reviewed and agree with the information entered by the scribe. Coding Level of Care Code Est Pt Level 3 (27535) Diagnoses Phantom limb pain G54.6
[2022-11-01 10:09] VITALS: BP 134/86; PULSE 88; RESP 16; O2SAT 94
== END 2022-11-01 10:29 | disposition home or self-care (01) ==
PROVIDERS: PCP General Practice; Visit Provider Internal Medicine
DX: G54.6 Phantom limb syndrome with pain (principal)
CPT/HCPCS: 99213

== ENCOUNTER → 2022-11-01 09:57 | Outpatient (BNVA) | payer MEDICAID, SELFPAY | PROVIDERS: PCP General Practice; Visit Provider Internal Medicine | DX: G54.6 Phantom limb syndrome with pain (principal) | CPT/HCPCS: 99212 ==

== ENCOUNTER → 2022-11-08 13:28 | Outpatient (BNVA) | payer MEDICAID, SELFPAY | PROVIDERS: PCP General Practice; Visit Provider Internal Medicine ==

== ENCOUNTER → 2022-11-15 10:56 | Outpatient (BNVA) | payer MEDICAID, SELFPAY | PROVIDERS: PCP General Practice; Visit Provider Internal Medicine ==

== ENCOUNTER 2022-12-08 05:47 | Emergency (ER) | payer MEDICAID, SELFPAY ==
[2022-12-08] VITALS (8 sets, daily range): BP systolic 98–140; BP diastolic 61–72; PULSE 63–93; RESP 16–22; TEMP 36.6; O2SAT 92–97; BMI 24.5
--- NOTE | 2022-12-08 06:06 | MHC.EDTECH ---
Patient came in by ambulance, patient was changed into hospital attire,vitals were taken and call vogel within reach
--- NOTE | 2022-12-08 06:48 | ED_ITS ---
HPI - General Adult General Chief complaint: General Medical Stated complaint: nerve pain to rt leg at amputation site Time Seen by Provider: 12/08/22 06:47 Source: patient Mode of arrival: EMS Limitations: no limitations History of Present Illness HPI narrative: 57-year-old male with past medical history of DVT, hepatitis-C, HIV, right leg amputation, presenting to the ED complaining of pain in his right lower e xtremity amputation area. The patient states that he developed pain and he feels like it is in his leg that is no longer there. He states the pain is a constant, sharp, pain which is 10/10. He states he has been taking gabapentin and ibuprofen without any relief his pain. Patient states that he could not tolerate the pain so she called an ambulance was brought to emergency department for evaluation. States the pain started at 04:30 hours and has been constant since that time. Related Data Home Medications Medication Instructions Recorded Confirmed acetaminophen 650 mg 1 tab PO Q6H PRN Pain 03/18/22 09/19/22 tablet,extended release bictegravir 50 mg-emtricitabine 1 tab PO BEDTIME 03/18/22 09/19/22 200 mg-tenofovir alafenam 25 mg tablet (Biktarvy) docusate sodium 100 mg capsule 1 cap PO BID PRN constipation 03/18/22 09/19/22 gabapentin 400 mg capsule 1 cap PO TID 03/18/22 09/19/22 melatonin 5 mg tablet 1 tab PO BEDTIME 03/18/22 09/19/22 methocarbamol 500 mg tablet 1 tab PO QID PRN pain 03/18/22 09/19/22 mirtazapine 15 mg tablet 1 tab PO BEDTIME 03/18/22 09/19/22 multivitamin 1 tab PO QAM 03/18/22 09/19/22 omeprazole 20 mg capsule,delayed 1 cap PO QAM 03/18/22 09/19/22 release paroxetine HCl 20 mg tablet 1 tab PO BEDTIME 03/18/22 09/19/22 sulfamethoxazole 400 1 tab PO QAM 03/18/22 09/09/22 mg-trimethoprim 80 mg tablet sumatriptan succinate 50 mg tablet 50 mg PO DAILY PRN Migraine 03/18/22 09/19/22 Headache Previous Rx's Medication Instructions Recorded apixaban 5 mg (74 tabs) tablets in 5 mg PO BID #74 ea 10/22/21 a dose pack (Eliquis DVT-PE Treat 30D Start) acetaminophen 500 mg tablet 500 mg PO Q6H PRN fever or pain 12/08/22 (Tylenol Extra Strength) #30 tabs morphine 15 mg immediate release 15 mg PO Q4-6H PRN pain #14 tabs 12/08/22 tablet Allergies Allergy/AdvReac Type Severity Reaction Status Date / Time Penicillins [PENICILLINS] Allergy Severe SWELLING Verified 11/08/22 13:35 shellfish derived Allergy Severe SWELLING Verified 11/08/22 13:35 [SHELLFISH DERIVED] CHOCOLATE Allergy Severe SWELLING Uncoded 09/09/22 11:26 Review of Systems Review of Systems: Yes all other systems are reviewed and are negative [facility] Past Medical History [facility] Narrative: Social history: He denies tobacco, alcohol and drug use. Medical History Acute deep vein thrombosis (DVT) of right femoral vein Amputation of leg, right, traumatic Ankle fracture, left Closed fracture of phalanx of second toe Crohn's disease Depression DVT (deep venous thrombosis) Fracture of left great toe Hepatitis C HIV (human immunodeficiency virus infection) PAD (peripheral artery disease) Personal history of nicotine dependence Substance abuse Surgical History History of cochlear implant History of colonoscopy History of laparoscopic cholecystectomy History of liver biopsy History of right above knee amputation History of surgery Family History Family History Other No family history of coronary artery disease Social History Social History Household Members: Spouse and Family Housing: Apartment Are you a primary college and career counselor to a significant other at home: No Do you presently have visiting nurse or other home services: No Alcohol intake: former Patient Tobacco Use Status: Current everyday Tobacco user Tobacco use type: Cigarette Cigarettes Per Day: 2 Years Smoked: (onset 16, 1/2-1ppd x 38yrs, 30pyh, quit 01/01/2020) Smoked in Last 30 Days: No Second Hand Smoke Exposure: Yes Use of substances other than those prescribed or required for medical reasons: No Substance Use Type: Marijuana Advance Directives: No service: No Current occupational status: unemployed Gender identity: Male Physical Exam ED Vital Signs: Vital Signs - 24 hr 12/08/22 05:54 12/08/22 06:54 12/08/22 07:29 Temperature 97.9 F 97.9 F Pulse Rate 80 83 Respiratory Rate 20 20 22 H Blood Pressure 117/67 117/67 Pulse Oximetry 92 94 Oxygen Delivery Method Room Air Room Air Oxygen Flow Rate 12/08/22 08:46 Temperature Pulse Rate 65 Respiratory Rate 16 Blood Pressure 118/61 Pulse Oximetry 97 Oxygen Delivery Method Nasal Cannula Oxygen Flow Rate 2 BMI result Body Mass Index 24.5 Vital signs were normal. Exam: General: Awake, alert in no distress, he has occasional episodes of very severe pain which then caused him to hold on to his right amputation stump. Head: Normocephalic, atraumatic EENT: PERRL, Lids normal, sclera normal, conjunctiva normal, nose normal , ears normal, throat without erythema or exudates Neck: Supple, no adenopathy, trachea midline and nontender Lung: breath sounds symmetric, no wheezing, rales or rhonchi Chest: symmetric movement, nontender Heart: regular rate and rhythm, normal S1, S2 no murmurs or rubs Abdomen: soft, non-tender, nondistended, normal bowel sounds Back: no vertebral tenderness, no CVAT Extremities: Right above the knee amputation, stump appears normal with no erythema or increased warmth Skin: no rashes, no lesion, normal color and warmth Neuro: Awake, alert, oriented, normal speech, cranial nerves intact, normal strength in the left lower extremity Psych: Pleasant, cooperative Medications Administered Discontinued Medications Generic Name Dose Route Start Last Admin Trade Name Camdenq PRN Reason Stop Dose Admin Ketorolac Tromethamine 15 mg 12/08/22 06:54 12/08/22 07:29 Ketorolac Tromethamine 15 Mg/Ml Vial IVPUSH 12/08/22 06:55 15 mg ONCE STA Administration Morphine Sulfate 4 mg 12/08/22 06:54 12/08/22 07:29 Morphine Sulfate 4 Mg/Ml Cartridge IVPUSH 12/08/22 06:55 4 mg ONCE STA Administration Protocol Morphine Sulfate 4 mg 12/08/22 08:12 12/08/22 08:49 Morphine Sulfate 4 Mg/Ml Cartridge IVPUSH 12/08/22 08:13 4 mg ONCE STA Administration Protocol Medical Decision Making Medical Decision Making MDM Narrative: 57-year-old male who presents emergency department for evaluation of phantom pain syndrome with pain in his right stump area. The pain came on suddenly at 04:30 hours, the pain is been sharp, 10/10 and constant. The patient did appear to be in distress secondary to his pain. His exam was otherwise unremarkable. Patient was treated with morphine 4 mg IV x 3 doses and Toradol 15 mg IV with some improvements pain. The patient will be discharged home with morphine 4 mg every 4-6 hours as needed for pain. He was also advised to continue taking his gabapentin and to take Tylenol for pain. Patient is on Eliquis and I told him that he should not take NSAIDs while he is taking Eliquis. Differential Diagnosis Differential Diagnoses: The differential diagnosis associated with the presentation includes Differential diagnosis includes was not limited to cellulitis, phantom pain syndrome External Record Review External record reviewed: Other ([place] prescription monitoring program- patient has received no prescriptions for narcotics, gabapentin prescribed regularly) Prescription Management I considered prescription management with: Pain Medication Chronic Conditions Patient?s care impacted by: Other (HIV) Discharge Plan Discharge Clinical Impression: Phantom pain after amputation of lower extremity Patient Disposition: Home, Self-Care Additional Instructions: Take Tylenol (acetaminophen) 2 pills every 4-6 hours as needed for pain. For pain not relieved by Tylenol take morphine 15 mg pills, 1 pill every 4 hours as needed for pain. This medication will make you sleepy, do not drive or work while taking this medication. Morphine is a narcotic medication and can be addicting. If you are concerned about addiction you can ask the pharmacist for less pills or do not get this pre scription filled. Continue taking gabapentin as prescribed Follow-up with your doctor in 2 days. Please return to the emergency department if your symptoms get worse or if you develop any symptoms that are concerning to you. You are on the blood thinner Eliquis. While you are taking Eliquis you cannot take any nonsteroidal anti- inflammatory(NSAIDS) medications such as ibuprofen, Advil, Motrin, Aleve or naproxen. These medications can cause stomach ulcers and if you get a bleeding stomach ulcer on Eliquis you could get severely anemic and . Prescriptions: New acetaminophen [Tylenol Extra Strength] 500 mg tablet 500 mg PO Q6H PRN (Reason: fever or pain) Qty: 30 0RF morphine 15 mg tablet 15 mg PO Q4-6H PRN (Reason: pain) Qty: 14 0RF Rx Instructions: Patient may request partial fill; Partial Fill upon patient request. No Action multivitamin Tablet 1 tab PO QAM methocarbamol 500 mg tablet 1 tab PO QID PRN (Reason: pain) sulfamethoxazole-trimethoprim 400-80 mg tablet 1 tab PO QAM gabapentin 400 mg capsule 1 cap PO TID sumatriptan succinate 50 mg tablet 50 mg PO DAILY PRN (Reason: Migraine Headache) acetaminophen 650 mg tablet extended release 1 tab PO Q6H PRN (Reason: Pain) paroxetine HCl 20 mg tablet 1 tab PO BEDTIME docusate sodium 100 mg capsule 1 cap PO BID PRN (Reason: constipation) omeprazole 20 mg capsule,delayed release(DR/EC) 1 cap PO QAM mirtazapine 15 mg tablet 1 tab PO BEDTIME melatonin 5 mg tablet 1 tab PO BEDTIME Biktarvy 50-200-25 mg tablet 1 tab PO BEDTIME Eliquis DVT-PE Treat 30D Start 5 mg (74 tabs) tablets,dose pack 5 mg PO BID Qty: 74 0RF
--- NOTE | 2022-12-08 06:56 | PC.NURSE ---
PT arrived via ems from home with complaints of phantom right leg pain 02/04. Vss. call vogel within reach. plan of care ongoing
[2022-12-08] MEDS: Morphine Sulfate 4 MG/ML CARTRIDGE IVPUSH ×3 (07:29→10:03)
[2022-12-08] MEDS: Ketorolac Tromethamine 15 MG/ML VIAL IVPUSH (07:29)
--- NOTE | 2022-12-08 10:17 | PC.NURSE ---
pt axox4, bp soft; 100/62; respirations even and unlabored, sats 94% on 1L NC; pt denies dizziness/sob/cp. dr. heaton aware. will reassess for discharge needs in 45 mins. all needs met at this time; call vogel within reach.
== END 2022-12-08 10:54 | disposition home or self-care (01) ==
PROVIDERS: Emergency Provider Emergency Medicine Emergency Medical Services; PCP General Practice
DX: G54.6 Phantom limb syndrome with pain (principal); M79.604 Pain in right leg; F17.210 Nicotine dependence, cigarettes, uncomplicated; Z79.899 Other long term (current) drug therapy; Z71.6 Tobacco abuse counseling
CPT/HCPCS: 96374; 96375; 96376; 99284; J1885; J2270

== ENCOUNTER → 2022-12-20 11:15 | Outpatient (BNVA) | payer MEDICAID, SELFPAY | PROVIDERS: PCP General Practice; Visit Provider Internal Medicine | DX: G54.6 Phantom limb syndrome with pain (principal) | CPT/HCPCS: 99212 ==

== ENCOUNTER 2022-12-20 11:16 | Outpatient (AMB) | payer MEDICAID, SELFPAY ==
[2022-12-20 11:15] VITALS: BP 136/80; PULSE 63; RESP 14; O2SAT 98; BMI 25.4
--- NOTE | 2022-12-20 11:15 | MHC.OFFVIS ---
Intake Vital Signs 12/20/22 11:15 Height 5 ft 7 in Weight 162 lb BMI 25.4 BP 136/80 Blood Pressure Location Rt brachial Position Sitting Respiration 14 Pulse 63 Pulse Source Pulse Oximeter Pulse Oximetry (%) 98 Oxygen Delivery Method Room Air Intake Visit Reasons: Possible procedure discussion Allergies Penicillins [PENICILLINS] Allergy (Severe, Verified 12/20/22 11:17) SWELLING shellfish derived [SHELLFISH DERIVED] Allergy (Severe, Verified 12/20/22 11:17) SWELLING CHOCOLATE Allergy (Severe, Uncoded 12/20/22 11:17) SWELLING Medication List - Last Reconciled 12/20/22 by Kendra Davison LPN acetaminophen (Tylenol Extra Strength) 500 mg PO Q6H PRN apixaban (Eliquis DVT-PE Treat 30D Start) 5 mg PO BID [id number] ala 50-200-25 mg (Biktarvy) 1 tab PO BEDTIME docusate sodium 1 cap PO BID PRN gabapentin 1 cap PO TID melatonin 1 tab PO BEDTIME methocarbamol 1 tab PO QID PRN mirtazapine 1 tab PO BEDTIME morphine 15 mg PO Q4-6H PRN multivitamin 1 tab PO QAM omeprazole 1 cap PO QAM paroxetine HCl 1 tab PO BEDTIME sulfamethoxazole-trimethoprim 400-80 mg 1 tab PO QAM sumatriptan succinate 50 mg PO DAILY PRN HPI Possible procedure discussion HPI Details 57-year-old male is presenting today for a possible procedure discussion. The patient reports no resolution of his pain symptoms. He is presenting today for discussion of possible permanent treatment options. Past Procedures: 10/02/22: Peripheral Nerve Stimulation Temporary Lead Placement, Ultrasound-Guided, Sciatic Nerve, Right: 60-70% relief while wearing the device 09/04/22: Peripheral Nerve Stimulation Temporary Lead Placement, Ultrasound-Guided, Femoral Nerve, Right: 50% relief while wearing the device. [facility] Medical History (Updated 12/26/22 @ 14:29 by Pablito Haro MD) Acute deep vein thrombosis (DVT) of right femoral vein Amputation of leg, right, traumatic Ankle fracture, left Closed fracture of phalanx of second toe Crohn's disease Depression DVT (deep venous thrombosis) Fracture of left great toe Hepatitis C HIV (human immunodeficiency virus infection) PAD (peripheral artery disease) Personal history of nicotine dependence Phantom limb pain Substance abuse Surgical History History of cochlear implant History of colonoscopy History of laparoscopic cholecystectomy History of liver biopsy History of right above knee amputation History of surgery Family History Other No family history of coronary artery disease Social History Household Members: Spouse and Family Housing: Apartment Are you a primary day care home mother to a significant other at home: No Do you presently have visiting nurse or other home services: No Alcohol intake: former Patient Tobacco Use Status: Current everyday Tobacco user Tobacco use type: Cigarette Cigarettes Per Day: 2 Years Smoked: (onset 16, 1/2-1ppd x 38yrs, 30pyh, quit 01/01/2020) Second Hand Smoke Exposure: Yes Substance Use Type: Marijuana service: No Current occupational status: unemployed Gender identity: Male Review of Systems Const All systems reviewed & are unremarkable except as noted in HPI and below Physical Exam Vital Signs: Last Vital Signs Pulse 63 12/20/22 11:15 Resp 14 12/20/22 11:15 BP 136/80 12/20/22 11:15 Pulse Ox 98 12/20/22 11:15 Oxygen Delivery Method Room Air 12/20/22 11:15 BMI result Body Mass Index 25.4 General: Appears afebrile. Alert and oriented. Mood and affect appropriate. Follows and participates in conversation appropriately. Respiratory effort is unlabored. Able to transition from sit to stand unassisted. Ambulates with bilaterally normal heel strike and toe off. Results Reviewed Results Reviewed: No imaging is available for review. Assessment & Plan Assessment & Plan (1) Amputation stump pain: Code(s): T87.89 - Other complications of amputation stump; M79.609 - Pain in unspecified limb (2) Phantom limb pain: Code(s): G54.6 - Phantom limb syndrome with pain Plan Discussed implantable peripheral nerve stimulation therapy using an external antenna as well as a system with an implanted IPG. Patient is not interested in wearing external devices and prefers a completely implanted system with an IPG insitu. Alternatively we can place a dorsal column spinal cord stimulator targeted towards the right side lumbar DRGs. Will place a referral for psychology clearance. Once we have received psychology clearance, we will plan for implanted IPG for peripheral nerve stimulation. The patient will receive a call from [facility] for the psychology assessment. He has previously exhausted oral morphine therapy, temporary peripheral nerve stimulation. Scribed for Dr. Haro by Carlton Boyle, medical administrator, on 12/20/2022. I, Dr. Haro, have personally reviewed and agree with the information entered by the scribe. Coding Level of Care Code Est Pt Level 3 (23568) Diagnoses Amputation stump pain T87.89; M79.609 Phantom limb pain G54.6
== END 2022-12-20 11:38 | disposition home or self-care (01) ==
PROVIDERS: PCP General Practice; Visit Provider Internal Medicine
DX: T87.89 Other complications of amputation stump (principal); M79.609 Pain in unspecified limb; G54.6 Phantom limb syndrome with pain
CPT/HCPCS: 99213

== ENCOUNTER 2023-01-01 19:30 | Emergency (ER) | payer MEDICAID, SELFPAY ==
[2023-01-01 19:39] VITALS: BP 136/104; PULSE 71; PULSE 87; RESP 18; TEMP 36.3; O2SAT 96; BMI 26.6
--- NOTE | 2023-01-01 19:55 | ED.GENADULT ---
HPI - General Adult General Chief complaint: General Medical Stated complaint: Nerve Pain Time Seen by Provider: 01/01/23 19:55 Source: patient Mode of arrival: ambulatory Limitations: no limitations History of Present Illness HPI narrative: Patient is status post traumatic AKA right leg in 2020 ran out of his morphine tablets plan to see pain clinic next week having pain in the phantom leg. No open wound no fever no chills Related Data Home Medications Medication Instructions Recorded Confirmed bictegravir 50 mg-emtricitabine 1 tab PO BEDTIME 03/18/22 12/20/22 200 mg-tenofovir alafenam 25 mg tablet (Biktarvy) docusate sodium 100 mg capsule 1 cap PO BID PRN constipation 03/18/22 12/20/22 gabapentin 400 mg capsule 1 cap PO TID 03/18/22 12/20/22 melatonin 5 mg tablet 1 tab PO BEDTIME 03/18/22 12/20/22 methocarbamol 500 mg tablet 1 tab PO QID PRN pain 03/18/22 12/20/22 mirtazapine 15 mg tablet 1 tab PO BEDTIME 03/18/22 12/20/22 multivitamin 1 tab PO QAM 03/18/22 12/20/22 omeprazole 20 mg capsule,delayed 1 cap PO QAM 03/18/22 12/20/22 release paroxetine HCl 20 mg tablet 1 tab PO BEDTIME 03/18/22 12/20/22 sulfamethoxazole 400 1 tab PO QAM 03/18/22 12/20/22 mg-trimethoprim 80 mg tablet sumatriptan succinate 50 mg tablet 50 mg PO DAILY PRN Migraine 03/18/22 12/20/22 Headache Previous Rx's Medication Instructions Recorded apixaban 5 mg (74 tabs) tablets in 5 mg PO BID #74 ea 10/22/21 a dose pack (Eliquis DVT-PE Treat 30D Start) acetaminophen 500 mg tablet 500 mg PO Q6H PRN fever or pain 12/08/22 (Tylenol Extra Strength) #30 tabs morphine 15 mg immediate release 15 mg PO Q4-6H PRN pain #14 tabs 12/08/22 tablet morphine 15 mg immediate release 15 mg PO Q8H PRN pain #20 tabs 01/01/23 tablet Allergies Allergy/AdvReac Type Severity Reaction Status Date / Time Penicillins [PENICILLINS] Allergy Severe SWELLING Verified 12/20/22 11:17 shellfish derived Allergy Severe SWELLING Verified 12/20/22 11:17 [SHELLFISH DERIVED] CHOCOLATE Allergy Severe SWELLING Uncoded 12/20/22 11:17 Review of Systems Review of Systems: Yes all other systems are reviewed and are negative [facility] Past Medical History Medical History Acute deep vein thrombosis (DVT) of right femoral vein Amputation of leg, right, traumatic Ankle fracture, left Closed fracture of phalanx of second toe Crohn's disease Depression DVT (deep venous thrombosis) Fracture of left great toe Hepatitis C HIV (human immunodeficiency virus infection) PAD (peripheral artery disease) Personal history of nicotine dependence Phantom limb pain Substance abuse Surgical History History of cochlear implant History of colonoscopy History of laparoscopic cholecystectomy History of liver biopsy History of right above knee amputation History of surgery Family History Family History Other No family history of coronary artery disease Social History Social History Household Members: Spouse and Family Housing: Apartment Are you a primary adult care provider to a significant other at home: No Do you presently have visiting nurse or other home services: No Alcohol intake: former Patient Tobacco Use Status: Current everyday Tobacco user Tobacco use type: Cigarette Cigarettes Per Day: 2 Years Smoked: (onset 16, 1/2-1ppd x 38yrs, 30pyh, quit 01/01/2020) Second Hand Smoke Exposure: Yes Substance Use Type: Marijuana Advance Directives: No Advance Directives Information Provided: No service: No Current occupational status: unemployed Gender identity: Male Physical Exam ED Vital Signs: Vital Signs - 24 hr 01/01/23 19:39 Temperature 97.3 F Pulse Rate 87 Respiratory Rate 18 Pulse Oximetry 96 Oxygen Delivery Method Room Air BMI result Body Mass Index 26.6 Appearance: Alert. Oriented X3. No acute distress. Neck: Normal inspection. Neck supple. CVS: Normal heart rate and rhythm. Pulses normal. Respiratory: No respiratory distress. Equal air entry bilateral, Abdomen: Soft and nontender. Bowel sounds are present, no mass palpable, no CVA tenderness Skin: Skin warm and dry. Normal skin color. Normal skin turgor. Extremities: No lower extremity edema. No calf tenderness right AKA Neuro: Oriented X 3. No motor deficit. No sensory deficit.No cerebellar signs , cranial nerves II-XII intact Medications Administered Discontinued Medications Generic Name Dose Route Start Last Admin Trade Name Freq PRN Reason Stop Dose Admin Morphine Sulfate 15 mg 01/01/23 20:10 01/01/23 20:29 Morphine Sulfate Immed Release 15 Mg Tablet PO 01/01/23 20:11 15 mg ONCE ONE Administration Medical Decision Making Medical Decision Making [facility] Narrative: Patient with phantom leg pain will discharge patient home on morphine tablets patient plan to see pain clinic Discharge Plan Discharge Clinical Impression: Phantom limb pain Patient Disposition: Home, Self-Care Instructions: Chronic Pain (ED) Additional Instructions: Take morphine tablets as prescribed follow with pain clinic as scheduled Prescriptions: New morphine 15 mg tablet 15 mg PO Q8H PRN (Reason: pain) Qty: 20 0RF Rx Instructions: Partial Fill upon patient request. No Action multivitamin Tablet 1 tab PO QAM methocarbamol 500 mg tablet 1 tab PO QID PRN (Reason: pain) sulfamethoxazole-trimethoprim 400-80 mg tablet 1 tab PO QAM gabapentin 400 mg capsule 1 cap PO TID sumatriptan succinate 50 mg tablet 50 mg PO DAILY PRN (Reason: Migraine Headache) paroxetine HCl 20 mg tablet 1 tab PO BEDTIME docusate sodium 100 mg capsule 1 cap PO BID PRN (Reason: constipation) omeprazole 20 mg capsule,delayed release(DR/EC) 1 cap PO QAM mirtazapine 15 mg tablet 1 tab PO BEDTIME melatonin 5 mg tablet 1 tab PO BEDTIME Biktarvy 50-200-25 mg tablet 1 tab PO BEDTIME Eliquis DVT-PE Treat 30D Start 5 mg (74 tabs) tablets,dose pack 5 mg PO BID Qty: 74 0RF acetaminophen [Tylenol Extra Strength] 500 mg tablet 500 mg PO Q6H PRN (Reason: fever or pain) Qty: 30 0RF morphine 15 mg tablet 15 mg PO Q4-6H PRN (Reason: pain) Qty: 14 0RF Rx Instructions: Patient may request partial fill; Partial Fill upon patient request.
[2023-01-01] MEDS: Morphine Sulfate Immed Release 15 MG TABLET PO (20:29)
[2023-01-01 20:59] VITALS: BP 122/81; PULSE 65; RESP 20; TEMP 36.4; O2SAT 94
--- NOTE | 2023-01-01 21:05 | PC.NURSE ---
RN reassessed pain at this time, patient upset regarding being given pain medication that isn't working immediately. Patient requesting to leave, states I will hop out . RN able to calm patient and patient agreed to VS as documented, will continue to assess patient per MD orders.
== END 2023-01-01 22:02 | disposition home or self-care (01) ==
PROVIDERS: Emergency Provider Internal Medicine
DX: G54.6 Phantom limb syndrome with pain (principal); Z89.611 Acquired absence of right leg above knee
CPT/HCPCS: 99283; 99284

== ENCOUNTER 2023-01-22 13:32 | Outpatient (REF) | payer MEDICAID, SELFPAY ==
[2023-01-22 15:57] LABS: MANUAL DIFF FLAG NO
[2023-01-22 16:08] LABS: Basophils Percent Auto 0.5 % (0-2); Eosinophils Absolute Auto 0.1 X10*3/uL (0.0-0.4); Eosinophils Percent Auto 2.3 % (0-4); Hematocrit 43.2 % (42.0-52.0); Hemoglobin 13.7 g/dl (14.0-18.0); Imm Gran Abs Auto 0.01 X10*3/uL (0.00-0.03); Imm Gran Pct Auto 0.2 % (0.0-0.4); Lymphocytes Absolute Auto 0.8 X10*3/uL (1.2-4.9); Lymphocytes Percent Auto 14.6 % (20-40); Mean Corpuscular HGB Conc 31.7 g/dl (31.0-36.0); Mean Corpuscular Hemoglobin 27.7 pg (27.0-33.0); Mean Corpuscular Volume 87.4 fL (80.0-98.0); Mean Platelet Volume 10.9 fL (9.4-12.4); Monocytes Absolute Auto 0.4 X10*3/uL (0.1-1.2); Monocytes Percent Auto 6.8 % (2-11); Neutrophils Absolute Auto 4.3 x10*3/uL (2.0-8.3); Neutrophils Percent Auto 75.6 % (45-73); Platelet Count 271 X10*3/uL (160-400); Red Blood Count 4.94 X10*6/uL (4.60-5.80); Red Cell Distribution Width 12.8 % (11.0-16.0); White Blood Count 5.7 X10*3/uL (4.8-10.8)
[2023-01-22 16:16] LABS: Alanine Aminotransferase 17 U/L (0-40); Albumin Level 4.5 g/dL (3.5-5.0); Alkaline Phosphatase 181 U/L (39-117); Anion Gap 12 (12-20); Aspartate Amino Transferase 28 U/L (5-37); Bilirubin Total 0.6 mg/dL (0.0-1.0); Blood Urea Nitrogen 17 mg/dL (9-16); Calcium 9.4 mg/dL (8.4-10.2); Carbon Dioxide 30 mmol/L (22-29); Chloride 102 mmol/L (96-108); Estimated Glomerular Filt Rate > 60; Glucose Random 101 mg/dL (60-115); Potassium 3.8 mmol/L (3.3-5.1); Sodium 140 mmol/L (135-145); Total Protein 8.2 g/dL (6.5-8.0)
[2023-01-23 11:48] LABS: Absolute CD3 Count 429 cells/uL (840-3060); Absolute CD4 Count 136 cells/uL (490-1740); Absolute CD8 Count 291 cells/uL (180-1170); Absolute Lymphocytes 859 cells/uL (850-3900); CD4 CD8 Ratio 0.47 (0.86-5.00); Percent CD3 Cells 50 % (57-85); Percent CD4 Cells 16 % (30-61); Percent CD8 Cells 34 % (12-42)
[2023-01-23 15:43] LABS: HIV RNA PCR Qn Copies 52 copies/mL (NOT DETECTED); HIV RNA PCR Qn Log Copies 1.72 (NOT DETECTED)
== END 2023-01-22 13:33 | disposition home or self-care (01) ==
LOC: HO.HHCL 13:32
PROVIDERS: Visit Provider Student in an Organized Health Care Education/Training Program
DX: B20 Human immunodeficiency virus [HIV] disease (principal)
CPT/HCPCS: 36415; 80053; 85025; 86359; 86360; 87536

== ENCOUNTER 2023-02-13 09:48 | Emergency (ER) | payer MEDICAID, SELFPAY ==
--- NOTE | ~2023-02-13 | XR_ITS ---
EXAMINATION: XR CHEST CLINICAL INFORMATION: Cough. COMPARISON: None available. TECHNIQUE: 2 views of the chest were obtained. FINDINGS: No significant abnormality is noted involving the heart, lungs, mediastinum, bony thorax or soft tissues. XR/XR chest 2V IMPRESSION: Unremarkable chest examination.
[2023-02-13 10:02] VITALS: BP 117/83; BP 142/84; PULSE 104; PULSE 107; RESP 16; TEMP 36.8; O2SAT 93; BMI 26.3
--- NOTE | 2023-02-13 10:09 | ED.URI ---
HPI - URI/Sore Throat General Chief Complaint: Upper Respiratory Symptoms Stated Complaint: GEN WEAK,FLU LIKE X2 DAYS PER EMS Time Seen by Provider: 02/13/23 10:09 Source: patient Mode of arrival: EMS Limitations: no limitations History of Present Illness HPI Narrative: 58-year-old male with history of Hep C, DVT, depression, Crohn's disease, substance abuse,asthma, HIV disease since 1984, right traumatic above the knee amputation who presented to the emergency department for evaluation Of upper respiratory illness. Patient states yesterday at work he developed a cough and was sent home. Prior to being sent home he was tested for COVID and states that he was COVID negative. He states that over the last 24 hours he has developed fever, chills, cough productive of phlegm, headache, pleuritic chest pain and body aches. He feels short of breath at rest and with exertion. States that he is feeling very fatigued. Patient has been using his albuterol inhaler 5 to 6 times a day he states usually has to use it twice a day at most. Related Data Home Medications Medication Instructions Recorded Confirmed bictegravir 50 mg-emtricitabine 1 tab PO BEDTIME 03/18/22 12/20/22 200 mg-tenofovir alafenam 25 mg tablet (Biktarvy) docusate sodium 100 mg capsule 1 cap PO BID PRN constipation 03/18/22 12/20/22 gabapentin 400 mg capsule 1 cap PO TID 03/18/22 12/20/22 melatonin 5 mg tablet 1 tab PO BEDTIME 03/18/22 12/20/22 methocarbamol 500 mg tablet 1 tab PO QID PRN pain 03/18/22 12/20/22 mirtazapine 15 mg tablet 1 tab PO BEDTIME 03/18/22 12/20/22 multivitamin 1 tab PO QAM 03/18/22 12/20/22 omeprazole 20 mg capsule,delayed 1 cap PO QAM 03/18/22 12/20/22 release paroxetine HCl 20 mg tablet 1 tab PO BEDTIME 03/18/22 12/20/22 sulfamethoxazole 400 1 tab PO QAM 03/18/22 12/20/22 mg-trimethoprim 80 mg tablet sumatriptan succinate 50 mg tablet 50 mg PO DAILY PRN Migraine 03/18/22 12/20/22 Headache Previous Rx's Medication Instructions Recorded apixaban 5 mg (74 tabs) tablets in 5 mg PO BID #74 ea 10/22/21 a dose pack (Eliquis DVT-PE Treat 30D Start) acetaminophen 500 mg tablet 500 mg PO Q6H PRN fever or pain 12/08/22 (Tylenol Extra Strength) #30 tabs morphine 15 mg immediate release 15 mg PO Q4-6H PRN pain #14 tabs 12/08/22 tablet morphine 15 mg immediate release 15 mg PO Q8H PRN pain #20 tabs 01/01/23 tablet azithromycin 250 mg tablet See Rx Instructions PO .COMPLEX #6 02/13/23 (Zithromax Z-Lucien) tabs prednisone 20 mg tablet 60 mg (3 x 20 mg) PO DAILY 5 days 02/13/23 #15 tabs Allergies Allergy/AdvReac Type Severity Reaction Status Date / Time Penicillins [PENICILLINS] Allergy Severe SWELLING Verified 12/20/22 11:17 shellfish derived Allergy Severe SWELLING Verified 12/20/22 11:17 [SHELLFISH DERIVED] CHOCOLATE Allergy Severe SWELLING Uncoded 12/20/22 11:17 Review of Systems Review of Systems: Yes all other systems are reviewed and are negative [facility] Past Medical History [facility] Narrative: social history: He is and lives with his . He denies tobacco, alcohol and drug use. Medical History Acute deep vein thrombosis (DVT) of right femoral vein Amputation of leg, right, traumatic Ankle fracture, left Closed fracture of phalanx of second toe Crohn's disease Depression DVT (deep venous thrombosis) Fracture of left great toe Hepatitis C HIV (human immunodeficiency virus infection) PAD (peripheral artery disease) Personal history of nicotine dependence Phantom limb pain Substance abuse Surgical History History of cochlear implant History of colonoscopy History of laparoscopic cholecystectomy History of liver biopsy History of right above knee amputation History of surgery Family History Family History Other No family history of coronary artery disease Social History Social History Household Members: Spouse and Family Housing: Apartment Are you a primary attending ambulatory care to a significant other at home: No Do you presently have visiting nurse or other home services: No Alcohol intake: former Patient Tobacco Use Status: Current everyday Tobacco user Tobacco use type: Cigarette Cigarettes Per Day: 2 Years Smoked: (onset 16, 1/2-1ppd x 38yrs, 30pyh, quit 01/01/2020) Second Hand Smoke Exposure: Yes Substance Use Type: Marijuana Advance Directives: No service: No Current occupational status: unemployed Gender identity: Male Physical Exam Vital Signs: Vital Signs: Last Vital Signs Temp 98.3 F 02/13/23 10:02 Pulse 107 H 02/13/23 11:44 Resp 14 02/13/23 11:44 BP 123/71 02/13/23 11:44 Pulse Ox 92 02/13/23 11:44 O2 Del Method Room Air 02/13/23 11:44 BMI result Body Mass Index 26.3 Vital signs revealed elevated heart rate of 107 otherwise unremarkable. Exam: General: Awake, alert in no distress Head: Normocephalic, atraumatic EENT: PERRL, Lids normal, sclera normal, conjunctiva normal, nose normal , ears normal, throat without erythema or exudates Neck: Supple, no adenopathy, trachea midline and nontender Lung: breath sounds symmetric, no wheezing, rales or rhonchi Chest: symmetric movement, nontender Heart: regular rate and rhythm, normal S1, S2 no murmurs or rubs Abdomen: soft, non-tender, nondistended, normal bowel sounds Back: no vertebral tenderness, no CVAT Extremities: no deformities, moves all extremities symmetrically Skin: no rashes, no lesion, normal color and warmth Neuro: Awake, alert, oriented, normal speech, cranial nerves intact, moves all extremities symmetrically Psych: Pleasant, cooperative Medications Administered Discontinued Medications Generic Name Dose Route Start Last Admin Trade Name Freq PRN Reason Stop Dose Admin Albuterol Sulfate 2.5 mg/ 0 mg 02/13/23 10:40 02/13/23 10:43 Albuterol/Ipratropium 3 ml INHALE 02/13/23 10:41 1 dose ONCE ONE Administration Prednisone 60 mg 02/13/23 10:17 02/13/23 11:16 Prednisone 20 Mg Tablet PO 02/13/23 10:18 60 mg ONCE ONE Administration Medical Decision Making Medical Decision Making [facility] Narrative: 58-year-old male with history of Hep C, DVT, depression, Crohn's disease, substance abuse,asthma, HIV disease since 1984, right traumatic above the knee amputation who presented to the emergency department for evaluation of upper respiratory illness. He states that over the last 24 hours he has developed fever, chills, cough productive of phlegm, headache, pleuritic chest pain and body aches. He feels short of breath at rest and with exertion. States that he is feeling very fatigued. Patient has been using his albuterol inhaler 5 to 6 times a day he states usually has to use it twice a day at most. 13:45 patient's laboratory evaluation from [facility]. Patient's COVID-19, influenza and RSV were negative. patient's chest x-ray was unremarkable pain patient's presentation is consistent with acute bronchitis causing asthma exacerbation. Patient was started on Zithromax Z-Lucien and prednisone 60 mg once a day for 5 days. He was given his 1st dose of these medicines here in the emergency department. He was given printed and verbal instructions and discharged home. Differential Diagnosis Differential Diagnoses: The differential diagnosis associated with the presentation includes Differential diagnosis includes was not limited to pneumonia, bronchitis, COVID-19, influenza, RSV, electrolyte abnormalities, anemia Admission/Observation Consideration of admission/observation: Escalation of care including admission/observation considered Lab Data [facility] Lab Attestation statement: I reviewed the patient's lab results. My independent interpretation patient's laboratory evaluation is as follows: CBC was normal. LFTs were normal. COVID-19, influenza and RSV were negative. 02/13/23 11:20 02/13/23 11:20 Labs: Lab Results 02/13/23 02/13/23 Range/Units 11:20 11:26 WBC 8.0 (4.8-10.8) X10*3/uL RBC 4.94 (4.60-5.80) X10*6/uL Hgb 13.6 L (14.0-18.0) g/dl Hct 42.3 (42.0-52.0) % MCV 85.6 (80.0-98.0) fL MCH 27.5 (27.0-33.0) pg MCHC 32.2 (31.0-36.0) g/dl RDW 12.9 (11.0-16.0) % Plt Count 192 D (160-400) X10*3/uL MPV 9.8 (9.4-12.4) fL Immature Gran % (Auto) 0.3 (0.0-0.4) % Neut % (Auto) 76.0 H (45-73) % Lymph % (Auto) 13.3 L (20-40) % [place] % (Auto) 7.9 (2-11) % Eos % (Auto) 2.1 (0-4) % Baso % (Auto) 0.4 (0-2) % Lymph # (Auto) 1.1 L (1.2-4.9) X10*3/uL [place] # (Auto) 0.6 (0.1-1.2) X10*3/uL Eos # (Auto) 0.2 (0.0-0.4) X10*3/uL Baso # (Auto) 0.0 (0.0-0.2) X10*3/uL Abs Immat Gran (auto) 0.02 (0.00-0.03) X10*3/uL Absolute Neuts (auto) 6.1 (2.0-8.3) x10*3/uL Absolute Nucleated RBC 0.000 (0.0-0.012) X10*3/uL Nucleated RBC % (auto) 0.0 (0.0-0.2) /100WBC ESR 20 H (0-15) MM/HR Sodium 139 (135-145) mmol/L Potassium 4.1 (3.3-5.1) mmol/L Chloride 102 (96-108) mmol/L Carbon Dioxide 26 (22-29) mmol/L Anion Gap 15 (12-20) BUN 13 (9-16) mg/dL Creatinine 0.97 (0.5-1.4) mg/dL Estim Creat Clear Calc 73.9 Estimated GFR > 60 Random Glucose 106 (60-115) mg/dL Calcium 9.9 (8.4-10.2) mg/dL Total Bilirubin 1.1 H (0.0-1.0) mg/dL AST 29 (5-37) U/L ALT 23 (0-40) U/L Alkaline Phosphatase 185 H (39-117) U/L C-Reactive Protein 5.04 H (< or = 0.50) mg/dL Total Protein 7.8 (6.5-8.0) g/dL Albumin 4.2 (3.5-5.0) g/dL Influenza Type A (PCR) NEGATIVE (Negative) Influenza Type B (PCR) NEGATIVE (Negative) RSV RNA Qual (PCR) NEGATIVE (Negative) SARS-CoV-2 RNA (RT-PCR) NEGATIVE (Negative) S. pyogenes GrpA BARBY Negative (Negative) Independent Interpretation I performed an independent interpretation of an: Plain X-Ray Interpretation: my independent interpretation patient's chest x-ray is as follows: No acute disease Radiology Impression Discussion of test interpretation with radiology: I have reviewed the radiologist's reading. Radiologist Impression: XR chest 2V IMPRESSION: Unremarkable chest examination. Dictated By: Marc Adames MD Prescription Management I considered prescription management with: Antibiotic Chronic Conditions Patient?s care impacted by: Other ( asthma) Discharge Plan Discharge Clinical Impression: Bronchitis Asthma exacerbation Qualifiers: Asthma severity: moderate Patient Disposition: Home, Self-Care Instructions: Acute Bronchitis (ED) Additional Instructions: your laboratory evaluation was normal. Your chest x-ray was normal with no evidence for pneumonia. Your COVID-19, influenza and RSV tests were negative. Your symptoms are consistent with bronchitis which is caused a flare-up of your asthma. Take prednisone 20 mg pills, 3 pills once a day for 5 days. While you are taking prednisone, do not take any NSAIDs (Motrin, Advil, ibuprofen, Aleve, naproxen). Take Zithromax (azithromycin) Z-Lucien as prescribed. Day 1 take 2 pills, each day after that take 1 pill for total of 5 days. This medication states in your system for 7-10 days and continues to work despite only taking it for 5 days. Follow-up with your doctor in 2 days. Please return to the emergency department if your symptoms get worse or if you develop any symptoms that are concerning to you. take your next dose of prednisone and Zithromax tomorrow, your given these medications in the emergency department today. Prescriptions: New azithromycin [Zithromax Z-Lucien] 250 mg tablet See Rx Instructions PO .COMPLEX Qty: 6 0RF Rx Instructions: take 500 mg today (day 1), then 250 mg for 4 days (days 2-5) prednisone 20 mg tablet 60 mg PO DAILY 5 Days Qty: 15 0RF No Action multivitamin Tablet 1 tab PO QAM methocarbamol 500 mg tablet 1 tab PO QID PRN (Reason: pain) sulfamethoxazole-trimethoprim 400-80 mg tablet 1 tab PO QAM gabapentin 400 mg capsule 1 cap PO TID sumatriptan succinate 50 mg tablet 50 mg PO DAILY PRN (Reason: Migraine Headache) paroxetine HCl 20 mg tablet 1 tab PO BEDTIME docusate sodium 100 mg capsule 1 cap PO BID PRN (Reason: constipation) omeprazole 20 mg capsule,delayed release(DR/EC) 1 cap PO QAM mirtazapine 15 mg tablet 1 tab PO BEDTIME melatonin 5 mg tablet 1 tab PO BEDTIME Biktarvy 50-200-25 mg tablet 1 tab PO BEDTIME Eliquis DVT-PE Treat 30D Start 5 mg (74 tabs) tablets,dose pack 5 mg PO BID Qty: 74 0RF acetaminophen [Tylenol Extra Strength] 500 mg tablet 500 mg PO Q6H PRN (Reason: fever or pain) Qty: 30 0RF morphine 15 mg tablet 15 mg PO Q4-6H PRN (Reason: pain) Qty: 14 0RF Rx Instructions: Patient may request partial fill; Partial Fill upon patient request. morphine 15 mg tablet 15 mg PO Q8H PRN (Reason: pain) Qty: 20 0RF Rx Instructions: Partial Fill upon patient request.
[2023-02-13] MEDS: Albuterol Sulfate 2.5 MG, Albuterol/Iprat 2.5/0.5MG 3 ML 3 ML INHALE (10:43)
[2023-02-13 10:46] VITALS: PULSE 92; RESP 22; O2SAT 94
[2023-02-13] MEDS: predniSONE 20 MG TABLET 60 MG PO (11:16)
[2023-02-13 11:25] LABS: MANUAL DIFF FLAG NO
[2023-02-13 11:27] LABS: Basophils Percent Auto 0.4 % (0-2); Eosinophils Absolute Auto 0.2 X10*3/uL (0.0-0.4); Eosinophils Percent Auto 2.1 % (0-4); Hematocrit 42.3 % (42.0-52.0); Hemoglobin 13.6 g/dl (14.0-18.0); Imm Gran Abs Auto 0.02 X10*3/uL (0.00-0.03); Imm Gran Pct Auto 0.3 % (0.0-0.4); Lymphocytes Absolute Auto 1.1 X10*3/uL (1.2-4.9); Lymphocytes Percent Auto 13.3 % (20-40); Mean Corpuscular HGB Conc 32.2 g/dl (31.0-36.0); Mean Corpuscular Hemoglobin 27.5 pg (27.0-33.0); Mean Corpuscular Volume 85.6 fL (80.0-98.0); Mean Platelet Volume 9.8 fL (9.4-12.4); Monocytes Absolute Auto 0.6 X10*3/uL (0.1-1.2); Monocytes Percent Auto 7.9 % (2-11); Neutrophils Absolute Auto 6.1 x10*3/uL (2.0-8.3); Platelet Count 192 X10*3/uL (160-400); Red Blood Count 4.94 X10*6/uL (4.60-5.80); Red Cell Distribution Width 12.9 % (11.0-16.0)
--- NOTE | 2023-02-13 11:31 | PC.NURSE ---
resting quietly in room, obtaining labs at this time. 92-94% on room air after treatment.
[2023-02-13 11:41] LABS: Alanine Aminotransferase 23 U/L (0-40); Albumin Level 4.2 g/dL (3.5-5.0); Alkaline Phosphatase 185 U/L (39-117); Anion Gap 15 (12-20); Aspartate Amino Transferase 29 U/L (5-37); Bilirubin Total 1.1 mg/dL (0.0-1.0); Blood Urea Nitrogen 13 mg/dL (9-16); C Reactive Protein 5.04 mg/dL (< or = 0.50); Calcium 9.9 mg/dL (8.4-10.2); Carbon Dioxide 26 mmol/L (22-29); Chloride 102 mmol/L (96-108); Creatinine Clr Calc Pharmacy 73.9; Estimated Glomerular Filt Rate > 60; Glucose Random 106 mg/dL (60-115); Potassium 4.1 mmol/L (3.3-5.1); Sodium 139 mmol/L (135-145); Total Protein 7.8 g/dL (6.5-8.0)
[2023-02-13 11:44] VITALS: BP 123/71; PULSE 107; RESP 14; O2SAT 92
[2023-02-13 12:00] LABS: IDNOW Serial# 08D9AD1C; Strep A Nucleic Acid Negative (Negative)
[2023-02-13 12:18] LABS: Erythrocyte Sedimentation Rate 20 MM/HR (0-15)
[2023-02-13 12:25] LABS: Influenza A PCR NEGATIVE (Negative); Influenza B PCR NEGATIVE (Negative); Resp Syncy Virus RNA Qual PCR NEGATIVE (Negative); SARS COV2 PCR INHOUSE NEGATIVE (Negative)
[2023-02-13] MEDS: Azithromycin 500 MG TABLET PO (14:47)
== END 2023-02-13 14:57 | disposition home or self-care (01) ==
PROVIDERS: Physician Assistant Medical; Emergency Provider Emergency Medicine Emergency Medical Services; PCP General Practice
DX: J45.41 Moderate persistent asthma with (acute) exacerbation (principal); Z20.822 Contact with and (suspected) exposure to COVID-19; Z20.828 Contact with and (suspected) exposure to other viral communicable diseases; F17.210 Nicotine dependence, cigarettes, uncomplicated
CPT/HCPCS: 0241U; 71046; 80053; 85025; 85652; 86140; 87651; 94640; 99284

== ENCOUNTER 2023-02-20 09:49 | Outpatient (REF) | payer MEDICAID, SELFPAY ==
[2023-02-22 13:18] LABS: HIV RNA PCR Qn Copies <20 DETECTED copies/mL (NOT DETECTED); HIV RNA PCR Qn Log Copies <1.30 DETECTED (NOT DETECTED)
[2023-03-06 20:42] LABS: HIV 1 Integrase Proviral DNA DETECTED; HIV 1 PR RT Proviral DNA DETECTED
== END 2023-02-20 09:50 | disposition home or self-care (01) ==
LOC: HO.HHCL 09:49
PROVIDERS: Visit Provider Student in an Organized Health Care Education/Training Program
DX: B20 Human immunodeficiency virus [HIV] disease (principal)
CPT/HCPCS: 36415; 87536; 87900; 87901; 87906

== ENCOUNTER 2023-05-23 13:33 | Outpatient (REF) | payer MEDICAID, SELFPAY ==
[2023-05-23 16:19] LABS: MANUAL DIFF FLAG NO
[2023-05-23 16:23] LABS: Basophils Percent Auto 0.4 % (0-2); Eosinophils Absolute Auto 0.2 X10*3/uL (0.0-0.4); Eosinophils Percent Auto 2.9 % (0-4); Hematocrit 41.8 % (42.0-52.0); Hemoglobin 13.7 g/dl (14.0-18.0); Imm Gran Abs Auto 0.01 X10*3/uL (0.00-0.03); Imm Gran Pct Auto 0.2 % (0.0-0.4); Lymphocytes Absolute Auto 0.8 X10*3/uL (1.2-4.9); Lymphocytes Percent Auto 14.6 % (20-40); Mean Corpuscular HGB Conc 32.8 g/dl (31.0-36.0); Mean Corpuscular Hemoglobin 28.2 pg (27.0-33.0); Mean Corpuscular Volume 86.2 fL (80.0-98.0); Mean Platelet Volume 10.5 fL (9.4-12.4); Monocytes Absolute Auto 0.4 X10*3/uL (0.1-1.2); Monocytes Percent Auto 7.2 % (2-11); Neutrophils Absolute Auto 4.1 x10*3/uL (2.0-8.3); Neutrophils Percent Auto 74.7 % (45-73); Platelet Count 265 X10*3/uL (160-400); Red Blood Count 4.85 X10*6/uL (4.60-5.80); Red Cell Distribution Width 12.5 % (11.0-16.0); White Blood Count 5.5 X10*3/uL (4.8-10.8)
[2023-05-23 16:39] LABS: Alanine Aminotransferase 25 U/L (0-40); Albumin Level 4.3 g/dL (3.5-5.0); Alkaline Phosphatase 155 U/L (39-117); Anion Gap 13 (12-20); Aspartate Amino Transferase 30 U/L (5-37); Bilirubin Total 0.7 mg/dL (0.0-1.0); Blood Urea Nitrogen 17 mg/dL (9-16); Calcium 9.5 mg/dL (8.4-10.2); Carbon Dioxide 28 mmol/L (22-29); Chloride 103 mmol/L (96-108); Cholesterol 204 mg/dL (<200); Estimated Glomerular Filt Rate > 60; Glucose Random 82 mg/dL (60-115); HDL Cholesterol 32 mg/dL (>40); LDL Cholesterol Calculated 126 mg/dL (<100); Sodium 140 mmol/L (135-145); Total Protein 7.7 g/dL (6.5-8.0); Triglycerides 230 mg/dL (<150)
[2023-05-23 16:55] LABS: Reflex LDLD? No
[2023-05-24 09:13] LABS: CT PCR NOT DETECTED (Not Detect.); NG PCR NOT DETECTED (Not Detect.)
[2023-05-26 04:04] LABS: HBS Num1 2.46 mIU/mL (0-7.99); HBsAGNum1 0.62 S/CO (0.00-0.99); Hepatitis B Surface Antigen Negative (Negative); ~Hepatitis B Surface Antibody NONREACTIVE (Nonreactive)
[2023-05-26 04:58] LABS: HBc Num2 6.18 S/CO; HBc Num3 6.58 S/CO; Hepatitis B Core Antibody Reactive (Nonreactive)
[2023-05-26 10:13] LABS: Absolute CD3 Count 421 cells/uL (840-3060); Absolute CD4 Count 155 cells/uL (490-1740); Absolute CD8 Count 268 cells/uL (180-1170); Absolute Lymphocytes 840 cells/uL (850-3900); CD4 CD8 Ratio 0.58 (0.86-5.00); Percent CD3 Cells 50 % (57-85); Percent CD4 Cells 18 % (30-61); Percent CD8 Cells 32 % (12-42)
[2023-05-27 02:48] LABS: Rubeola IgG (Measles) >300.00 AU/mL
[2023-05-27 07:38] LABS: Hepatitis B Core Antibody IgM NON-REACTIVE (NON-REACTIVE)
[2023-05-27 12:43] LABS: HIV RNA PCR Qn Copies 71 copies/mL (NOT DETECTED); HIV RNA PCR Qn Log Copies 1.85 (NOT DETECTED)
== END 2023-05-23 13:34 | disposition home or self-care (01) ==
LOC: HO.HHCL 13:33
PROVIDERS: Visit Provider Internal Medicine
DX: B20 Human immunodeficiency virus [HIV] disease (principal)
CPT/HCPCS: 0353U; 36415; 80053; 80061; 85025; 86359; 86360; 86704; 86705; 86706; 86735; 86762; 86765; 87340; 87536

== ENCOUNTER 2023-07-31 11:00 | Outpatient (RCR) | payer MEDICAID, SELFPAY | END 2023-09-25 10:45 | disposition home or self-care (01) | LOC: HO.PT 11:00 | PROVIDERS: PCP General Practice; Visit Provider General Practice | DX: Z89.511 Acquired absence of right leg below knee (principal) | CPT/HCPCS: 97110; 97116; 97140; 97162; 97163; 97530 ==

== ENCOUNTER 2023-09-08 16:32 | Outpatient (REF) | payer MEDICAID, SELFPAY | END 2023-09-08 16:33 | disposition home or self-care (01) | LOC: HO.HHCLNP 16:32 | PROVIDERS: Visit Provider General Practice | DX: Z21 Asymptomatic human immunodeficiency virus [HIV] infection status (principal) | CPT/HCPCS: 88112 ==

== ENCOUNTER 2023-11-29 13:27 | Emergency (ER) | payer MEDICAID, SELFPAY ==
--- NOTE | 2023-11-29 13:30 | ED.GENADULT ---
HPI - General Adult General Chief complaint: General Medical Stated complaint: nerve pain Time Seen by Provider: 11/29/23 13:39 Source: patient Mode of arrival: ambulatory Limitations: no limitations History of Present Illness ED Provider: Cong KELLY HPI narrative: This is a 58-year-old male history of HIV, hepatitis-C, phantom limb, DVT on Eliquis pain of the right lower extremity presenting to the emergency department with complaints of right lower extremity pain he tells me this started today at approximately 11:00 has been worsening ever since reports pain is like his typical pain with phantom pain, he reports usually improves with morphine and a patient injection denies fevers, chills, chest pain, shortness of breath, nausea vomiting, numbness, tingling, trauma to the extremity Related Data Home Medications ?Medication ?Instructions ?Recorded ?Confirmed bictegravir 50 mg-emtricitabine 1 tab PO BEDTIME 03/18/22 12/20/22 200 mg-tenofovir alafenam 25 mg tablet (Biktarvy) docusate sodium 100 mg capsule 1 cap PO BID PRN constipation 03/18/22 12/20/22 gabapentin 400 mg capsule 1 cap PO TID 03/18/22 12/20/22 melatonin 5 mg tablet 1 tab PO BEDTIME 03/18/22 12/20/22 methocarbamol 500 mg tablet 1 tab PO QID PRN pain 03/18/22 12/20/22 mirtazapine 15 mg tablet 1 tab PO BEDTIME 03/18/22 12/20/22 multivitamin 1 tab PO QAM 03/18/22 12/20/22 omeprazole 20 mg capsule,delayed 1 cap PO QAM 03/18/22 12/20/22 release paroxetine HCl 20 mg tablet 1 tab PO BEDTIME 03/18/22 12/20/22 sulfamethoxazole 400 1 tab PO QAM 03/18/22 12/20/22 mg-trimethoprim 80 mg tablet sumatriptan succinate 50 mg tablet 50 mg PO DAILY PRN Migraine 03/18/22 12/20/22 Headache Previous Rx's ?Medication ?Instructions ?Recorded apixaban 5 mg (74 tabs) tablets in 5 mg PO BID #74 ea 10/22/21 a dose pack (Eliquis DVT-PE Treat 30D Start) acetaminophen 500 mg tablet 500 mg PO Q6H PRN fever or pain 12/08/22 (Tylenol Extra Strength) #30 tabs morphine 15 mg immediate release 15 mg PO Q4-6H PRN pain #14 tabs 12/08/22 tablet morphine 15 mg immediate release 15 mg PO Q8H PRN pain #20 tabs 01/01/23 tablet azithromycin 250 mg tablet See Rx Instructions PO .COMPLEX #6 02/13/23 (Zithromax Z-Lucien) tabs prednisone 20 mg tablet 60 mg (3 x 20 mg) PO DAILY 5 days 02/13/23 #15 tabs morphine 15 mg immediate release 15 mg PO Q6H PRN pain 5 days #10 11/29/23 tablet tabs Allergies Allergy/AdvReac Type Severity Reaction Status Date / Time Penicillins [PENICILLINS] Allergy Severe SWELLING Verified 11/29/23 13:33 shellfish derived Allergy Severe SWELLING Verified 11/29/23 13:33 [SHELLFISH DERIVED] CHOCOLATE Allergy Severe SWELLING Uncoded 12/20/22 11:17 [facility] Past Medical History Medical History (Updated 11/29/23 @ 14:21 by SHAYY Benavides) Amputation of leg, right, traumatic Phantom limb pain Substance abuse HIV (human immunodeficiency virus infection) Hepatitis C DVT (deep venous thrombosis) Acute deep vein thrombosis (DVT) of right femoral vein PAD (peripheral artery disease) Personal history of nicotine dependence Closed fracture of phalanx of second toe Fracture of left great toe Depression Crohn's disease Ankle fracture, left Surgical History History of surgery History of right above knee amputation History of liver biopsy History of laparoscopic cholecystectomy History of colonoscopy History of cochlear implant Family History Family History Other No family history of coronary artery disease Social History Social History Household Members: Spouse and Family Housing: Apartment Are you a primary direct care supervisor to a significant other at home: No Do you presently have visiting nurse or other home services: No Alcohol intake: former Comment: traumatic amputation right leg Patient Tobacco Use Status: Current everyday Tobacco user Tobacco use type: Cigarette Cigarettes Per Day: 2 Years Smoked: (onset 16, 1/2-1ppd x 38yrs, 30pyh, quit 01/01/2020) Second Hand Smoke Exposure: Yes Substance Use Type: Marijuana Advance Directives: No Advance Directives Information Provided: No Do you have a plan to hurt others: No Plan service: No Current occupational status: unemployed Gender identity: Male Physical Exam ED Vital Signs: Vital Signs - 24 hr 11/29/23 13:31 Temperature 97.7 F Pulse Rate 88 Respiratory Rate 18 Blood Pressure 121/77 Pulse Oximetry 95 Oxygen Delivery Method Room Air BMI result Body Mass Index 26.5 vss Appearance: Alert.? Oriented X3.? No acute distress.? Head: Normocephalic, atraumatic, no step-offs or deformities Eyes: Pupils equal, round and reactive to light.? Neck: Normal inspection.? Neck supple.? CVS: Normal heart rate and rhythm.? Pulses normal.? Respiratory: No respiratory distress.? Breath sounds normal.? Abdomen: Soft and nontender.? Skin: Skin warm and dry.? Normal skin color.? Normal skin turgor.? Extremities: No lower extremity edema.? No calf ttp. 5/5 strength to bilateral upper and lower extremities right [id number] amputation above the knee amputation, stump appears normal with no erythema or increased warmth. Normal sensation distally. Able to move it at the right hip. Neuro: Oriented X 3.? No motor deficit.? No sensory deficit. CN 2-12 intact Course Course Course Narrative: RME performed by Kendra Sanders PA-C. Patient is a 58 year old assigned male at presenting to the emergency department with right sided phantom limb pain. Patient states he is having right sided phantom limb pain which has happened to him before but feels worse today. Detailed physical exam and review of systems are deferred to the social and political studies professor. Patient placed back in the waiting room pending room availability. Medications Administered Discontinued Medications Generic Name Dose Route Start Last Admin Trade Name Freq PRN Reason Stop Dose Admin Morphine Sulfate 15 mg 11/29/23 14:20 11/29/23 14:50 Morphine Sulfate Immed Release 15 Mg Tablet PO 11/29/23 14:21 15 mg ONCE ONE Administration Medical Decision Making Medical Decision Making MDM Narrative: 58-year-old male presents with complaints of amputation stump pain for the last few days. Physical exam patient has a right [id number] amputation above the knee amputation, stump appears normal with no erythema or increased warmth. Normal sensation distally. Able to move it at the right hip. History and physical exam concerning for phantom pain. No signs of cellulitis arterial occlusion, venous occlusion acute threat to limb. To note, patient is anticoagulated Plan pain control. Differential Diagnosis Differential Diagnoses: The differential diagnosis associated with the presentation includes History and physical exam concerning for phantom pain. No signs of cellulitis arterial occlusion, venous occlusion acute threat to limb. Admission/Observation Consideration of admission/observation: Escalation of care including admission/observation considered No indication+ Discharge Plan Discharge Clinical Impression: Amputation stump pain Patient Disposition: Home, Self-Care Instructions: Leg Pain (ED) Additional Instructions: Take your medications as prescribed. If you were prescribed antibiotics today, it is important that you take your medication to their entirety, do not skip any doses, do not finish them early. Follow-up with your primary care provider this week. Return to the emergency department with new or worsening symptoms. Such as fevers, chills, chest pain, shortness of breath, nausea, vomiting, dizziness, headache, vision changes, lethargy In case of emergency call 911 You can take Tylenol 2 pills every 4-6 hours as needed for pain, if Tylenol is not working you can take morphine 15 mg 1 pill every 4-6 hours as needed for pain. A narcotic has been sent to your pharmacy please take this as prescribed. Do not take more than the prescribed dose. Narcotic medications can cause addiction. Please do not mix them with alcohol. Do not take them while driving or operating machinery. Do not take them with any other narcotics. Do not share them with friends or family. They can cause constipation. Take them only for severe pain. Continue your prescribed gabapentin Do not take NSAIDs or ibuprofen with Eliquis. This can lead to stomach ulcers and you can have increased bleeding. Prescriptions: New morphine 15 mg tablet 15 mg PO Q6H PRN (Reason: pain) 5 Days Qty: 10 0RF Rx Instructions: Partial Fill upon patient request. No Action multivitamin Tablet 1 tab PO QAM methocarbamol 500 mg tablet 1 tab PO QID PRN (Reason: pain) sulfamethoxazole-trimethoprim 400-80 mg tablet 1 tab PO QAM gabapentin 400 mg capsule 1 cap PO TID sumatriptan succinate 50 mg tablet 50 mg PO DAILY PRN (Reason: Migraine Headache) paroxetine HCl 20 mg tablet 1 tab PO BEDTIME docusate sodium 100 mg capsule 1 cap PO BID PRN (Reason: constipation) omeprazole 20 mg capsule,delayed release(DR/EC) 1 cap PO QAM mirtazapine 15 mg tablet 1 tab PO BEDTIME melatonin 5 mg tablet 1 tab PO BEDTIME Biktarvy 50-200-25 mg tablet 1 tab PO BEDTIME Eliquis DVT-PE Treat 30D Start 5 mg (74 tabs) tablets,dose pack 5 mg PO BID Qty: 74 0RF acetaminophen [Tylenol Extra Strength] 500 mg tablet 500 mg PO Q6H PRN (Reason: fever or pain) Qty: 30 0RF morphine 15 mg tablet 15 mg PO Q4-6H PRN (Reason: pain) Qty: 14 0RF Rx Instructions: Patient may request partial fill; Partial Fill upon patient request. morphine 15 mg tablet 15 mg PO Q8H PRN (Reason: pain) Qty: 20 0RF Rx Instructions: Partial Fill upon patient request. azithromycin [Zithromax Z-Lucien] 250 mg tablet See Rx Instructions PO .COMPLEX Qty: 6 0RF Rx Instructions: take 500 mg today (day 1), then 250 mg for 4 days (days 2-5) prednisone 20 mg tablet 60 mg PO DAILY 5 Days Qty: 15 0RF Stand Alone Forms: Work/School Release Print Language: Martiniquais
[2023-11-29 13:31] VITALS: BP 121/77; PULSE 88; RESP 18; TEMP 36.5; O2SAT 95; BMI 26.5
[2023-11-29] MEDS: Morphine Sulfate Immed Release 15 MG TABLET PO (14:50)
[2023-11-29 15:03] VITALS: BP 121/77; PULSE 88; RESP 18; TEMP 36.5; O2SAT 95
== END 2023-11-29 15:04 | disposition home or self-care (01) ==
PROVIDERS: Emergency Provider Emergency Medicine; PCP General Practice
DX: G54.6 Phantom limb syndrome with pain (principal); B20 Human immunodeficiency virus [HIV] disease; F19.10 Other psychoactive substance abuse, uncomplicated; F17.210 Nicotine dependence, cigarettes, uncomplicated; Z86.718 Personal history of other venous thrombosis and embolism; Z79.01 Long term (current) use of anticoagulants; Z79.899 Other long term (current) drug therapy
CPT/HCPCS: 99283

== ENCOUNTER 2023-12-18 14:36 | Outpatient (REF) | payer MEDICAID, SELFPAY ==
[2023-12-18 16:08] LABS: MANUAL DIFF FLAG NO
[2023-12-18 16:17] LABS: Basophils Percent Auto 0.5 % (0-2); Eosinophils Absolute Auto 0.2 X10*3/uL (0.0-0.4); Eosinophils Percent Auto 1.8 % (0-4); Hematocrit 44.9 % (42.0-52.0); Imm Gran Abs Auto 0.03 X10*3/uL (0.00-0.03); Imm Gran Pct Auto 0.4 % (0.0-0.4); Lymphocytes Absolute Auto 1.2 X10*3/uL (1.2-4.9); Lymphocytes Percent Auto 14.5 % (20-40); Mean Corpuscular HGB Conc 33.4 g/dl (31.0-36.0); Mean Corpuscular Hemoglobin 28.6 pg (27.0-33.0); Mean Corpuscular Volume 85.7 fL (80.0-98.0); Mean Platelet Volume 10.2 fL (9.4-12.4); Monocytes Absolute Auto 0.6 X10*3/uL (0.1-1.2); Monocytes Percent Auto 7.7 % (2-11); Neutrophils Absolute Auto 6.2 x10*3/uL (2.0-8.3); Neutrophils Percent Auto 75.1 % (45-73); Platelet Count 319 X10*3/uL (160-400); Red Blood Count 5.24 X10*6/uL (4.60-5.80); Red Cell Distribution Width 12.9 % (11.0-16.0); White Blood Count 8.2 X10*3/uL (4.8-10.8)
[2023-12-18 16:24] LABS: Alanine Aminotransferase 25 U/L (0-40); Albumin Level 4.3 g/dL (3.5-5.0); Alkaline Phosphatase 176 U/L (39-117); Anion Gap 13 (12-20); Aspartate Amino Transferase 48 U/L (5-37); Bilirubin Total 0.7 mg/dL (0.0-1.0); Blood Urea Nitrogen 16 mg/dL (9-16); Calcium 9.6 mg/dL (8.4-10.2); Carbon Dioxide 27 mmol/L (22-29); Chloride 105 mmol/L (96-108); Estimated Glomerular Filt Rate > 60; Glucose Random 99 mg/dL (60-115); Potassium 3.3 mmol/L (3.3-5.1); Sodium 142 mmol/L (135-145); Total Protein 7.7 g/dL (6.5-8.0)
[2023-12-19 08:14] LABS: Hepatitis A Antibody IgG REACTIVE (Nonreactive); ~Hepatitis A Antibody IgG 12.08 S/CO (0.00-0.99)
[2023-12-19 08:30] LABS: Syphilis Screen Nonreactive (Nonreactive)
[2023-12-21 00:39] LABS: TS Negative Control Passed; TS Panel A 0; TS Panel B 0; TS Positive Control Passed; TSpotTB Negative (Negative)
[2023-12-22 13:18] LABS: HCV Log PCR <1.18 NOT DETECTED Log IU/mL (NOT DETECTED); HepC Viral Load <15 NOT DETECTED IU/mL (NOT DETECTED)
[2023-12-22 17:14] LABS: Absolute CD3 Count 516 cells/uL (840-3060); Absolute CD4 Count 209 cells/uL (490-1740); Absolute CD8 Count 314 cells/uL (180-1170); Absolute Lymphocytes 1083 cells/uL (850-3900); CD4 CD8 Ratio 0.67 (0.86-5.00); Percent CD3 Cells 48 % (57-85); Percent CD4 Cells 19 % (30-61); Percent CD8 Cells 29 % (12-42)
== END 2023-12-18 14:37 | disposition home or self-care (01) ==
LOC: HO.HHCL 14:36
PROVIDERS: Visit Provider Internal Medicine
DX: B20 Human immunodeficiency virus [HIV] disease (principal)
CPT/HCPCS: 36415; 80053; 85025; 86359; 86360; 86481; 86708; 86780; 87522; 87536

== ENCOUNTER 2024-01-07 12:13 | Outpatient (REF) | payer MEDICAID, SELFPAY ==
[2024-01-10 15:33] LABS: HIV RNA PCR Qn Copies 30 copies/mL (NOT DETECTED); HIV RNA PCR Qn Log Copies 1.48 (NOT DETECTED)
== END 2024-01-07 12:14 | disposition home or self-care (01) ==
LOC: HO.HHCL 12:13
PROVIDERS: Visit Provider Internal Medicine
DX: B20 Human immunodeficiency virus [HIV] disease (principal)
CPT/HCPCS: 36415; 87536

== ENCOUNTER 2024-01-16 12:43 | Outpatient (AMB) | payer MEDICAID, SELFPAY ==
[2024-01-16 12:52] VITALS: BP 114/72; PULSE 84; RESP 14
--- NOTE | 2024-01-16 12:52 | A.OFFVIS_ITS ---
Vital Signs 01/16/24 12:52 BP 114/72 Blood Pressure Location Lt brachial Position Sitting Respiration 14 Pulse 84 Pulse Source Pulse Oximeter Intake Visit Reasons: Recurring Pain Allergies Penicillins [PENICILLINS] Allergy (Severe, Verified 01/31/24 23:59) SWELLING shellfish derived [SHELLFISH DERIVED] Allergy (Severe, Verified 01/31/24 23:59) SWELLING CHOCOLATE Allergy (Severe, Uncoded 01/31/24 23:59) SWELLING Medication List - Last Reconciled 01/16/24 by Kendra Davison LPN acetaminophen (Tylenol Extra Strength) 500 mg PO Q6H PRN apixaban (Eliquis DVT-PE Treat 30D Start) 5 mg PO BID [id number]-[id number]-xcmlyow ala 50-200-25 mg (Biktarvy) 1 tab PO BEDTIME docusate sodium 1 cap PO BID PRN gabapentin 1 cap PO TID melatonin 1 tab PO BEDTIME methocarbamol 1 tab PO QID PRN mirtazapine 1 tab PO BEDTIME morphine 15 mg PO Q4-6H PRN morphine 15 mg PO Q8H PRN morphine 15 mg PO Q6H PRN 5 days multivitamin 1 tab PO QAM omeprazole 1 cap PO QAM paroxetine HCl 1 tab PO BEDTIME prednisone 60 mg (3 x 20 mg) PO DAILY 5 days sulfamethoxazole-trimethoprim 400-80 mg 1 tab PO QAM sumatriptan succinate 50 mg PO DAILY PRN HPI HPI Recurring Pain: Details: 58-year-old male who presents today to the office for a recurring pain. He continues to experiences same pain. He was seen in the ER for right lower extremities pain on 11/29/2023. He has not done psychological evaluation done. He is still waiting for the procedure. He was taking Percocet with good relief. He was using hot compression in the past. Past Procedures: 10/02/22: Peripheral Nerve Stimulation Temporary Lead Placement, Ultrasound- Guided, Sciatic Nerve, Right:? 60-70% relief while wearing the device 09/04/22: Peripheral Nerve Stimulation Temporary Lead Placement, Ultrasound- Guided, Femoral Nerve, Right: 50% relief while wearing the device.?? [facility] Medical History (Updated 02/01/24 @ 04:04 by Mata Zhao MD) Amputation of leg, right, traumatic Phantom limb pain Substance abuse HIV (human immunodeficiency virus infection) Hepatitis C DVT (deep venous thrombosis) Acute deep vein thrombosis (DVT) of right femoral vein PAD (peripheral artery disease) Personal history of nicotine dependence Closed fracture of phalanx of second toe Fracture of left great toe Depression Crohn's disease Ankle fracture, left Surgical History History of surgery History of right above knee amputation History of liver biopsy History of laparoscopic cholecystectomy History of colonoscopy History of cochlear implant Family History Other No family history of coronary artery disease Social History Household Members: Spouse and Family Housing: Apartment Are you a primary career advisor to a significant other at home: No Do you presently have visiting nurse or other home services: No Alcohol intake: never Comment: traumatic amputation right leg Patient Tobacco Use Status: Current everyday Tobacco user Tobacco use type: Cigarette Cigarettes Per Day: 2 Years Smoked: (onset 16, 12-1ppd x 38yrs, 30pyh, quit 01/01/2020) Smoked in Last 30 Days: Yes Second Hand Smoke Exposure: Yes Use of substances other than those prescribed or required for medical reasons: No Substance Use Type: Marijuana Advance Directives: No Advance Directives Information Provided: No Do you have a plan to hurt others: No Plan service: No Current occupational status: unemployed Gender identity: Male Review of Systems Const All systems reviewed & are unremarkable except as noted in HPI and below Physical Exam Vital Signs: Last Vital Signs Pulse 84 01/16/24 12:52 Resp 14 01/16/24 12:52 BP 114/72 01/16/24 12:52 General: Appears afebrile. Alert and oriented. Mood and affect appropriate. Follows and participates in conversation appropriately. Respiratory effort is unlabored. Able to transition from sit to stand unassisted. Ambulates with bilaterally normal heel strike and toe off. Results Reviewed Results Reviewed: No imaging is available for review. Assessment & Plan Assessment & Plan (1) Phantom limb pain: Code(s): G54.6 - Phantom limb syndrome with pain Category: Medical Plan Will place a referral for psychology clearance. Once we have received psychology clearance, we will plan for implanted IPG for peripheral nerve stimulation. The patient will receive a call from [facility] for the psychology assessment. He has previously exhausted oral morphine therapy, temporary peripheral nerve stimulation. Scribed for Dr. Haro by Carlton Boyle, medical office worker, on 01/16/2024. I, Dr. Haro, have personally reviewed and agree with the information entered by the scribe. Medications: New oxycodone-acetaminophen 5-325 mg Partial Fill upon patient request. 1 tab PO DAILY PRN 30 tabs 0RF pain Coding Level of Care Code Est Pt Level 3 (87111) Diagnoses Phantom limb pain G54.6
== END 2024-01-16 13:17 | disposition home or self-care (01) ==
PROVIDERS: PCP General Practice; Visit Provider Internal Medicine
DX: G54.6 Phantom limb syndrome with pain (principal)
CPT/HCPCS: 99213

== ENCOUNTER → 2024-01-16 12:43 | Outpatient (BNVA) | payer MEDICAID, SELFPAY | PROVIDERS: PCP General Practice; Visit Provider Internal Medicine | DX: G54.6 Phantom limb syndrome with pain (principal) | CPT/HCPCS: 99212 ==

== ENCOUNTER 2024-01-31 23:52 | Emergency (ER) | payer MEDICAID, SELFPAY ==
[2024-01-31 23:58] VITALS: BP 121/84; PULSE 83; RESP 16; TEMP 36.2; O2SAT 96; BMI 25.7
--- NOTE | 2024-02-01 02:43 | ED.GENADULT ---
HPI - General Adult General Chief complaint: General Medical Stated complaint: nerve pain Time Seen by Provider: 02/01/24 02:41 Source: patient and family Limitations: no limitations History of Present Illness ED Provider: Dr. Mata Zhao HPI narrative: 58-year-old male with history of Hep C, DVT, depression, Crohn's disease, substance abuse,asthma, HIV disease since 1984, right traumatic above the knee amputation who presented to the emergency department for evaluation right phantom limb pain. The patient states that the pain started yesterday morning and got progressively worse. He states the pain is a sharp, constant nerve pain which is greater than 10/10. Patient has had similar presentations in the past. Patient denied fever or chills. He is prescribed gabapentin and oxycodone for this pain. He took this medication at home and did not relieve his symptoms. Related Data Home Medications ?Medication ?Instructions ?Recorded ?Confirmed bictegravir 50 mg-emtricitabine 1 tab PO BEDTIME 03/18/22 01/16/24 200 mg-tenofovir alafenam 25 mg tablet (Biktarvy) docusate sodium 100 mg capsule 1 cap PO BID PRN constipation 03/18/22 01/16/24 gabapentin 400 mg capsule 1 cap PO TID 03/18/22 01/16/24 melatonin 5 mg tablet 1 tab PO BEDTIME 03/18/22 01/16/24 methocarbamol 500 mg tablet 1 tab PO QID PRN pain 03/18/22 01/16/24 mirtazapine 15 mg tablet 1 tab PO BEDTIME 03/18/22 01/16/24 multivitamin 1 tab PO QAM 03/18/22 01/16/24 omeprazole 20 mg capsule,delayed 1 cap PO QAM 03/18/22 01/16/24 release paroxetine HCl 20 mg tablet 1 tab PO BEDTIME 03/18/22 01/16/24 sulfamethoxazole 400 1 tab PO QAM 03/18/22 01/16/24 mg-trimethoprim 80 mg tablet sumatriptan succinate 50 mg tablet 50 mg PO DAILY PRN Migraine 03/18/22 01/16/24 Headache Previous Rx's ?Medication ?Instructions ?Recorded apixaban 5 mg (74 tabs) tablets in 5 mg PO BID #74 ea 10/22/21 a dose pack (Eliquis DVT-PE Treat 30D Start) acetaminophen 500 mg tablet 500 mg PO Q6H PRN fever or pain 12/08/22 (Tylenol Extra Strength) #30 tabs morphine 15 mg immediate release 15 mg PO Q4-6H PRN pain #14 tabs 12/08/22 tablet morphine 15 mg immediate release 15 mg PO Q8H PRN pain #20 tabs 01/01/23 tablet prednisone 20 mg tablet 60 mg (3 x 20 mg) PO DAILY 5 days 02/13/23 #15 tabs morphine 15 mg immediate release 15 mg PO Q6H PRN pain 5 days #10 11/29/23 tablet tabs oxycodone-acetaminophen 5 mg-325 1 tab PO DAILY PRN pain #30 tabs 01/19/24 mg tablet Allergies Allergy/AdvReac Type Severity Reaction Status Date / Time Penicillins [PENICILLINS] Allergy Severe SWELLING Verified 01/31/24 23:59 shellfish derived Allergy Severe SWELLING Verified 01/31/24 23:59 [SHELLFISH DERIVED] CHOCOLATE Allergy Severe SWELLING Uncoded 01/31/24 23:59 Review of Systems Review of Systems: Yes all other systems are reviewed and are negative [facility] Past Medical History Medical History (Updated 02/01/24 @ 04:04 by Mata Zhao MD) Amputation of leg, right, traumatic Phantom limb pain Substance abuse HIV (human immunodeficiency virus infection) Hepatitis C DVT (deep venous thrombosis) Acute deep vein thrombosis (DVT) of right femoral vein PAD (peripheral artery disease) Personal history of nicotine dependence Closed fracture of phalanx of second toe Fracture of left great toe Depression Crohn's disease Ankle fracture, left Surgical History History of surgery History of right above knee amputation History of liver biopsy History of laparoscopic cholecystectomy History of colonoscopy History of cochlear implant Family History Family History Other No family history of coronary artery disease Social History Social History Household Members: Spouse and Family Housing: Apartment Are you a primary career development coordinator/teacher to a significant other at home: No Do you presently have visiting nurse or other home services: No Alcohol intake: never Comment: traumatic amputation right leg Patient Tobacco Use Status: Current everyday Tobacco user Tobacco use type: Cigarette Cigarettes Per Day: 2 Years Smoked: (onset 16, 1/2-1ppd x 38yrs, 30pyh, quit 01/01/2020) Smoked in Last 30 Days: Yes Second Hand Smoke Exposure: Yes Use of substances other than those prescribed or required for medical reasons: No Substance Use Type: Marijuana Advance Directives: No Advance Directives Information Provided: No Do you have a plan to hurt others: No Plan service: No Current occupational status: unemployed Gender identity: Male Physical Exam ED Vital Signs: Vital Signs - 24 hr 01/31/24 23:58 02/01/24 03:21 02/01/24 03:22 Temperature 97.1 F Pulse Rate 83 74 Respiratory Rate 16 18 18 Blood Pressure 121/84 117/73 Pulse Oximetry 96 94 Oxygen Delivery Method Room Air Room Air BMI result Body Mass Index 25.7 Vital signs were normal Exam: General: Awake, alert, answers questions appropriately, appears to be in distress secondary his right phantom limb pain Head: Normocephalic, atraumatic EENT: PERRL, Lids normal, sclera normal, conjunctiva normal, nose normal , ears normal, throat without erythema or exudates Neck: Supple, no adenopathy Lung: breath sounds symmetric, no wheezing, rales or rhonchi Chest: symmetric movement, nontender Heart: regular rate and rhythm, normal S1, S2 no murmurs or rubs Abdomen: soft, non-tender, nondistended, normal bowel sounds Back: no vertebral tenderness, no CVAT Extremities: The patient has a gxbdd-[id number]-xbwd amputation at the level of the hip, the stump appears to be normal with no erythema or increased warmth. Neuro: Awake, alert, oriented, normal speech, cranial nerves intact Medications Administered Discontinued Medications Generic Name Dose Route Start Last Admin Trade Name Freq PRN Reason Stop Dose Admin Ketorolac Tromethamine 15 mg 02/01/24 02:48 02/01/24 03:21 Ketorolac Tromethamine 15 Mg/Ml Vial IVPUSH 02/01/24 02:49 15 mg ONCE STA Administration Morphine Sulfate 4 mg 02/01/24 02:53 02/01/24 03:21 Morphine Sulfate 4 Mg/Ml Cartridge IVPUSH 02/01/24 02:54 4 mg ONCE STA Administration Protocol Medical Decision Making Medical Decision Making MDM Narrative: 58-year-old male with history of Hep C, DVT, depression, Crohn's disease, substance abuse,asthma, HIV disease since 1984, right traumatic above the knee amputation who presented to the emergency department for evaluation right phantom limb pain. The patient states that the pain started yesterday morning and got progressively worse. He states the pain is a sharp, constant nerve pain which is greater than 10/10. Patient has had similar presentations in the past. Patient denied fever or chills. He is prescribed gabapentin and oxycodone for this pain. He took this medication at home and did not relieve his symptoms. Differential diagnosis: ?Includes but is not limited to fentanyl limb pain, cellulitis Patient was initially treated with the following: IV insert, Toradol 15 mg IV, morphine 4 mg IV Course: 04:03 Patient is feeling significantly better after the above treatment, his limb pain is resolved. Patient will be discharged home. He was advised to continue taking his medications as prescribed by his provider and to follow up with his providers for re-evaluation. Admission/Observation Consideration of admission/observation: Escalation of care including admission/observation considered (yes) Discharge Plan Discharge Clinical Impression: Phantom limb pain Patient Disposition: Home, Self-Care Additional Instructions: Continue taking medications as prescribed by your providers Follow-up with your doctor in 2 days. Please return to the emergency department if your symptoms get worse or if you develop any symptoms that are concerning to you. Prescriptions: No Action oxycodone-acetaminophen 5-325 mg tablet 1 tab PO DAILY PRN (Reason: pain) Qty: 30 0RF Rx Instructions: Partial Fill upon patient request. multivitamin Tablet 1 tab PO QAM methocarbamol 500 mg tablet 1 tab PO QID PRN (Reason: pain) sulfamethoxazole-trimethoprim 400-80 mg tablet 1 tab PO QAM gabapentin 400 mg capsule 1 cap PO TID sumatriptan succinate 50 mg tablet 50 mg PO DAILY PRN (Reason: Migraine Headache) paroxetine HCl 20 mg tablet 1 tab PO BEDTIME docusate sodium 100 mg capsule 1 cap PO BID PRN (Reason: constipation) omeprazole 20 mg capsule,delayed release(DR/EC) 1 cap PO QAM mirtazapine 15 mg tablet 1 tab PO BEDTIME melatonin 5 mg tablet 1 tab PO BEDTIME Biktarvy 50-200-25 mg tablet 1 tab PO BEDTIME Eliquis DVT-PE Treat 30D Start 5 mg (74 tabs) tablets,dose pack 5 mg PO BID Qty: 74 0RF acetaminophen [Tylenol Extra Strength] 500 mg tablet 500 mg PO Q6H PRN (Reason: fever or pain) Qty: 30 0RF morphine 15 mg tablet 15 mg PO Q4-6H PRN (Reason: pain) Qty: 14 0RF Rx Instructions: Patient may request partial fill; Partial Fill upon patient request. morphine 15 mg tablet 15 mg PO Q8H PRN (Reason: pain) Qty: 20 0RF Rx Instructions: Partial Fill upon patient request. prednisone 20 mg tablet 60 mg PO DAILY 5 Days Qty: 15 0RF morphine 15 mg tablet 15 mg PO Q6H PRN (Reason: pain) 5 Days Qty: 10 0RF Rx Instructions: Partial Fill upon patient request. Print Language: Khmer
[2024-02-01 03:21] VITALS: RESP 18
[2024-02-01] MEDS: Ketorolac Tromethamine 15 MG/ML VIAL IVPUSH (03:21)
[2024-02-01] MEDS: Morphine Sulfate 4 MG/ML CARTRIDGE IVPUSH (03:21)
[2024-02-01 03:22] VITALS: BP 117/73; PULSE 74; RESP 18; O2SAT 94
[2024-02-01 04:46] VITALS: BP 117/73; PULSE 74; RESP 18; TEMP 36.8; O2SAT 94
== END 2024-02-01 04:47 | disposition home or self-care (01) ==
PROVIDERS: Emergency Provider Emergency Medicine Emergency Medical Services
DX: G54.6 Phantom limb syndrome with pain (principal); F17.210 Nicotine dependence, cigarettes, uncomplicated; Z79.899 Other long term (current) drug therapy
CPT/HCPCS: 96374; 96375; 99284; J1885; J2270

== ENCOUNTER 2024-05-31 01:25 | Emergency (ER) | payer MEDICAID, SELFPAY ==
[2024-05-31 01:43] VITALS: BP 110/94; PULSE 102; RESP 20; O2SAT 95; BMI 26.9
--- NOTE | 2024-05-31 02:57 | ED_ITS ---
HPI - Extremity Problem General Chief complaint: Extremity Problem Stated complaint: chronic nerve pain 01/05. R leg amp site. no meds Time Seen by Provider: 05/31/24 02:57 Source: patient Mode of arrival: EMS Limitations: no limitations History of Present Illness ED Provider: Dr. Mata Zhao HPI Narrative: 59-year-old male with history of Hep C, DVT, depression, Crohn's disease, ruby bstance abuse,asthma, HIV disease since 1984, right traumatic above the knee amputation who presented to the emergency department for evaluation severe right phantom limb pain. the patient states that the pain started at midnight. He states the pain is a sharp, constant pain in his right hip area where his leg used to be. The pain is greater than 10/10. Patient has had similar pain in the past and was last seen by me in the emergency department on 02/01/2024 with similar complaint. Patient states that he took his prescribed pain medications with no relief therefore he came to the emergency department by ambulance. At his previous visit the patient was treated with Toradol 15 mg IV and morphine 4 mg IV with significant improvement of his pain. Differential diagnosis: Includes but is not limited to fentanyl limb pain, cellulitis Patient was initially treated with the following: IV insert, Toradol 15 mg IV, morphine 4 mg IV Course: 04:03 Patient is feeling significantly better after the above treatment, his limb pain is resolved. Patient will be discharged home. He was advised to continue taking his medications as prescribed by his provider and to follow up with his providers for re-evaluation. Related Data Home Medications ?Medication ?Instructions ?Recorded ?Confirmed bictegravir 50 mg-emtricitabine 1 tab PO BEDTIME 03/18/22 01/16/24 200 mg-tenofovir alafenam 25 mg tablet (Biktarvy) docusate sodium 100 mg capsule 1 cap PO BID PRN constipation 03/18/22 01/16/24 gabapentin 400 mg capsule 1 cap PO TID 03/18/22 01/16/24 melatonin 5 mg tablet 1 tab PO BEDTIME 03/18/22 01/16/24 methocarbamol 500 mg tablet 1 tab PO QID PRN pain 03/18/22 01/16/24 mirtazapine 15 mg tablet 1 tab PO BEDTIME 03/18/22 01/16/24 multivitamin 1 tab PO QAM 03/18/22 01/16/24 omeprazole 20 mg capsule,delayed 1 cap PO QAM 03/18/22 01/16/24 release paroxetine HCl 20 mg tablet 1 tab PO BEDTIME 03/18/22 01/16/24 sulfamethoxazole 400 1 tab PO QAM 03/18/22 01/16/24 mg-trimethoprim 80 mg tablet sumatriptan succinate 50 mg tablet 50 mg PO DAILY PRN Migraine 03/18/22 01/16/24 Headache Previous Rx's ?Medication ?Instructions ?Recorded apixaban 5 mg (74 tabs) tablets in 5 mg PO BID #74 ea 10/22/21 a dose pack (EliqunanoMR DVT-PE Treat 30D Start) acetaminophen 500 mg tablet 500 mg PO Q6H PRN fever or pain 12/08/22 (Tylenol Extra Strength) #30 tabs morphine 15 mg immediate release 15 mg PO Q4-6H PRN pain #14 tabs 12/08/22 tablet morphine 15 mg immediate release 15 mg PO Q8H PRN pain #20 tabs 01/01/23 tablet prednisone 20 mg tablet 60 mg (3 x 20 mg) PO DAILY 5 days 02/13/23 #15 tabs morphine 15 mg immediate release 15 mg PO Q6H PRN pain 5 days #10 11/29/23 tablet tabs oxycodone-acetaminophen 5 mg-325 1 tab PO DAILY PRN pain #30 tabs 01/19/24 mg tablet Allergies Allergy/AdvReac Type Severity Reaction Status Date / Time Penicillins [PENICILLINS] Allergy Severe SWELLING Verified 05/31/24 01:46 shellfish derived Allergy Severe SWELLING Verified 05/31/24 01:46 [SHELLFISH DERIVED] CHOCOLATE Allergy Severe SWELLING Uncoded 01/31/24 23:59 [facility] Past Medical History Medical History (Updated 05/31/24 @ 06:22 by Mata Zhao MD) Amputation of leg, right, traumatic Phantom limb pain Substance abuse HIV (human immunodeficiency virus infection) Hepatitis C DVT (deep venous thrombosis) Acute deep vein thrombosis (DVT) of right femoral vein PAD (peripheral artery disease) Personal history of nicotine dependence Closed fracture of phalanx of second toe Fracture of left great toe Depression Crohn's disease Ankle fracture, left Surgical History History of surgery History of right above knee amputation History of liver biopsy History of laparoscopic cholecystectomy History of colonoscopy History of cochlear implant Family History Family History Other No family history of coronary artery disease Social History Social History Household Members: Spouse and Family Housing: Apartment Are you a primary neurocritical care physician to a significant other at home: No Do you presently have visiting nurse or other home services: No Alcohol intake: never Comment: traumatic amputation right leg Patient Tobacco Use Status: Current everyday Tobacco user Tobacco use type: Cigarette Cigarettes Per Day: 2 Years Smoked: (onset 16, 1/2-1ppd x 38yrs, 30pyh, quit 01/01/2020) Second Hand Smoke Exposure: Yes Substance Use Type: Marijuana service: No Current occupational status: unemployed Gender identity: Male Physical Exam Vital Signs: Vital Signs: Last Vital Signs Temp 97.6 F 05/31/24 07:53 Pulse 90 05/31/24 07:53 Resp 18 05/31/24 07:53 BP 105/61 05/31/24 07:53 Pulse Ox 95 05/31/24 07:53 O2 Del Method Room Air 05/31/24 07:53 BMI result Body Mass Index 26.9 vital signs were normal except for an elevated heart rate Exam: General: Awake, alert , sitting in a wheelchair, appears to be in distress secondary to his right hip Head: Normocephalic, atraumatic EENT: PERRL, Lids normal, sclera normal, conjunctiva normal, nose normal , ears normal, throat without erythema or exudates Neck: Supple, no adenopathy Lung: breath sounds symmetric, no wheezing, rales or rhonchi Chest: symmetric movement, nontender Heart: regular rate and rhythm, normal S1, S2 no murmurs or rubs Abdomen: soft, non-tender, nondistended, normal bowel sounds Back: no vertebral tenderness, no CVAT Extremities: the patient has a complete amputation of his right lower extremity at the hip. There is no increased erythema or warmth at the surgical site Medications Administered Discontinued Medications Generic Name Dose Route Start Last Admin Trade Name Freq PRN Reason Stop Dose Admin Ketorolac Tromethamine 15 mg 05/31/24 03:00 05/31/24 03:14 Ketorolac Tromethamine 15 Mg/Ml Vial IVPUSH 05/31/24 03:01 15 mg ONCE STA Administration Morphine Sulfate 4 mg 05/31/24 03:00 05/31/24 03:18 Morphine Sulfate 4 Mg/Ml Cartridge IVPUSH 05/31/24 03:01 4 mg ONCE STA Administration Protocol Morphine Sulfate 4 mg 05/31/24 06:21 05/31/24 06:29 Morphine Sulfate 4 Mg/Ml Cartridge IVPUSH 05/31/24 06:22 4 mg ONCE STA Administration Protocol Medical Decision Making Medical Decision Making MDM Narrative: 59-year-old male with history of Hep C, DVT, depression, Crohn's disease, substance abuse,asthma, HIV disease since 1984, right traumatic above the knee amputation who presented to the emergency department for evaluation severe right phantom limb pain, the pain started at midnight, is greater than 10/10 and was not relieved by his usual pain medications. Vital signs revealed and elevated heart rate. Patient did appear to be in distress secondary to his pain, his physical examination is unremarkable. Differential diagnosis: Includes but is not limited to Phantom limb pain, cellulitis Course: 02:50 Patient's presentation physical findings are consistent with his phantom pain syndrome, he has had previous presentations in the past. Patient was treated with morphine 4 mg IV and Toradol 15 mg IV. 06:45 The patient did get improvement of his pain with the above treatment but his pain was coming back therefore he was given a 2nd dose of morphine 4 mg IV. The patient will be discharged home and he was advised to continue taking his medications as prescribed by his providers. The patient is in a wheelchair therefore wheelchair van transport was ordered to get him home. Admission/Observation Consideration of admission/observation: Escalation of care including admission/ observation considered (Yes) Chronic Conditions Patient?s care impacted by: Other ( asthma, HIV, hepatitis-C) Discharge Plan Discharge Clinical Impression: Phantom limb pain Patient Disposition: Home, Self-Care Additional Instructions: You were treated with Toradol 15 mg IV, morphine 4 mg IV x2 doses Keep taking your medications as prescribed by your providers Follow-up with your doctor in 2 days. Please return to the emergency department if your symptoms get worse or if you develop any symptoms that are concerning to you. Prescriptions: No Action oxycodone-acetaminophen 5-325 mg tablet 1 tab PO DAILY PRN (Reason: pain) Qty: 30 0RF Rx Instructions: Partial Fill upon patient request. multivitamin Tablet 1 tab PO QAM methocarbamol 500 mg tablet 1 tab PO QID PRN (Reason: pain) sulfamethoxazole-trimethoprim 400-80 mg tablet 1 tab PO QAM gabapentin 400 mg capsule 1 cap PO TID sumatriptan succinate 50 mg tablet 50 mg PO DAILY PRN (Reason: Migraine Headache) paroxetine HCl 20 mg tablet 1 tab PO BEDTIME docusate sodium 100 mg capsule 1 cap PO BID PRN (Reason: constipation) omeprazole 20 mg capsule,delayed release(DR/EC) 1 cap PO QAM mirtazapine 15 mg tablet 1 tab PO BEDTIME melatonin 5 mg tablet 1 tab PO BEDTIME Biktarvy 50-200-25 mg tablet 1 tab PO BEDTIME Eliquis DVT-PE Treat 30D Start 5 mg (74 tabs) tablets,dose pack 5 mg PO BID Qty: 74 0RF acetaminophen [Tylenol Extra Strength] 500 mg tablet 500 mg PO Q6H PRN (Reason: fever or pain) Qty: 30 0RF morphine 15 mg tablet 15 mg PO Q4-6H PRN (Reason: pain) Qty: 14 0RF Rx Instructions: Patient may request partial fill; Partial Fill upon patient request. morphine 15 mg tablet 15 mg PO Q8H PRN (Reason: pain) Qty: 20 0RF Rx Instructions: Partial Fill upon patient request. prednisone 20 mg tablet 60 mg PO DAILY 5 Days Qty: 15 0RF morphine 15 mg tablet 15 mg PO Q6H PRN (Reason: pain) 5 Days Qty: 10 0RF Rx Instructions: Partial Fill upon patient request. Interventions: ED Discharge Assessment Last Done: 05/31/24 07:53 Discharge Date/Time: 05/31/24 07:54 Print Language: Macanese
--- NOTE | 2024-05-31 02:57 | PC.NURSE ---
restless in bed-- presents due to phantom pain to RLE. waiting for ED provider.
[2024-05-31] MEDS: Ketorolac Tromethamine 15 MG/ML VIAL IVPUSH (03:14)
[2024-05-31] MEDS: Morphine Sulfate 4 MG/ML CARTRIDGE IVPUSH ×2 (03:18→06:29)
--- NOTE | 2024-05-31 04:38 | PC.NURSE ---
on stretcher, no distress, mental status/mobility at baseline.
[2024-05-31 06:00] VITALS: BP 105/61; PULSE 90; RESP 18; TEMP 36.4
[2024-05-31 07:53] VITALS: BP 105/61; PULSE 90; RESP 18; TEMP 36.4; O2SAT 95
== END 2024-05-31 07:54 | disposition home or self-care (01) ==
PROVIDERS: Emergency Provider Emergency Medicine Emergency Medical Services
DX: G54.6 Phantom limb syndrome with pain (principal); Z79.899 Other long term (current) drug therapy
CPT/HCPCS: 96374; 96375; 96376; 99284; J1885; J2270

== ENCOUNTER 2024-06-01 11:24 | Emergency (ER) | payer MEDICAID, SELFPAY ==
--- NOTE | ~2024-06-01 | CT_ITS ---
CLINICAL HISTORY: right lower abdomen pelvis pain CT abdomen and pelvis with contrast Comparison: CT - CT ABDOMEN PELVIS W IV CON - 06/01/24 21:57 EST Findings: No consolidation or effusion. Left inferior renal cyst 4.5 cm. Cholecystectomy. Abdominal solid organs otherwise unremarkable. No urolithiasis. No bowel obstruction, pneumoperitoneum, or pneumatosis. Mesenteric vessels patent. Moderate stool. Prostatomegaly. Urinary bladder unremarkable. Normal appendix. Right lower extremity amputation. IMPRESSION: No acute findings. This document has been electronically signed by: Sudhir Thompson MD on 06/01/2024 22:47:46
[2024-06-01 11:36] VITALS: BP 132/82; PULSE 64; O2SAT 99
[2024-06-01 13:00] VITALS: BP 124/76; PULSE 65; RESP 16; TEMP 37; O2SAT 94; BMI 24.5
[2024-06-01] MEDS: Acetaminophen 325 MG TABLET 975 MG PO (13:03)
--- NOTE | 2024-06-01 13:03 | ED_ITS ---
HPI - Extremity Problem General Chief complaint: Extremity Problem Stated complaint: R HIP NERVE PAIN,DR TOLD HIM TO COME TO ER PER EMS Time Seen by Provider: 06/01/24 21:10 Source: patient, RN notes reviewed and old records reviewed Mode of arrival: EMS Limitations: no limitations History of Present Illness ED Provider: Padmini NUR Narrative: 59-year-old male with past medical history significant for right lower extremity amputation and chronic pain syndrome, DVT on Eliquis, HIV, hepatitis-C, Crohn's disease polysubstance abuse presents for evaluation of right hip and stump pain. Patient was seen here yesterday for pain. He reports his pain to the right hip, above the stump. He was seen here yesterday and diagnosed with phantom pain syndrome of the right lower extremity. The patient reports his pain started 2 days ago He has had similar pains in the past that has been treated well with morphine and Toradol but yesterday this did not seem to relieve his pain The patient has no abdominal pain Denies any fevers or chills Related Data Home Medications ?Medication ?Instructions ?Recorded ?Confirmed bictegravir 50 mg-emtricitabine 1 tab PO BEDTIME 03/18/22 01/16/24 200 mg-tenofovir alafenam 25 mg tablet (Biktarvy) docusate sodium 100 mg capsule 1 cap PO BID PRN constipation 03/18/22 01/16/24 gabapentin 400 mg capsule 1 cap PO TID 03/18/22 01/16/24 melatonin 5 mg tablet 1 tab PO BEDTIME 03/18/22 01/16/24 methocarbamol 500 mg tablet 1 tab PO QID PRN pain 03/18/22 01/16/24 mirtazapine 15 mg tablet 1 tab PO BEDTIME 03/18/22 01/16/24 multivitamin 1 tab PO QAM 03/18/22 01/16/24 omeprazole 20 mg capsule,delayed 1 cap PO QAM 03/18/22 01/16/24 release paroxetine HCl 20 mg tablet 1 tab PO BEDTIME 03/18/22 01/16/24 sulfamethoxazole 400 1 tab PO QAM 03/18/22 01/16/24 mg-trimethoprim 80 mg tablet sumatriptan succinate 50 mg tablet 50 mg PO DAILY PRN Migraine 03/18/22 01/16/24 Headache Previous Rx's ?Medication ?Instructions ?Recorded apixaban 5 mg (74 tabs) tablets in 5 mg PO BID #74 ea 10/22/21 a dose pack (Eliquis DVT-PE Treat 30D Start) acetaminophen 500 mg tablet 500 mg PO Q6H PRN fever or pain 12/08/22 (Tylenol Extra Strength) #30 tabs morphine 15 mg immediate release 15 mg PO Q4-6H PRN pain #14 tabs 12/08/22 tablet morphine 15 mg immediate release 15 mg PO Q8H PRN pain #20 tabs 01/01/23 tablet prednisone 20 mg tablet 60 mg (3 x 20 mg) PO DAILY 5 days 02/13/23 #15 tabs morphine 15 mg immediate release 15 mg PO Q6H PRN pain 5 days #10 11/29/23 tablet tabs oxycodone-acetaminophen 5 mg-325 1 tab PO DAILY PRN pain #30 tabs 01/19/24 mg tablet oxycodone 5 mg tablet 5 mg PO Q6H PRN severe pain (scale 06/01/24 score 7-10) #10 tabs Allergies Allergy/AdvReac Type Severity Reaction Status Date / Time Penicillins [PENICILLINS] Allergy Severe SWELLING Verified 06/01/24 13:02 shellfish derived Allergy Severe SWELLING Verified 06/01/24 13:02 [SHELLFISH DERIVED] CHOCOLATE Allergy Severe SWELLING Uncoded 01/31/24 23:59 Review of Systems 2 Constitutional: Constitutional: Denies chills and Denies fever(s) Eyes: Eyes: Denies blurry vision ENT: Denies vertigo Cardiovascular: Cardiovascular: Denies chest pain and Denies dyspnea Respiratory: Respiratory: Denies cough and Denies dyspnea Gastrointestinal: Gastrointestinal: Denies abdominal pain Musculoskeletal: Musculoskeletal: Reports arthralgias and Reports joint swelling Integumentary/Breasts: Skin/Breast: Denies rash Neurologic: Denies vertigo [facility] Past Medical History Medical History (Updated 06/01/24 @ 22:15 by Rock [place]) Amputation of leg, right, traumatic Phantom limb pain Substance abuse HIV (human immunodeficiency virus infection) Hepatitis C DVT (deep venous thrombosis) Acute deep vein thrombosis (DVT) of right femoral vein PAD (peripheral artery disease) Personal history of nicotine dependence Closed fracture of phalanx of second toe Fracture of left great toe Depression Crohn's disease Ankle fracture, left Surgical History History of surgery History of right above knee amputation History of liver biopsy History of laparoscopic cholecystectomy History of colonoscopy History of cochlear implant Family History Family History Other No family history of coronary artery disease Social History Social History Household Members: Spouse and Family Housing: Apartment Are you a primary care management associate to a significant other at home: No Do you presently have visiting nurse or other home services: No Alcohol intake: never Comment: traumatic amputation right leg Patient Tobacco Use Status: Current everyday Tobacco user Tobacco use type: Cigarette Cigarettes Per Day: 2 Years Smoked: (onset 16, 12-1ppd x 38yrs, 30pyh, quit 01/01/2020) Second Hand Smoke Exposure: Yes Substance Use Type: Marijuana Advance Directives: No Advance Directives Information Provided: No service: No Current occupational status: unemployed Gender identity: Male Physical Exam 2 Vital Signs: Vital Signs: Last Vital Signs Temp 97.0 F 06/01/24 22:36 Pulse 69 06/01/24 22:36 Resp 16 06/01/24 22:36 BP 141/65 H 06/01/24 22:36 Pulse Ox 95 06/01/24 22:36 O2 Del Method Room Air 06/01/24 22:36 BMI result Body Mass Index 24.5 Const: General: healthy appearing, comfortable, no acute distress, alert and awake Nutritional Appearance: well nourished Orientation/consciousness: p atient oriented x3 HEENT: Head: Yes normocephalic and Yes atraumatic Eyes: Eyelids: Yes eyelids normal Conjunctivae: conjunctivae normal S clerae: sclerae normal Corneas: corneas normal Pupils: Equal, round and reactive pupils present EOM: EOMs intact bilaterally Neck: Neck: Yes full ROM Resp: Effort & Inspection: normal respiratory effort, able to speak in complete sentences and not labored GI: Palpation (GI): Soft to palpation, not firm, nontender and no guarding Skin: General skin exam: elasticity normal Neuro: General: patient oriented x3 Cranial nerves: Yes Equal, round and reactive pupils present and Yes Bilaterally intact EOM present Cognition (Neuro): normal cognition Extrem: Other: Patient has a right [id number]-muhr amputation a few inches below the right hip. He has no visual skin changes, no erythema, no significant edema. He was quite tender to palpation of the anterior right hip. Course Course Course Narrative: This is a Rapid Medical Examination (RME) performed by Alee Nieves PA-C in triage. Full HPI, ROS, assessment and treatment plan per primary provider in the Main ED. 59 yo male hx Hep C, DVT, depression, Crohn's disease, substance abuse,asthma, HIV disease since 1984, right traumatic above the knee amputation here via EMS for eval of phantom limb pain to RLE. has not trialed any pain meds at home for pain. no recent injury/ falls. Plan: labs Reevaluation(s) Reevaluation #1: Patient is still complaining of pain after receiving morphine. His CT scan did not show any concerning abnormalities. There was no evidence of deeper infection or acute trauma. His pain may be related to phantom limb pain. We will discharge the patient with a short course of oxycodone Time: 23:50 Medications Administered Discontinued Medications Generic Name Dose Route Start Last Admin Trade Name Freq PRN Reason Stop Dose Admin Acetaminophen 975 mg 06/01/24 12:56 06/01/24 13:03 Acetaminophen 325 Mg Tablet PO 06/01/24 12:57 975 mg ONCE ONE Administration Hydromorphone HCl 1 mg 06/01/24 23:22 06/01/24 23:31 Hydromorphone Hcl 1 Mg/Ml Syringe IVPUSH 06/01/24 23:23 1 mg ONCE ONE Administration Protocol Iohexol 100 ml 06/01/24 22:06 06/01/24 22:07 Iohexol 350 Mg/Ml 100 Ml Infus..Btl IV 06/01/24 22:07 85 ml ONCE ONE Administration Morphine Sulfate 4 mg 06/01/24 21:20 06/01/24 21:46 Morphine Sulfate 4 Mg/Ml Cartridge IVPUSH 06/01/24 21:21 4 mg ONCE ONE Administration Protocol Ondansetron HCl 4 mg 06/01/24 21:20 06/01/24 21:44 Ondansetron Hcl 4 Mg/2 Ml Vial IVPUSH 06/01/24 21:21 4 mg ONCE ONE Administration Oxycodone HCl 10 mg 06/01/24 20:21 06/01/24 20:29 Oxycodone Hcl Immed Release 5 Mg Tablet PO 06/01/24 20:22 10 mg ONCE ONE Administration Medical Decision Making Medical Decision Making [facility] Narrative: 59-year-old male presents for evaluation of right hip pain. This does not appear to be phantom limb syndrome as his pain is above the stump. However given his exquisite tenderness, we will get a CT scan of the abdomen pelvis to rule out joint infection or deeper abscess. Differential Diagnosis Differential Diagnoses: The differential diagnosis associated with the presentation includes Right hip pain Phantom pain syndrome Abscess Osteomyelitis Lab Data [facility] Lab Attestation statement: I reviewed the patient's lab results. No leukocytosis or significant anemia. Normal platelet count. No significant electrolyte abnormalities 06/01/24 13:25 06/01/24 13:25 Labs: Lab Results 06/01/24 Range/Units 13:25 WBC 5.2 (4.8-10.8) X10*3/uL RBC 4.74 (4.60-5.80) X10*6/uL Hgb 14.1 (14.0-18.0) g/dl Hct 40.7 L (42.0-52.0) % MCV 85.9 (80.0-98.0) fL MCH 29.7 (27.0-33.0) pg MCHC 34.6 (31.0-36.0) g/dl RDW 13.4 (11.0-16.0) % Plt Count 265 (160-400) X10*3/uL MPV 9.7 (9.4-12.4) fL Immature Gran % (Auto) 0.4 (0.0-0.4) % Neut % (Auto) 73.6 H (45-73) % Lymph % (Auto) 16.3 L (20-40) % [place] % (Auto) 6.0 (2-11) % Eos % (Auto) 3.1 (0-4) % Baso % (Auto) 0.6 (0-2) % Lymph # (Auto) 0.9 L (1.2-4.9) X10*3/uL [place] # (Auto) 0.3 (0.1-1.2) X10*3/uL Eos # (Auto) 0.2 (0.0-0.4) X10*3/uL Baso # (Auto) 0.0 (0.0-0.2) X10*3/uL Abs Immat Gran (auto) 0.02 (0.00-0.03) X10*3/uL Absolute Neuts (auto) 3.8 (2.0-8.3) x10*3/uL Absolute Nucleated RBC 0.000 (0.0-0.012) X10*3/uL Nucleated RBC % (auto) 0.0 (0.0-0.2) /100WBC Sodium 141 (135-145) mmol/L Potassium 4.1 D (3.3-5.1) mmol/L Chloride 104 (96-108) mmol/L Carbon Dioxide 27 (22-29) mmol/L Anion Gap 14 (12-20) BUN 21 H (9-16) mg/dL Creatinine 1.06 (0.5-1.4) mg/dL Estim Creat Clear Calc 66.8 Estimated GFR > 60 Random Glucose 107 (60-115) mg/dL Calcium 9.0 D (8.4-10.2) mg/dL Magnesium 2.0 (1.6-2.6) mg/dL Total Bilirubin 0.6 (0.0-1.0) mg/dL AST 71 H (5-37) U/L ALT 31 (0-40) U/L Alkaline Phosphatase 144 H (39-117) U/L Total Protein 7.8 (6.5-8.0) g/dL Albumin 4.2 (3.5-5.0) g/dL Radiology Impression Discussion of test interpretation with radiology: I have reviewed the radiologist's reading. Radiologist Impression: Findings: No consolidation or effusion. Left inferior renal cyst 4.5 cm. Cholecystectomy. Abdominal solid organs otherwise unremarkable. No urolithiasis. No bowel obstruction, pneumoperitoneum, or pneumatosis. Mesenteric vessels patent. Moderate stool. Prostatomegaly. Urinary bladder unremarkable. Normal appendix. Right lower extremity amputation. IMPRESSION: No acute findings. This document has been electronically signed by: Sudhir Thompson MD on 06/01/2024 22:47:46 Discharge Plan Discharge Clinical Impression: Amputation stump pain Patient Disposition: Home, Self-Care Instructions: Arthralgia (ED) Additional Instructions: Your CT scan did not show any concerning abnormalities. Use ibuprofen or Tylenol as needed for pain. You may use oxycodone for more severe breakthrough pain. This may make you drowsy, do not drink alcohol or drive after taking it Prescriptions: New oxycodone 5 mg tablet 5 mg PO Q6H PRN (Reason: severe pain (scale score 7-10)) Qty: 10 0RF Rx Instructions: Partial Fill upon patient request. No Action oxycodone-acetaminophen 5-325 mg tablet 1 tab PO DAILY PRN (Reason: pain) Qty: 30 0RF Rx Instructions: Partial Fill upon patient request. multivitamin Tablet 1 tab PO QAM methocarbamol 500 mg tablet 1 tab PO QID PRN (Reason: pain) sulfamethoxazole-trimethoprim 400-80 mg tablet 1 tab PO QAM gabapentin 400 mg capsule 1 cap PO TID sumatriptan succinate 50 mg tablet 50 mg PO DAILY PRN (Reason: Migraine Headache) paroxetine HCl 20 mg tablet 1 tab PO BEDTIME docusate sodium 100 mg capsule 1 cap PO BID PRN (Reason: constipation) omeprazole 20 mg capsule,delayed release(DR/EC) 1 cap PO QAM mirtazapine 15 mg tablet 1 tab PO BEDTIME melatonin 5 mg tablet 1 tab PO BEDTIME Biktarvy 50-200-25 mg tablet 1 tab PO BEDTIME Eliquis DVT-PE Treat 30D Start 5 mg (74 tabs) tablets,dose pack 5 mg PO BID Qty: 74 0RF acetaminophen [Tylenol Extra Strength] 500 mg tablet 500 mg PO Q6H PRN (Reason: fever or pain) Qty: 30 0RF morphine 15 mg tablet 15 mg PO Q4-6H PRN (Reason: pain) Qty: 14 0RF Rx Instructions: Patient may request partial fill; Partial Fill upon patient request. morphine 15 mg tablet 15 mg PO Q8H PRN (Reason: pain) Qty: 20 0RF Rx Instructions: Partial Fill upon patient request. prednisone 20 mg tablet 60 mg PO DAILY 5 Days Qty: 15 0RF morphine 15 mg tablet 15 mg PO Q6H PRN (Reason: pain) 5 Days Qty: 10 0RF Rx Instructions: Partial Fill upon patient request. Print Language: Danish
[2024-06-01 13:40] LABS: MANUAL DIFF FLAG NO
[2024-06-01 13:41] LABS: Basophils Percent Auto 0.6 % (0-2); Eosinophils Absolute Auto 0.2 X10*3/uL (0.0-0.4); Eosinophils Percent Auto 3.1 % (0-4); Hematocrit 40.7 % (42.0-52.0); Hemoglobin 14.1 g/dl (14.0-18.0); Imm Gran Abs Auto 0.02 X10*3/uL (0.00-0.03); Imm Gran Pct Auto 0.4 % (0.0-0.4); Lymphocytes Absolute Auto 0.9 X10*3/uL (1.2-4.9); Lymphocytes Percent Auto 16.3 % (20-40); Mean Corpuscular HGB Conc 34.6 g/dl (31.0-36.0); Mean Corpuscular Hemoglobin 29.7 pg (27.0-33.0); Mean Corpuscular Volume 85.9 fL (80.0-98.0); Mean Platelet Volume 9.7 fL (9.4-12.4); Monocytes Absolute Auto 0.3 X10*3/uL (0.1-1.2); Neutrophils Absolute Auto 3.8 x10*3/uL (2.0-8.3); Neutrophils Percent Auto 73.6 % (45-73); Platelet Count 265 X10*3/uL (160-400); Red Blood Count 4.74 X10*6/uL (4.60-5.80); Red Cell Distribution Width 13.4 % (11.0-16.0); White Blood Count 5.2 X10*3/uL (4.8-10.8)
[2024-06-01 14:07] LABS: Albumin Level 4.2 g/dL (3.5-5.0); Alkaline Phosphatase 144 U/L (39-117); Anion Gap 14 (12-20); Aspartate Amino Transferase 71 U/L (5-37); Bilirubin Total 0.6 mg/dL (0.0-1.0); Blood Urea Nitrogen 21 mg/dL (9-16); Carbon Dioxide 27 mmol/L (22-29); Chloride 104 mmol/L (96-108); Creatinine Clr Calc Pharmacy 66.8; Estimated Glomerular Filt Rate > 60; Glucose Random 107 mg/dL (60-115); Potassium 4.1 mmol/L (3.3-5.1); Sodium 141 mmol/L (135-145); Total Protein 7.8 g/dL (6.5-8.0)
[2024-06-01 14:22] LABS: Alanine Aminotransferase 31 U/L (0-40)
[2024-06-01 20:16] VITALS: BP 134/72; PULSE 76; RESP 16; TEMP 36.5; O2SAT 94
[2024-06-01] MEDS: oxyCODONE HCl Immed Release 5 MG TABLET 10 MG PO (20:29)
[2024-06-01] MEDS: ondansetron HCL 4 MG/2 ML VIAL IVPUSH (21:44)
[2024-06-01] MEDS: Morphine Sulfate 4 MG/ML CARTRIDGE IVPUSH (21:46)
[2024-06-01] MEDS: iohexoL 350 MG/ML 100 ML INFUS..BTL IV (22:07)
[2024-06-01 22:36] VITALS: BP 141/65; PULSE 69; RESP 16; TEMP 36.1; O2SAT 95
[2024-06-01] MEDS: HYDROmorphone HCl 1 MG/ML SYRINGE IVPUSH (23:31)
--- NOTE | 2024-06-01 23:34 | PC.NURSE ---
medicated per jun. notified Leo wang
[2024-06-02 00:05] VITALS: BP 141/65; PULSE 69; RESP 16; TEMP 36.1; O2SAT 95
== END 2024-06-02 00:08 | disposition home or self-care (01) ==
PROVIDERS: Physician Assistant Medical; Emergency Provider Internal Medicine
DX: M25.561 Pain in right knee (principal); M25.551 Pain in right hip; R10.2 Pelvic and perineal pain; Z79.899 Other long term (current) drug therapy
CPT/HCPCS: 36415; 74177; 80053; 83735; 85025; 96374; 96375; 99284; J1171; J2270; J2405; Q9967

== ENCOUNTER → 2024-06-01 21:19 | Outpatient (BNV) | payer MEDICAID, SELFPAY | PROVIDERS: Emergency Provider Internal Medicine; Visit Provider Radiology Diagnostic Radiology | DX: R10.31 Right lower quadrant pain (principal); R10.2 Pelvic and perineal pain | CPT/HCPCS: 74177 ==

== ENCOUNTER 2024-06-16 11:46 | Outpatient (REF) | payer MEDICAID, SELFPAY ==
[2024-06-16 13:29] LABS: MANUAL DIFF FLAG NO
[2024-06-16 13:36] LABS: Basophils Percent Auto 0.4 % (0-2); Eosinophils Absolute Auto 0.1 X10*3/uL (0.0-0.4); Eosinophils Percent Auto 1.3 % (0-4); Hematocrit 43.5 % (42.0-52.0); Hemoglobin 14.7 g/dl (14.0-18.0); Imm Gran Abs Auto 0.03 X10*3/uL (0.00-0.03); Imm Gran Pct Auto 0.4 % (0.0-0.4); Lymphocytes Absolute Auto 0.9 X10*3/uL (1.2-4.9); Lymphocytes Percent Auto 13.1 % (20-40); Mean Corpuscular HGB Conc 33.8 g/dl (31.0-36.0); Mean Corpuscular Hemoglobin 28.7 pg (27.0-33.0); Mean Corpuscular Volume 84.8 fL (80.0-98.0); Mean Platelet Volume 10.2 fL (9.4-12.4); Monocytes Absolute Auto 0.7 X10*3/uL (0.1-1.2); Monocytes Percent Auto 9.2 % (2-11); Neutrophils Absolute Auto 5.4 x10*3/uL (2.0-8.3); Neutrophils Percent Auto 75.6 % (45-73); Platelet Count 317 X10*3/uL (160-400); Red Blood Count 5.13 X10*6/uL (4.60-5.80); Red Cell Distribution Width 13.2 % (11.0-16.0); White Blood Count 7.2 X10*3/uL (4.8-10.8)
[2024-06-16 14:04] LABS: Alanine Aminotransferase 30 U/L (0-40); Albumin Level 4.4 g/dL (3.5-5.0); Alkaline Phosphatase 161 U/L (39-117); Anion Gap 12 (12-20); Aspartate Amino Transferase 41 U/L (5-37); Bilirubin Total 0.7 mg/dL (0.0-1.0); Blood Urea Nitrogen 18 mg/dL (9-16); Calcium 9.3 mg/dL (8.4-10.2); Carbon Dioxide 24 mmol/L (22-29); Chloride 106 mmol/L (96-108); Estimated Glomerular Filt Rate > 60; Glucose Random 79 mg/dL (60-115); Sodium 138 mmol/L (135-145); Total Protein 8.1 g/dL (6.5-8.0)
[2024-06-17 15:24] LABS: HIV RNA PCR Qn Copies 131 copies/mL (NOT DETECTED); HIV RNA PCR Qn Log Copies 2.12 (NOT DETECTED)
[2024-06-20 16:40] LABS: Absolute CD3 Count 532 cells/uL (840-3060); Absolute CD4 Count 189 cells/uL (490-1740); Absolute CD8 Count 347 cells/uL (180-1170); Absolute Lymphocytes 973 cells/uL (850-3900); CD4 CD8 Ratio 0.54 (0.86-5.00); Percent CD3 Cells 55 % (57-85); Percent CD4 Cells 19 % (30-61); Percent CD8 Cells 36 % (12-42)
== END 2024-06-16 11:47 | disposition home or self-care (01) ==
LOC: HO.HHCL 11:46
PROVIDERS: Visit Provider Internal Medicine
DX: B20 Human immunodeficiency virus [HIV] disease (principal)
CPT/HCPCS: 36415; 80053; 85025; 86359; 86360; 87536

== ENCOUNTER 2024-08-09 15:12 | Outpatient (RCR) | payer MEDICAID, SELFPAY | END 2025-04-15 15:00 | disposition home or self-care (01) | LOC: HO.PT 15:12 | PROVIDERS: PCP General Practice; Visit Provider General Practice | DX: G54.6 Phantom limb syndrome with pain (principal) | CPT/HCPCS: 97110; 97162; 97163 ==

== ENCOUNTER 2024-09-03 07:41 | Outpatient (REF) | payer MEDICAID, SELFPAY ==
--- NOTE | ~2024-09-03 | MM_ITS ---
EXAMINATION: DXA BONE DENSITY AXIAL HISTORY: m89.9 TECHNIQUE: [employer] Dual energy absorptiometry (DEXA) of the lumbar spine, total left hip, and femoral neck was performed. COMPARISON: There are no prior studies for comparison. FINDINGS: The bone mineral density of the lumbar spine is 1.488 with a T-score of 2.3, and a Z-score of 2.9. This is indicative of normal bone mineral density. The bone mineral density of the left total hip is 0.936 with a T-score of -1.1, and a Z-score of -0.5. This is indicative of osteopenia. The bone mineral density of the left femoral neck is 0.875 with a T-score of -1.5, and a Z-score of -0.4. This is indicative of osteopenia. FRACTURE RISK: The FRAX index suggests a risk of major osteoporotic fracture of 3.5%, and of hip fracture 0.7%. MM/XR DEXA axial skeleton IMPRESSION: Based on bone mineral density, and according to World Health Organization (WHO) criteria, the diagnosis is consistent with osteopenia. All bone density values are in grams per centimeter squared (g/cm2). Statistically, 68% of repeat scans fall within 1 SD (+/- 0.010 g/cm2 for AP spine L1-L4) and 1 SD (+/- 0.012 g/cm2 for femur total) FRAX is a trademark of the [employer] [place] [facility] Met[employer], a World Health Organization (WHO) Collaborating Center. Electronically signed by: Moses Bragg MD 09/03/2024 08:26 AM EDT
== END 2024-09-03 07:42 | disposition home or self-care (01) ==
LOC: HO.MAMMO 07:41
PROVIDERS: PCP General Practice; Visit Provider Internal Medicine
DX: Z13.820 Encounter for screening for osteoporosis (principal); M89.9 Disorder of bone, unspecified; M85.89 Other specified disorders of bone density and structure, multiple sites
CPT/HCPCS: 77080

== ENCOUNTER → 2024-09-03 08:15 | Outpatient (BNV) | payer MEDICAID, SELFPAY | PROVIDERS: PCP General Practice; Visit Provider Radiology Diagnostic Radiology | DX: M89.9 Disorder of bone, unspecified (principal); Z13.820 Encounter for screening for osteoporosis | CPT/HCPCS: 77080 ==

== ENCOUNTER 2024-09-21 12:05 | Outpatient (REF) | payer MEDICAID, SELFPAY ==
--- NOTE | ~2024-09-21 | XR_ITS ---
EXAMINATION: XR ANKLE, LEFT CLINICAL INFORMATION: ankle pain and swelling x 3 days COMPARISON: October 10, 2020 TECHNIQUE: AP, lateral, and mortise views of the left ankle. FINDINGS: Old traumatic deformities involving the distal diaphysis metaphysis and epiphysis of the fibula and the medial malleolus. No acute cortical disruption or gross malalignment. Degenerative changes in the intertarsal joint. Metallic mikel in the posterior ankle near the skin and Achilles tendon. No subcutaneous emphysema. XR/XR ankle LT min 3V IMPRESSION: Old traumatic deformity without acute fracture or dislocation. Electronically signed by: Marco Antonio Murphy MD 09/21/2024 12:26 PM EDT
== END 2024-09-21 12:06 | disposition home or self-care (01) ==
LOC: HO.HHCX 12:05
PROVIDERS: PCP General Practice; Visit Provider Family Medicine
DX: M25.472 Effusion, left ankle (principal)
CPT/HCPCS: 73610

== ENCOUNTER → 2024-09-21 12:07 | Outpatient (BNV) | payer MEDICAID, SELFPAY | PROVIDERS: PCP General Practice; Visit Provider Radiology Diagnostic Radiology | DX: M25.572 Pain in left ankle and joints of left foot (principal); R22.42 Localized swelling, mass and lump, left lower limb | CPT/HCPCS: 73610 ==

== ENCOUNTER 2024-10-01 16:19 | Emergency (ER) | payer MEDICAID, SELFPAY ==
[2024-10-01 16:27] VITALS: BP 144/98; PULSE 75; O2SAT 98
[2024-10-01 16:38] VITALS: BP 141/82; PULSE 75; RESP 16; TEMP 36.2; O2SAT 98; BMI 26.6
--- NOTE | 2024-10-01 16:40 | ED.GENADULT ---
HPI - General Adult General Chief complaint: Extremity Problem Stated complaint: NERVE PAIN HX OF RBKA PER EMS Time Seen by Provider: 10/01/24 22:37 Source: patient Mode of arrival: EMS Limitations: no limitations History of Present Illness ED Provider: HPI narrative: Patient's status post AKA with chronic phantom pain comes here with increasing pain been taking morphine tablets at home without much relief no recent injury or fall Related Data Home Medications ?Medication ?Instructions ?Recorded ?Confirmed bictegravir 50 mg-emtricitabine 1 tab PO BEDTIME 03/18/22 01/16/24 200 mg-tenofovir alafenam 25 mg tablet (Biktarvy) docusate sodium 100 mg capsule 1 cap PO BID PRN constipation 03/18/22 01/16/24 gabapentin 400 mg capsule 1 cap PO TID 03/18/22 01/16/24 melatonin 5 mg tablet 1 tab PO BEDTIME 03/18/22 01/16/24 methocarbamol 500 mg tablet 1 tab PO QID PRN pain 03/18/22 01/16/24 mirtazapine 15 mg tablet 1 tab PO BEDTIME 03/18/22 01/16/24 multivitamin 1 tab PO QAM 03/18/22 01/16/24 omeprazole 20 mg capsule,delayed 1 cap PO QAM 03/18/22 01/16/24 release paroxetine HCl 20 mg tablet 1 tab PO BEDTIME 03/18/22 01/16/24 sulfamethoxazole 400 1 tab PO QAM 03/18/22 01/16/24 mg-trimethoprim 80 mg tablet sumatriptan succinate 50 mg tablet 50 mg PO DAILY PRN Migraine 03/18/22 01/16/24 Headache Previous Rx's ?Medication ?Instructions ?Recorded apixaban 5 mg (74 tabs) tablets in 5 mg PO BID #74 ea 10/22/21 a dose pack (Eliquis DVT-PE Treat 30D Start) acetaminophen 500 mg tablet 500 mg PO Q6H PRN fever or pain 12/08/22 (Tylenol Extra Strength) #30 tabs morphine 15 mg immediate release 15 mg PO Q4-6H PRN pain #14 tabs 12/08/22 tablet morphine 15 mg immediate release 15 mg PO Q8H PRN pain #20 tabs 01/01/23 tablet prednisone 20 mg tablet 60 mg (3 x 20 mg) PO DAILY 5 days 02/13/23 #15 tabs morphine 15 mg immediate release 15 mg PO Q6H PRN pain 5 days #10 11/29/23 tablet tabs oxycodone-acetaminophen 5 mg-325 1 tab PO DAILY PRN pain #30 tabs 01/19/24 mg tablet oxycodone 5 mg tablet 5 mg PO Q6H PRN severe pain (scale 06/01/24 score 7-10) #10 tabs morphine 15 mg immediate release 15 mg PO Q8H PRN pain #15 tabs 10/01/24 tablet Allergies Allergy/AdvReac Type Severity Reaction Status Date / Time Penicillins [PENICILLINS] Allergy Severe SWELLING Verified 10/01/24 16:39 shellfish derived Allergy Severe SWELLING Verified 10/01/24 16:39 [SHELLFISH DERIVED] CHOCOLATE Allergy Severe SWELLING Uncoded 01/31/24 23:59 [facility] Past Medical History Medical History (Updated 10/01/24 @ 23:09 by Sukhjinder Judge MD) Amputation of leg, right, traumatic Phantom limb pain Substance abuse HIV (human immunodeficiency virus infection) Hepatitis C DVT (deep venous thrombosis) Acute deep vein thrombosis (DVT) of right femoral vein PAD (peripheral artery disease) Personal history of nicotine dependence Closed fracture of phalanx of second toe Fracture of left great toe Depression Crohn's disease Ankle fracture, left Surgical History History of surgery History of right above knee amputation History of liver biopsy History of laparoscopic cholecystectomy History of colonoscopy History of cochlear implant Family History Family History Other No family history of coronary artery disease Social History Social History Household Members: Spouse and Family Housing: Apartment Are you a primary foster care social worker to a significant other at home: No Do you presently have visiting nurse or other home services: No Alcohol intake: never Comment: traumatic amputation right leg Patient Tobacco Use Status: Current everyday Tobacco user Tobacco use type: Cigarette Cigarettes Per Day: 2 Years Smoked: (onset 16, 1/2-1ppd x 38yrs, 30pyh, quit 01/01/2020) Second Hand Smoke Exposure: Yes Substance Use Type: Marijuana Advance Directives: No Advance Directives Information Provided: No Do you have a plan to hurt others: No Plan service: No Current occupational status: unemployed Gender identity: Male Physical Exam ED Vital Signs: Vital Signs - 24 hr 10/01/24 16:38 10/01/24 21:50 10/02/24 00:16 Temperature 97.1 F 98.2 F Pulse Rate 75 79 79 Respiratory Rate 16 16 16 Blood Pressure 141/82 H 151/92 H 151/92 H Pulse Oximetry 98 94 94 Oxygen Delivery Method Room Air Room Air Room Air BMI result Body Mass Index 26.6 Course Course Course Narrative: 10/01/24 1640 SHAYY [place] This is a Rapid Medical Examination (RME) performed by Alee Nieves PA-C in triage. Full HPI, ROS, assessment and treatment plan per primary provider in the Main ED. 59 yo male hx Hep C, DVT, depression, Crohn's disease, substance abuse,asthma, HIV disease since 1984, right traumatic above the knee amputation here via EMS for eval of phantom limb pain to RLE. has not trialed any pain meds at home for pain. no recent injury/ falls. requesting pain meds - tylenol given. Plan: labs Medications Administered Discontinued Medications Generic Name Dose Route Start Last Admin Trade Name Jag PRN Reason Stop Dose Admin Acetaminophen 975 mg 10/01/24 16:40 10/01/24 18:11 Acetaminophen 325 Mg Tablet PO 10/01/24 16:41 975 mg ONCE ONE Administration Morphine Sulfate 15 mg 10/01/24 23:07 10/01/24 23:34 Morphine Sulfate Immed Release 15 Mg Tablet PO 10/01/24 23:08 15 mg ONCE ONE Administration Medical Decision Making Lab Data 10/01/24 17:19 10/01/24 17:19 Labs: Lab Results 10/01/24 Range/Units 17:19 WBC 6.2 (4.8-10.8) X10*3/uL RBC 4.30 L (4.60-5.80) X10*6/uL Hgb 12.9 L (14.0-18.0) g/dl Hct 37.3 L (42.0-52.0) % MCV 86.7 (80.0-98.0) fL MCH 30.0 (27.0-33.0) pg MCHC 34.6 (31.0-36.0) g/dl RDW 12.8 (11.0-16.0) % Plt Count 215 D (160-400) X10*3/uL MPV 9.5 (9.4-12.4) fL Immature Gran % (Auto) 0.2 (0.0-0.4) % Neut % (Auto) 71.2 (45-73) % Lymph % (Auto) 15.0 L (20-40) % Winkler % (Auto) 8.9 (2-11) % Eos % (Auto) 4.2 H (0-4) % Baso % (Auto) 0.5 (0-2) % Lymph # (Auto) 0.9 L (1.2-4.9) X10*3/uL Winkler # (Auto) 0.6 (0.1-1.2) X10*3/uL Eos # (Auto) 0.3 (0.0-0.4) X10*3/uL Baso # (Auto) 0.0 (0.0-0.2) X10*3/uL Abs Immat Gran (auto) 0.01 (0.00-0.03) X10*3/uL Absolute Neuts (auto) 4.4 (2.0-8.3) x10*3/uL Absolute Nucleated RBC 0.000 (0.0-0.012) X10*3/uL Nucleated RBC % (auto) 0.0 (0.0-0.2) /100WBC Sodium 143 (135-145) mmol/L Potassium 3.9 (3.3-5.1) mmol/L Chloride 107 (96-108) mmol/L Carbon Dioxide 27 (22-29) mmol/L Anion Gap 13 (12-20) BUN 24 H (9-16) mg/dL Creatinine 1.17 (0.5-1.4) mg/dL Estim Creat Clear Calc 60.5 Estimated GFR > 60 Random Glucose 98 (60-115) mg/dL Calcium 9.9 D (8.4-10.2) mg/dL Magnesium 2.1 (1.6-2.6) mg/dL Total Bilirubin 0.7 (0.0-1.0) mg/dL AST 49 H (5-37) U/L ALT 33 (0-40) U/L Alkaline Phosphatase 148 H (39-117) U/L Total Protein 7.2 (6.5-8.0) g/dL Albumin 4.4 (3.5-5.0) g/dL Discharge Plan Discharge Clinical Impression: Phantom limb pain Patient Disposition: Home, Self-Care Instructions: Chronic Pain (ED) Additional Instructions: Take pain medication as prescribed Follow up with your pain clinic Prescriptions: New morphine 15 mg tablet 15 mg PO Q8H PRN (Reason: pain) Qty: 15 0RF Rx Instructions: Partial Fill upon patient request. No Action oxycodone-acetaminophen 5-325 mg tablet 1 tab PO DAILY PRN (Reason: pain) Qty: 30 0RF Rx Instructions: Partial Fill upon patient request. multivitamin Tablet 1 tab PO QAM methocarbamol 500 mg tablet 1 tab PO QID PRN (Reason: pain) sulfamethoxazole-trimethoprim 400-80 mg tablet 1 tab PO QAM gabapentin 400 mg capsule 1 cap PO TID sumatriptan succinate 50 mg tablet 50 mg PO DAILY PRN (Reason: Migraine Headache) paroxetine HCl 20 mg tablet 1 tab PO BEDTIME docusate sodium 100 mg capsule 1 cap PO BID PRN (Reason: constipation) omeprazole 20 mg capsule,delayed release(DR/EC) 1 cap PO QAM mirtazapine 15 mg tablet 1 tab PO BEDTIME melatonin 5 mg tablet 1 tab PO BEDTIME Biktarvy 50-200-25 mg tablet 1 tab PO BEDTIME Eliquis DVT-PE Treat 30D Start 5 mg (74 tabs) tablets,dose pack 5 mg PO BID Qty: 74 0RF acetaminophen [Tylenol Extra Strength] 500 mg tablet 500 mg PO Q6H PRN (Reason: fever or pain) Qty: 30 0RF morphine 15 mg tablet 15 mg PO Q4-6H PRN (Reason: pain) Qty: 14 0RF Rx Instructions: Patient may request partial fill; Partial Fill upon patient request. morphine 15 mg tablet 15 mg PO Q8H PRN (Reason: pain) Qty: 20 0RF Rx Instructions: Partial Fill upon patient request. prednisone 20 mg tablet 60 mg PO DAILY 5 Days Qty: 15 0RF morphine 15 mg tablet 15 mg PO Q6H PRN (Reason: pain) 5 Days Qty: 10 0RF Rx Instructions: Partial Fill upon patient request. oxycodone 5 mg tablet 5 mg PO Q6H PRN (Reason: severe pain (scale score 7-10)) Qty: 10 0RF Rx Instructions: Partial Fill upon patient request. Interventions: ED Discharge Assessment Last Done: 10/02/24 00:16 Discharge Date/Time: 10/01/24 23:35 Print Language: Romanian
[2024-10-01 17:24] LABS: Basophils Percent Auto 0.5 % (0-2); Eosinophils Absolute Auto 0.3 X10*3/uL (0.0-0.4); Eosinophils Percent Auto 4.2 % (0-4); Hematocrit 37.3 % (42.0-52.0); Hemoglobin 12.9 g/dl (14.0-18.0); Imm Gran Abs Auto 0.01 X10*3/uL (0.00-0.03); Imm Gran Pct Auto 0.2 % (0.0-0.4); Lymphocytes Absolute Auto 0.9 X10*3/uL (1.2-4.9); MANUAL DIFF FLAG NO; Mean Corpuscular HGB Conc 34.6 g/dl (31.0-36.0); Mean Corpuscular Volume 86.7 fL (80.0-98.0); Mean Platelet Volume 9.5 fL (9.4-12.4); Monocytes Absolute Auto 0.6 X10*3/uL (0.1-1.2); Monocytes Percent Auto 8.9 % (2-11); Neutrophils Absolute Auto 4.4 x10*3/uL (2.0-8.3); Neutrophils Percent Auto 71.2 % (45-73); Platelet Count 215 X10*3/uL (160-400); Red Cell Distribution Width 12.8 % (11.0-16.0); White Blood Count 6.2 X10*3/uL (4.8-10.8)
[2024-10-01 17:48] LABS: Alanine Aminotransferase 33 U/L (0-40); Albumin Level 4.4 g/dL (3.5-5.0); Anion Gap 13 (12-20); Aspartate Amino Transferase 49 U/L (5-37); Bilirubin Total 0.7 mg/dL (0.0-1.0); Blood Urea Nitrogen 24 mg/dL (9-16); Calcium 9.9 mg/dL (8.4-10.2); Carbon Dioxide 27 mmol/L (22-29); Chloride 107 mmol/L (96-108); Creatinine Clr Calc Pharmacy 60.5; Estimated Glomerular Filt Rate > 60; Glucose Random 98 mg/dL (60-115); Magnesium 2.1 mg/dL (1.6-2.6); Potassium 3.9 mmol/L (3.3-5.1); Sodium 143 mmol/L (135-145); Total Protein 7.2 g/dL (6.5-8.0)
[2024-10-01] MEDS: Acetaminophen 325 MG TABLET 975 MG PO (18:11)
[2024-10-01 18:45] LABS: Alkaline Phosphatase 148 U/L (39-117)
[2024-10-01 21:50] VITALS: BP 151/92; PULSE 79; RESP 16; O2SAT 94
--- NOTE | 2024-10-01 22:16 | PC.NURSE ---
pt writhing in pain on exam room stretcher, moaning, and screaming, nurse called to room- pt demands eval- advised pt is on list to be seen. pt sts pain 02/04 advised pt APAP p[rovided in WR< nursing limited on what can be ordered without an MD. heat packs applied to AKA site per pt request. call vogel within reach
[2024-10-01] MEDS: Morphine Sulfate Immed Release 15 MG TABLET PO (23:34)
[2024-10-02 00:16] VITALS: BP 151/92; PULSE 79; RESP 16; TEMP 36.8; O2SAT 94
== END 2024-10-01 23:35 | disposition home or self-care (01) ==
PROVIDERS: Physician Assistant Medical; Emergency Provider Internal Medicine; PCP General Practice
DX: G54.6 Phantom limb syndrome with pain (principal); Z79.899 Other long term (current) drug therapy; F17.210 Nicotine dependence, cigarettes, uncomplicated
CPT/HCPCS: 36415; 80053; 83735; 85025; 99283

== ENCOUNTER 2024-11-12 22:49 | Emergency (ER) | payer MEDICAID, SELFPAY ==
[2024-11-12 22:54] VITALS: BP 139/96; BP 158/96; PULSE 91; PULSE 92; RESP 18; TEMP 36.6; O2SAT 92; O2SAT 94; BMI 25.3
--- NOTE | 2024-11-12 23:53 | PC.NURSE ---
pt biba from home, a&ox, respirations even and unlabored. pt reports x4 hours of phantom limb pain reports he had a above the knee ambulation x4 years ago. pt reports he did not attempt to take any medication for relief. vss
--- NOTE | 2024-11-13 00:20 | PC.NURSE ---
pt given heatpack for pain at this time, offered minimal relief.
--- NOTE | 2024-11-13 01:51 | ED.EXTPRO ---
HPI - Extremity Problem General Chief complaint: Extremity Problem Stated complaint: LEG PAIN Time Seen by Provider: 11/13/24 01:51 Source: patient Mode of arrival: ambulatory Limitations: no limitations History of Present Illness ED Provider: HPI Narrative: Patient with right AKA 3 years ago comes here for having the phantom pain which is ongoing off and on no recent injury no open wound Related Data Home Medications ?Medication ?Instructions ?Recorded ?Confirmed bictegravir 50 mg-emtricitabine 1 tab PO BEDTIME 03/18/22 01/16/24 200 mg-tenofovir alafenam 25 mg tablet (Biktarvy) docusate sodium 100 mg capsule 1 cap PO BID PRN constipation 03/18/22 01/16/24 gabapentin 400 mg capsule 1 cap PO TID 03/18/22 01/16/24 melatonin 5 mg tablet 1 tab PO BEDTIME 03/18/22 01/16/24 methocarbamol 500 mg tablet 1 tab PO QID PRN pain 03/18/22 01/16/24 mirtazapine 15 mg tablet 1 tab PO BEDTIME 03/18/22 01/16/24 multivitamin 1 tab PO QAM 03/18/22 01/16/24 omeprazole 20 mg capsule,delayed 1 cap PO QAM 03/18/22 01/16/24 release paroxetine HCl 20 mg tablet 1 tab PO BEDTIME 03/18/22 01/16/24 sulfamethoxazole 400 1 tab PO QAM 03/18/22 01/16/24 mg-trimethoprim 80 mg tablet sumatriptan succinate 50 mg tablet 50 mg PO DAILY PRN Migraine 03/18/22 01/16/24 Headache Previous Rx's ?Medication ?Instructions ?Recorded apixaban 5 mg (74 tabs) tablets in 5 mg PO BID #74 ea 10/22/21 a dose pack (Eliquis DVT-PE Treat 30D Start) acetaminophen 500 mg tablet 500 mg PO Q6H PRN fever or pain 12/08/22 (Tylenol Extra Strength) #30 tabs morphine 15 mg immediate release 15 mg PO Q4-6H PRN pain #14 tabs 12/08/22 tablet morphine 15 mg immediate release 15 mg PO Q8H PRN pain #20 tabs 01/01/23 tablet prednisone 20 mg tablet 60 mg (3 x 20 mg) PO DAILY 5 days 02/13/23 #15 tabs morphine 15 mg immediate release 15 mg PO Q6H PRN pain 5 days #10 11/29/23 tablet tabs oxycodone-acetaminophen 5 mg-325 1 tab PO DAILY PRN pain #30 tabs 01/19/24 mg tablet oxycodone 5 mg tablet 5 mg PO Q6H PRN severe pain (scale 06/01/24 score 7-10) #10 tabs morphine 15 mg immediate release 15 mg PO Q8H PRN pain #15 tabs 10/01/24 tablet morphine 15 mg immediate release 15 mg PO Q8H PRN pain #15 tabs 11/13/24 tablet Allergies Allergy/AdvReac Type Severity Reaction Status Date / Time Penicillins (PENICILLINS) Allergy Severe SWELLING Verified 11/12/24 22:58 shellfish derived (SHELLFISH Allergy Severe SWELLING Verified 11/12/24 22:58 DERIVED) CHOCOLATE Allergy Severe SWELLING Uncoded 11/12/24 22:58 Review of Systems Review of Systems: Yes all other systems are reviewed and are negative PMFSH Past Medical History Medical History Amputation of leg, right, traumatic Phantom limb pain Substance abuse HIV (human immunodeficiency virus infection) Hepatitis C DVT (deep venous thrombosis) Acute deep vein thrombosis (DVT) of right femoral vein PAD (peripheral artery disease) Personal history of nicotine dependence Closed fracture of phalanx of second toe Fracture of left great toe Depression Crohn's disease Ankle fracture, left Surgical History History of surgery History of right above knee amputation History of liver biopsy History of laparoscopic cholecystectomy History of colonoscopy History of cochlear implant Family History Family History Other No family history of coronary artery disease Social History Social History Household Members: Spouse and Family Housing: Apartment Are you a primary college and career counselor to a significant other at home: No Do you presently have visiting nurse or other home services: No Alcohol intake: never Comment: traumatic amputation right leg Patient Tobacco Use Status: Current everyday Tobacco user Tobacco use type: Cigarette Cigarettes Per Day: 2 Years Smoked: (onset 16, 1/2-1ppd x 38yrs, 30pyh, quit 01/01/2020) Smoked in Last 30 Days: No Second Hand Smoke Exposure: Yes Use of substances other than those prescribed or required for medical reasons: No Substance Use Type: Marijuana Advance Directives: No Advance Directives Information Provided: No Do you have a plan to hurt others: No Plan service: No Current occupational status: unemployed Gender identity: Male Physical Exam Vital Signs: Vital Signs: Last Vital Signs Temp 98.7 F 11/13/24 02:09 Pulse 94 11/13/24 02:09 Resp 17 11/13/24 02:09 BP 140/86 H 11/13/24 02:09 Pulse Ox 99 11/13/24 02:09 O2 Del Method Room Air 11/13/24 02:09 BMI result Body Mass Index 25.3 Appearance: Alert. Oriented X3. No acute distress. Eyes: PERRLA, No Nystagmus ENT: Pharynx normal. Oral Mucosa moist Neck: Normal inspection. Neck supple. CVS: Normal heart rate and rhythm. Pulses normal. Respiratory: No respiratory distress. Equal air entry bilateral, no wheezing/rales/rhonchi Abdomen: Soft and nontender. Bowel sounds are present, no mass palpable, no CVA tenderness Skin: Skin warm and dry. Normal skin color. Normal skin turgor. Extremities: No lower extremity edema. No calf tenderness right AKA Neuro: Oriented X 3. No motor deficit. No sensory deficit.No cerebellar signs , cranial nerves II-XII intact Medications Administered Discontinued Medications Generic Name Dose Route Start Last Admin Trade Name Freq PRN Reason Stop Dose Admin Morphine Sulfate 15 mg 11/13/24 01:54 11/13/24 02:05 Morphine Sulfate Immed Release 15 Mg Tablet PO 11/13/24 01:55 15 mg ONCE ONE Administration Medical Decision Making Medical Decision Making MDM Narrative: Patient with fentanyl leg pain will prescribe oxycodone advised to continue his gabapentin as needed Discharge Plan Discharge Clinical Impression: Phantom limb pain Patient Disposition: Home, Self-Care Instructions: Chronic Pain (ED) Additional Instructions: Take pain medication as prescribed Follow with the pain clinic for further management Prescriptions: New morphine 15 mg tablet 15 mg PO Q8H PRN (Reason: pain) Qty: 15 0RF Rx Instructions: Partial Fill upon patient request. No Action oxycodone-acetaminophen 5-325 mg tablet 1 tab PO DAILY PRN (Reason: pain) Qty: 30 0RF Rx Instructions: Partial Fill upon patient request. multivitamin Tablet 1 tab PO QAM methocarbamol 500 mg tablet 1 tab PO QID PRN (Reason: pain) sulfamethoxazole-trimethoprim 400-80 mg tablet 1 tab PO QAM gabapentin 400 mg capsule 1 cap PO TID sumatriptan succinate 50 mg tablet 50 mg PO DAILY PRN (Reason: Migraine Headache) paroxetine HCl 20 mg tablet 1 tab PO BEDTIME docusate sodium 100 mg capsule 1 cap PO BID PRN (Reason: constipation) omeprazole 20 mg capsule,delayed release(DR/EC) 1 cap PO QAM mirtazapine 15 mg tablet 1 tab PO BEDTIME melatonin 5 mg tablet 1 tab PO BEDTIME Biktarvy 50-200-25 mg tablet 1 tab PO BEDTIME Eliquis DVT-PE Treat 30D Start 5 mg (74 tabs) tablets,dose pack 5 mg PO BID Qty: 74 0RF acetaminophen [Tylenol Extra Strength] 500 mg tablet 500 mg PO Q6H PRN (Reason: fever or pain) Qty: 30 0RF morphine 15 mg tablet 15 mg PO Q4-6H PRN (Reason: pain) Qty: 14 0RF Rx Instructions: Patient may request partial fill; Partial Fill upon patient request. morphine 15 mg tablet 15 mg PO Q8H PRN (Reason: pain) Qty: 20 0RF Rx Instructions: Partial Fill upon patient request. prednisone 20 mg tablet 60 mg PO DAILY 5 Days Qty: 15 0RF morphine 15 mg tablet 15 mg PO Q6H PRN (Reason: pain) 5 Days Qty: 10 0RF Rx Instructions: Partial Fill upon patient request. morphine 15 mg tablet 15 mg PO Q8H PRN (Reason: pain) Qty: 15 0RF Rx Instructions: Partial Fill upon patient request. oxycodone 5 mg tablet 5 mg PO Q6H PRN (Reason: severe pain (scale score 7-10)) Qty: 10 0RF Rx Instructions: Partial Fill upon patient request. Interventions: ED Discharge Assessment Last Done: 11/13/24 02:09 Discharge Date/Time: 11/13/24 02:09 Print Language: Armenian
[2024-11-13] MEDS: Morphine Sulfate Immed Release 15 MG TABLET PO (02:05)
[2024-11-13 02:06] VITALS: BP 140/86; PULSE 94; RESP 17; TEMP 37.1; O2SAT 99
[2024-11-13 02:09] VITALS: BP 140/86; PULSE 94; RESP 17; TEMP 37.1; O2SAT 99
== END 2024-11-13 02:09 | disposition home or self-care (01) ==
PROVIDERS: Emergency Provider Internal Medicine; PCP General Practice
DX: G54.6 Phantom limb syndrome with pain (principal)
CPT/HCPCS: 99283; 99284

== ENCOUNTER 2024-12-28 13:12 | Outpatient (REF) | payer MEDICAID, SELFPAY ==
[2024-12-28 16:13] LABS: MANUAL DIFF FLAG NO
[2024-12-28 16:22] LABS: Hematocrit 41.0 % (42.0-52.0); Hemoglobin 13.6 g/dl (14.0-18.0); Imm Gran Abs Auto 0.02 X10*3/uL (0.00-0.03); Imm Gran Pct Auto 0.3 % (0.0-0.4); Lymphocytes Absolute Auto 0.8 X10*3/uL (1.2-4.9); Mean Corpuscular HGB Conc 33.2 g/dl (31.0-36.0); Mean Corpuscular Hemoglobin 29.2 pg (27.0-33.0); Mean Corpuscular Volume 88.0 fL (80.0-98.0); NRBC Abs Auto 0.000 X10*3/uL (0.0-0.012); NRBC Pct Auto 0.0 /100WBC (0.0-0.2); Platelet Count 258 X10*3/uL (160-400); Red Blood Count 4.66 X10*6/uL (4.60-5.80); White Blood Count 6.0 X10*3/uL (4.8-10.8)
[2024-12-28 16:36] LABS: Alanine Aminotransferase 38 U/L (0-40); Albumin Level 4.7 g/dL (3.5-5.0); Alkaline Phosphatase 150 U/L (39-117); Anion Gap 13 (12-20); Aspartate Amino Transferase 55 U/L (5-37); Blood Urea Nitrogen 18 mg/dL (9-16); Calcium 9.3 mg/dL (8.4-10.2); Carbon Dioxide 28 mmol/L (22-29); Chloride 104 mmol/L (96-108); Cholesterol 156 mg/dL (<200); Estimated Glomerular Filt Rate > 60; HDL Cholesterol 47 mg/dL (>40); Potassium 3.8 mmol/L (3.3-5.1); Sodium 141 mmol/L (135-145); Total Protein 7.6 g/dL (6.5-8.0); Triglycerides 162 mg/dL (<150)
[2024-12-28 17:44] LABS: Reflex LDLD? No
[2024-12-29 08:15] LABS: ~HepC Num1 1.79 S/CO (0.00-0.79); ~Hepatitis C Antibody Reactive (Nonreactive)
[2024-12-29 08:43] LABS: Syphilis Screen Nonreactive (Nonreactive)
[2024-12-29 16:38] LABS: HIV RNA PCR Qn Copies 160 copies/mL (NOT DETECTED); HIV RNA PCR Qn Log Copies 2.20 (NOT DETECTED)
[2024-12-30 21:19] LABS: TS Negative Control Passed; TS Panel A 3; TS Panel B 0; TS Positive Control Passed; TSpotTB Negative (Negative)
[2024-12-31 13:54] LABS: HCV Log PCR <1.18 NOT DETECTED Log IU/mL (NOT DETECTED); HepC Viral Load <15 NOT DETECTED IU/mL (NOT DETECTED)
[2024-12-31 17:02] LABS: Absolute CD3 Count 458 cells/uL (840-3060); Absolute CD8 Count 273 cells/uL (180-1170); Percent CD3 Cells 52 % (57-85); Percent CD8 Cells 31 % (12-42)
== END 2024-12-28 13:13 | disposition home or self-care (01) ==
LOC: HO.HHCL 13:12
PROVIDERS: PCP General Practice; Visit Provider Internal Medicine
DX: Z11.1 Encounter for screening for respiratory tuberculosis (principal); Z21 Asymptomatic human immunodeficiency virus [HIV] infection status
CPT/HCPCS: 36415; 80053; 80061; 85025; 86359; 86360; 86481; 86780; 86803; 87522; 87536

== ENCOUNTER 2025-04-05 13:44 | Outpatient (REF) | payer MEDICAID, SELFPAY ==
[2025-04-05 16:59] LABS: Aspartate Amino Transferase 37 U/L (5-37)
[2025-04-07 19:18] LABS: HIV RNA PCR Qn Copies 44 copies/mL (NOT DETECTED); HIV RNA PCR Qn Log Copies 1.64 (NOT DETECTED)
== END 2025-04-05 13:45 | disposition home or self-care (01) ==
LOC: HO.HHCL 13:44
PROVIDERS: PCP General Practice; Referring Provider Internal Medicine; Visit Provider General Practice
DX: B20 Human immunodeficiency virus [HIV] disease (principal)
CPT/HCPCS: 36415; 84450; 87536

== ENCOUNTER 2025-04-11 11:38 | Outpatient (REF) | payer MEDICAID, SELFPAY ==
[2025-04-11 12:56] LABS: CDiff Gene PCR NEGATIVE (Negative)
[2025-04-11 13:43] LABS: E. coli EAEC Not Detected (Not Detect.); E. coli EPEC Not Detected (Not Detect.); E. coli ETEC Not Detected (Not Detect.); E. coli STEC Not Detected (Not Detect.); Shigella sp./EIEC Not Detected (Not Detect.)
== END 2025-04-11 11:39 | disposition home or self-care (01) ==
LOC: HO.LNP 11:38
PROVIDERS: Internal Medicine; Visit Provider General Practice
DX: R19.7 Diarrhea, unspecified (principal)
CPT/HCPCS: 87493; 87507